=== PATIENT | male | born 1970 | race Two or more races ===

== ENCOUNTER → 2020-07-03 13:09 | Outpatient (BNVA) | payer MEDICARE, MEDICAID, SELFPAY | PROVIDERS: PCP Internal Medicine; Visit Provider Internal Medicine Endocrinology, Diabetes & Metabolism | DX: E11.65 Type 2 diabetes mellitus with hyperglycemia (principal); E11.40 Type 2 diabetes mellitus with diabetic neuropathy, unspecified; E66.9 Obesity, unspecified; I10 Essential (primary) hypertension | CPT/HCPCS: 82947; 99202 ==

== ENCOUNTER 2020-08-22 08:47 | Outpatient (REF) | payer MEDICARE, MEDICAID, SELFPAY ==
--- NOTE | ~2020-08-22 | MR_ITS ---
EXAMINATION: MR LUMBAR SPINE WITHOUT CONTRAST CLINICAL INFORMATION: 49-year-old with low back pain and left leg numbness and pain. History of previous surgery. COMPARISON: -10/03/2008 MRI TECHNIQUE: MRI of the lumbar spine was obtained using routine sequences without contrast. Technical Note: Images were degraded by motion artifact. FINDINGS: Coronal Alignment:?Normal. Sagittal Alignment:?Trace retrolisthesis at L4-5. Lumbosacral Junction:?Normal. Vertebral Bodies: Normal height. Bone Marrow: No significant marrow replacing process or bone marrow edema. Conus Medullaris:?Terminates at T12.?Morphology and signal is normal. Intradural Nerve Roots: Within normal limits within the limitations of the study, with motion artifact partially obscuring visualization. L5-S1: Minimal disc space height loss and disc desiccation are noted. There is evidence of a previous left-sided hemilaminotomy and there is mild disc bulging slightly asymmetric to the left with mild encroachment on the inferior left neural foramen with associated mild left-sided foraminal narrowing. Disc bulging abuts the ventral thecal sac slightly asymmetric to the left of midline and contacts the origin of the left S1 nerve root sleeve. L4-L5: There is trace retrolisthesis at this level with normal disc space height and signal, with mild anterior marginal spondylosis with mild ligamentum flavum thickening without significant canal or neural foraminal stenosis. L3-L4: Disc space height and signal are well maintained with mild anterolateral spondylosis and minimal disc bulging asymmetric to the left without significant facet arthrosis, canal or neural foraminal stenosis. L2-L3: Disc space height and signal are well maintained with mild anterior marginal spondylosis. Small left paramedian extruded disc herniation noted with mild cephalad migration with minimal indentation of the ventral thecal sac on the left without significant facet arthrosis, canal or neural foraminal stenosis. L1-L2: Disc space height and signal well maintained without significant disc bulge or herniation and no significant spondylosis, facet arthrosis, canal or neural foraminal stenosis. Mild anterior marginal endplate spurring noted at T12-L1 and T11-T12. Paraspinal/Retroperitoneal: The visualized paravertebral soft tissues appear unremarkable. MR/MR lumbar spine wo con IMPRESSION: 1. Postsurgical changes on the left at L5-S1 as discussed above with mild disc degenerative changes and disc bulging slightly asymmetric to the left with mild encroachment on the left S1 nerve root sleeve and mild narrowing of the left neural foramen. 2. Trace retrolisthesis at L4-L5 with mild spondylosis at this level. There are minor degrees of spondylosis throughout the remainder of the lumbar spine.
== END 2020-08-22 08:48 | disposition home or self-care (01) ==
LOC: HO.MRI 08:47
PROVIDERS: PCP Internal Medicine; Visit Provider Physical Medicine & Rehabilitation
DX: M54.16 Radiculopathy, lumbar region (principal)
CPT/HCPCS: 72148

== ENCOUNTER 2020-11-04 08:12 | Outpatient (REF) | payer MEDICARE, MEDICAID, SELFPAY ==
[2020-11-04 10:43] LABS: Estimated Average Glucose 174 mg/dL; Hemoglobin A1c % 7.7 %
[2020-11-04 10:53] LABS: Alanine Aminotransferase 23 U/L (0-40); Albumin Level 3.8 g/dL (3.5-5.0); Alkaline Phosphatase 166 U/L (39-117); Anion Gap 16 (12-20); Aspartate Amino Transferase 27 U/L (5-37); Bilirubin Total 1.4 mg/dL (0.0-1.0); Blood Urea Nitrogen 13 mg/dL (9-16); Calcium 9.3 mg/dL (8.4-10.2); Carbon Dioxide 24 mmol/L (22-29); Chloride 96 mmol/L (96-108); Cholesterol 160 mg/dL; Estimated Glomerular Filt Rate > 60; Glucose Fasting 370 mg/dL (60-99); HDL Cholesterol 82 mg/dL; LDL Cholesterol Calculated 58 mg/dl; Potassium 4.1 mmol/L (3.3-5.1); Sodium 132 mmol/L (135-145); Triglycerides 102 mg/dL
[2020-11-04 11:01] LABS: Free T4 (Free Thyroxine) 0.95 ng/dL (0.71-1.85); Thyroid Stimulating Hormone 0.85 uIU/mL (0.32-4.0)
[2020-11-04 11:14] LABS: Vitamin B12 618 pg/mL (200-900)
[2020-11-05 08:07] LABS: LDL Cholesterol Direct 58 mg/dL (<100)
[2020-11-05 09:16] LABS: C Peptide 5.38 ng/mL (0.80-3.85)
== END 2020-11-04 08:13 | disposition home or self-care (01) ==
LOC: HO.10HDL 08:12
PROVIDERS: PCP Internal Medicine; Visit Provider Internal Medicine Endocrinology, Diabetes & Metabolism
DX: E11.65 Type 2 diabetes mellitus with hyperglycemia (principal); E11.40 Type 2 diabetes mellitus with diabetic neuropathy, unspecified; E66.9 Obesity, unspecified; I10 Essential (primary) hypertension; R35.1 Nocturia; H53.8 Other visual disturbances; F41.9 Anxiety disorder, unspecified; Z79.899 Other long term (current) drug therapy; Z79.4 Long term (current) use of insulin
CPT/HCPCS: 36415; 80053; 80061; 82607; 82947; 83036; 83721; 84439; 84443; 84681; 99212

== ENCOUNTER 2021-01-10 08:47 | Emergency (ER) | payer MEDICARE, MEDICAID, SELFPAY ==
[2021-01-10 09:15] VITALS: BP 132/85; PULSE 105; RESP 18; TEMP 35.5; O2SAT 95; BMI 36.9
--- NOTE | 2021-01-10 09:36 | ED_ITS ---
HPI - Allergic Reaction General Chief complaint: Allergic Reaction Stated complaint: ? allergic reaction Time Seen by Provider: 01/10/21 09:20 Source: patient Mode of arrival: ambulatory Limitations: no limitations History of Present Illness HPI narrative: Patient comes emergency room complaining of swelling in his neck and his lips. Patient states that yesterday for the 1st time he took lisinopril, states that in the afternoon he started feeling that his neck was getting swollen but had no respiratory difficulty. Patient woke up this morning with swollen lips and come to emergency room. Patient denies any shortness of breath, mild difficulty swallowing due to the swelling. MD complaint: facial swelling Related Data Home Medications Medication Instructions Recorded Confirmed olanzapine 10 mg tablet 10 mg PO BEDTIME 04/17/20 11/04/20 Previous Rx's Medication Instructions Recorded benztropine 2 mg tablet 2 mg PO DAILY #90 tab 04/19/20 citalopram 20 mg tablet 20 mg PO DAILY #90 tab 04/19/20 furosemide 20 mg tablet 20 mg PO DAILY #90 tab 04/19/20 levalbuterol tartrate 45 2 puff INHALATION Q4-6H PRN #15 g 04/19/20 mcg/actuation aerosol inhaler (Xopenex HFA) metoprolol tartrate 25 mg tablet 25 mg PO BID #180 tab 04/19/20 blood sugar diagnostic (FreeStyle #100 ea 07/18/20 Lite Strips) blood-glucose meter (FreeStyle #1 ea 07/18/20 Lite Meter) lancets 28 gauge (FreeStyle #100 ea 07/18/20 Lancets) dulaglutide 1.5 mg/0.5 mL 1.5 mg SUBCUT QWEEK 30 Days #2.5 ml 11/04/20 [facility] glipizide 10 mg tablet 10 mg PO DAILY 90 Days #90 tab 11/04/20 insulin degludec 100 unit/mL (3 20 unit SUBCUT BEDTIME 30 Days #15 11/04/20 mL) subcutaneous pen (Tresiba ml FlexTouch U-100 insulin) lisinopril 20 mg tablet 20 mg PO DAILY 90 Days #90 tab 11/04/20 metformin 500 mg tablet 500 mg PO BID #180 tab 11/04/20 pen needle, diabetic 32 gauge x #50 ea 11/04/20 (BD Leonora 2nd Gen Pen Needle) amlodipine 5 mg tablet 5 mg PO DAILY #14 tab 01/10/21 diphenhydramine HCl 25 mg capsule 25 mg PO BEDTIME #4 cap 01/10/21 (Benadryl) famotidine 20 mg tablet (Pepcid) 20 mg PO DAILY #4 tab 01/10/21 prednisone 50 mg tablet 50 mg PO DAILY #4 tab 01/10/21 Allergies Allergy/AdvReac Type Severity Reaction Status Date / Time lisinopril AdvReac Severe Angioedema Verified 01/10/21 09:37 Review of Systems Review of Systems: Constitutional : No Weight loss, No Fever, No Chills, No Night Sweats, No Fatigue, No Malaise ENT/Mouth : No Hearing loss, No Ear Pain, No Nasal Congestion, No Sinus Pain, No Hoarseness, No sore throat, No Rhinorrhea, complaining of swelling sensation in his neck, swollen lips, mild difficulty swallowing Eyes: No Eye Pain, No Swelling, No Redness, No Foreign Body, No Discharge, No Vision Changes Cardiovascular : No Chest Pain, No SOB, No Dyspnea on Exertion, No Orthopnea, No Edema, No Palpitations Respiratory : No Cough, No Sputum, No Wheezing, No Smoke Exposure, No Dyspnea Gastrointestinal : No Nausea, No Vomiting, No Diarrhea, No Constipation, No abd ominal Pain, No Hematochezia, No Melena Genitourinary : no irregular bleeding, No Dysuria, No Urinary Frequency, No Hematuria, No Urinary Incontinence, No Urgency, No Flank Pain, No Urinary Flow Changes, No Hesitancy Musculoskeletal : No joint pain, No Myalgias, No Joint Swelling Skin : No Skin Lesions, No rash Neuro : No Weakness, No Numbness, No Paresthesias, No Loss of Consciousness, No Dizziness, No Headache Psych : No Anxiety/Panic, No Depression, No SI/HI/AH/VH, No Social Issues, Heme/Lymph: No Bruising, No Bleeding,No Lymphadenopathy Endocrine : No Polyuria, No Polydipsia, No Temperature Intolerance [facility] Past Medical History Medical History Diabetes mellitus Diabetes type 2, uncontrolled Diabetic neuropathy associated with type 2 diabetes mellitus Hypertension Obesity (BMI 30-39.9) Surgical History History of circumcision History of lumbar surgery Family History Family History Father No problems noted. Mother No problems noted. Social History Social History Alcohol intake: never Smoked in Last 30 Days: No Use of substances other than those prescribed or required for medical reasons: No Advance Directives: No Advance Directives Information Provided: No Physical Exam Vital Signs: Vital Signs: Last Vital Signs Temp 95.9 F L 01/10/21 09:15 Pulse 105 H 01/10/21 09:15 Resp 18 01/10/21 09:15 BP 132/85 01/10/21 09:15 Pulse Ox 95 01/10/21 09:15 Body Mass Index 36.9 Const: Other: Appearance: Alert. Oriented X3. No acute distress. Eyes: Pupils equal, round and reactive to light. ENT: Pharynx normal. Uvula within normal limits, upper and lower lips edematous Neck: Normal inspection. Neck supple. Mild edematous changes in the neck bilaterally CVS: Normal heart rate and rhythm. Pulses normal. Normal S1 and S2 Respiratory: No respiratory distress. Breath sounds normal. No Wheezing. No rales Abdomen: Soft and nontender. No rigidity. No distention. Skin: Skin warm and dry. Normal skin color. Normal skin turgor. Extremities: No lower extremity edema. No lower extremity edema. No Lacerations. No Rash Neuro: Oriented X 3. No motor deficit. No sensory deficit. Moving all extermities. No slurred speech. Course Course Course Narrative: Patient received 2 doses of Solu-Medrol, Pepcid and Benadryl. Patient's lips are nearly back to normal. Patient has no symptoms, states he feels much better. No oropharyngeal edema present. This time, patient may be discharged home, discussed with the patient not to take lisinopril ever again. I will go ahead and switch his blood pressure medication and has instructions to follow-up with his primary care physician. Dr. Ji also saw the patient in the ED, at this time, he also does not believe that the patient is to be admitted, as mentioned above patient is nearly back to baseline and asymptomatic MDM - Allergic Reaction Lab Data Result diagrams: 01/10/21 10:07 01/10/21 12:13 Labs: Lab Results 01/10/21 01/10/21 Range/Units 10:07 12:13 WBC 10.7 (4.8-10.8) X10*3/uL RBC 5.36 (4.60-5.80) X10*6/uL Hgb 16.0 (14.0-18.0) g/dl Hct 48.1 (42-52) % MCV 89.7 (80-98) fL MCH 29.9 (27.0-33.0) pg MCHC 33.3 (31.0-36.0) g/dl RDW 13.0 (11.0-16.0) % Plt Count 186 (160-400) X10*3/uL MPV 9.4 (9.4-12.4) fL Immature Gran % (Auto) 0.6 H (0.0-0.4) % Neut % (Auto) 74.9 H (45-73) % Lymph % (Auto) 14.4 L (20-40) % Polk % (Auto) 6.2 (2-11) % Eos % (Auto) 3.2 (0-4) % Baso % (Auto) 0.7 (0-2) % Lymph # (Auto) 1.5 (1.2-4.9) X10*3/uL Polk # (Auto) 0.7 (0.1-1.2) X10*3/uL Eos # (Auto) 0.3 (0.0-0.4) X10*3/uL Baso # (Auto) 0.1 (0.0-0.2) X10*3/uL Abs Immat Gran (auto) 0.06 H (0.00-0.03) X10*3/uL Absolute Neuts (auto) 8.0 (2.0-8.3) X10*3/uL Absolute Nucleated RBC 0.000 (0.0-0.012) X10*3/uL Nucleated RBC % (auto) 0.0 (0.0-0.2) /100WBC Sodium 135 (135-145) mmol/L Potassium 4.7 (3.3-5.1) mmol/L Chloride 106 (96-108) mmol/L Carbon Dioxide 20 L (22-29) mmol/L Anion Gap 14 (12-20) BUN 11 (9-16) mg/dL Creatinine 0.81 (0.5-1.4) mg/dL Estim Creat Clear Calc 132.4 Estimated GFR > 60 Random Glucose 130 H (60-115) mg/dL Calcium 9.3 (8.4-10.2) mg/dL Total Bilirubin 1.6 H (0.0-1.0) mg/dL Direct Bilirubin 0.7 H (0.0-0.5) mg/dL AST 34 (5-37) U/L ALT 22 (0-40) U/L Alkaline Phosphatase 116 D (39-117) U/L Total Protein 7.9 (6.5-8.0) g/dL Albumin 3.8 (3.5-5.0) g/dL Discharge Plan Discharge Clinical Impression: Angioedema Qualifiers: Encounter type: initial encounter Qualified Code(s): T78.3XXA - Angioneurotic edema, initial encounter Patient Disposition: Home, Self-Care Instructions: Angioedema (ED) Additional Instructions: Do not take lisinopril ever again. Please follow-up with your primary care physician tomorrow. If you have any worsening or new symptoms, please return to the emergency room or call 911 Prescriptions: New amlodipine 5 mg tablet 5 mg PO DAILY Qty: 14 RF: 0 prednisone 50 mg tablet 50 mg PO DAILY Qty: 4 RF: 0 diphenhydramine HCl [Benadryl] 25 mg capsule 25 mg PO BEDTIME Qty: 4 RF: 0 famotidine [Pepcid] 20 mg tablet 20 mg PO DAILY Qty: 4 RF: 0 No Action benztropine 2 mg tablet 2 mg PO DAILY Qty: 90 RF: 8 citalopram 20 mg tablet 20 mg PO DAILY Qty: 90 RF: 8 metoprolol tartrate 25 mg tablet 25 mg PO BID Qty: 180 RF: 8 furosemide 20 mg tablet 20 mg PO DAILY Qty: 90 RF: 8 levalbuterol tartrate [Xopenex HFA] 45 mcg/actuation HFA aerosol inhaler 2 puff inhalation Q4-6H PRN (Reason: shortness of breath or wheezing) Qty: 15 RF: 8 (DME) FreeStyle Lite Strips Strip See Rx Instructions .ROUTE .MEDSUPPLY Qty: 100 RF: 6 (DME) blood-glucose meter [FreeStyle Lite Meter] Kit See Rx Instructions .ROUTE .MEDSUPPLY Qty: 1 RF: 0 (DME) lancets [FreeStyle Lancets] 28 gauge misc See Rx Instructions .ROUTE .MEDSUPPLY Qty: 100 RF: 6 olanzapine 10 mg tablet 10 mg PO BEDTIME RF: 0 insulin lispro [Humalog U-100 Insulin] 100 unit/mL solution 5 unit subcut ONCE Qty: 0.05 RF: 0 glipizide 10 mg tablet 10 mg PO DAILY 90 Days Qty: 90 RF: 1 Tresiba FlexTouch U-100 100 unit/mL (3 mL) insulin pen 20 unit subcut BEDTIME 30 Days Qty: 15 RF: 6 metformin 500 mg tablet 500 mg PO BID Qty: 180 RF: 8 lisinopril 20 mg tablet 20 mg PO DAILY 90 Days Qty: 90 RF: 2 (DME) pen needle, diabetic [BD Leonora 2nd Gen Pen Needle] 32 gauge x 5/32 needle See Rx Instructions .ROUTE .MEDSUPPLY Qty: 50 RF: 4 Trulicity 1.5 mg/0.5 mL pen injector 1.5 mg subcut QWEEK 30 Days Qty: 2.5 RF: 6
[2021-01-10 10:11] LABS: MANUAL DIFF FLAG NO
[2021-01-10] MEDS: Famotidine/PF 20 MG/2 ML VIAL IVPUSH ×2 (10:11→12:58)
[2021-01-10] MEDS: methylPREDNISolone Sod Succ 125 MG/2 ML VIAL IVPUSH ×2 (10:11→12:59)
[2021-01-10] MEDS: diphenhydrAMINE HCL 50 MG/ML VIAL IVPUSH (10:11)
[2021-01-10 10:12] LABS: Basophils Absolute Auto 0.1 X10*3/uL (0.0-0.2); Basophils Percent Auto 0.7 % (0-2); Eosinophils Absolute Auto 0.3 X10*3/uL (0.0-0.4); Eosinophils Percent Auto 3.2 % (0-4); Hematocrit 48.1 % (42-52); Imm Gran Abs Auto 0.06 X10*3/uL (0.00-0.03); Imm Gran Pct Auto 0.6 % (0.0-0.4); Lymphocytes Absolute Auto 1.5 X10*3/uL (1.2-4.9); Lymphocytes Percent Auto 14.4 % (20-40); Mean Corpuscular HGB Conc 33.3 g/dl (31.0-36.0); Mean Corpuscular Hemoglobin 29.9 pg (27.0-33.0); Mean Corpuscular Volume 89.7 fL (80-98); Mean Platelet Volume 9.4 fL (9.4-12.4); Monocytes Absolute Auto 0.7 X10*3/uL (0.1-1.2); Monocytes Percent Auto 6.2 % (2-11); Neutrophils Percent Auto 74.9 % (45-73); Platelet Count 186 X10*3/uL (160-400); Red Blood Count 5.36 X10*6/uL (4.60-5.80); White Blood Count 10.7 X10*3/uL (4.8-10.8)
[2021-01-10 12:56] LABS: Alanine Aminotransferase 22 U/L (0-40); Albumin Level 3.8 g/dL (3.5-5.0); Alkaline Phosphatase 116 U/L (39-117); Anion Gap 14 (12-20); Aspartate Amino Transferase 34 U/L (5-37); Bilirubin Direct 0.7 mg/dL (0.0-0.5); Bilirubin Total 1.6 mg/dL (0.0-1.0); Blood Urea Nitrogen 11 mg/dL (9-16); Calcium 9.3 mg/dL (8.4-10.2); Carbon Dioxide 20 mmol/L (22-29); Chloride 106 mmol/L (96-108); Creatinine Clr Calc Pharmacy 132.4; Estimated Glomerular Filt Rate > 60; Glucose Random 130 mg/dL (60-115); Potassium 4.7 mmol/L (3.3-5.1); Sodium 135 mmol/L (135-145); Total Protein 7.9 g/dL (6.5-8.0)
[2021-01-10 13:49] VITALS: BP 134/87; PULSE 88; RESP 16; TEMP 36.7; O2SAT 98
== END 2021-01-10 13:50 | disposition home or self-care (01) ==
PROVIDERS: Emergency Provider Emergency Medicine; PCP Internal Medicine
DX: T78.3XXA Angioneurotic edema, initial encounter (principal); T46.4X5A Adverse effect of angiotensin-converting-enzyme inhibitors, initial encounter; Y92.9 Unspecified place or not applicable; I10 Essential (primary) hypertension; E11.9 Type 2 diabetes mellitus without complications; Z79.4 Long term (current) use of insulin
CPT/HCPCS: 36415; 80048; 80076; 85025; 96374; 96375; 96376; 99284; J1200; J2930

== ENCOUNTER → 2021-03-10 08:58 | Outpatient (BNVA) | payer MEDICARE, MEDICAID, SELFPAY | PROVIDERS: PCP Internal Medicine; Visit Provider Nurse Practitioner Gerontology | DX: E11.65 Type 2 diabetes mellitus with hyperglycemia (principal); I10 Essential (primary) hypertension; E66.01 Morbid (severe) obesity due to excess calories; Z68.36 Body mass index [BMI] 36.0-36.9, adult | CPT/HCPCS: 82947; 83036; 99212 ==

== ENCOUNTER → 2021-03-27 14:16 | Outpatient (BNVA) | payer MEDICARE, MEDICAID, SELFPAY | PROVIDERS: PCP Internal Medicine; Visit Provider Nurse Practitioner Gerontology | DX: Z13.89 Encounter for screening for other disorder (principal) | CPT/HCPCS: Q3014 ==

== ENCOUNTER → 2021-07-14 08:55 | Outpatient (BNVA) | payer MEDICARE, MEDICAID, SELFPAY | PROVIDERS: PCP Internal Medicine; Visit Provider Nurse Practitioner Gerontology | DX: E11.65 Type 2 diabetes mellitus with hyperglycemia (principal); E66.01 Morbid (severe) obesity due to excess calories; I10 Essential (primary) hypertension; Z68.36 Body mass index [BMI] 36.0-36.9, adult | CPT/HCPCS: 82947; 83036; 99212 ==

== ENCOUNTER 2021-10-08 10:18 | Outpatient (REF) | payer MEDICARE, MEDICAID, SELFPAY ==
[2021-10-08 11:28] LABS: Alanine Aminotransferase 30 U/L (0-40); Albumin Level 3.9 g/dL (3.5-5.0); Alkaline Phosphatase 140 U/L (39-117); Anion Gap 15 (12-20); Aspartate Amino Transferase 37 U/L (5-37); Bilirubin Total 1.8 mg/dL (0.0-1.0); Blood Urea Nitrogen 8 mg/dL (9-16); Calcium 9.6 mg/dL (8.4-10.2); Carbon Dioxide 22 mmol/L (22-29); Chloride 103 mmol/L (96-108); Cholesterol 186 mg/dL; Estimated Glomerular Filt Rate > 60; Glucose Fasting 147 mg/dL (60-99); HDL Cholesterol 85 mg/dL; LDL Cholesterol Calculated 85 mg/dl; Potassium 4.4 mmol/L (3.3-5.1); Sodium 136 mmol/L (135-145); Total Protein 8.2 g/dL (6.5-8.0); Triglycerides 80 mg/dL
[2021-10-08 13:47] LABS: Microalbum/Creatinine Ratio Ur 20.1 ug/mg cr
[2021-10-10 00:46] LABS: LDL Cholesterol Direct 73 mg/dL (<100)
== END 2021-10-08 10:19 | disposition home or self-care (01) ==
LOC: HO.10HDL 10:18
PROVIDERS: Visit Provider Nurse Practitioner Gerontology
DX: E11.65 Type 2 diabetes mellitus with hyperglycemia (principal)
CPT/HCPCS: 36415; 80053; 80061; 82043; 83721

== ENCOUNTER → 2021-10-13 09:24 | Outpatient (BNVA) | payer MEDICARE, MEDICAID, SELFPAY | PROVIDERS: PCP Internal Medicine; Visit Provider Nurse Practitioner Gerontology | DX: E11.65 Type 2 diabetes mellitus with hyperglycemia (principal); I10 Essential (primary) hypertension; E66.01 Morbid (severe) obesity due to excess calories; Z68.36 Body mass index [BMI] 36.0-36.9, adult; Z79.4 Long term (current) use of insulin | CPT/HCPCS: 82947; 83036; 99212 ==

== ENCOUNTER 2021-10-26 11:53 | Emergency (ER) | payer MEDICARE, MEDICAID, SELFPAY ==
[2021-10-26 12:06] VITALS: BP 153/91; PULSE 104; RESP 18; TEMP 36.6; O2SAT 95; BMI 35.6
--- NOTE | 2021-10-26 15:35 | ED_ITS ---
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 He was seen here in December 2020 for angioedema after he was started on Lisinopril. He states he accidentally took the lisinopril because the old bottle was in with his medications. He denies any lip or tongue swelling, no neck swelling, no foreign body sensation in the throat, no rash or hives. No wheezing or difficulty breathing. He did not take any Benadryl prior to coming to the ER. MD complaint: other Onset (ago): hour(s) (4) Exposure: medication Symptoms: other (Anxiety, no physical symptoms of angioedema) Treatment prior to arrival: none Previous Allergic Reaction History: prior ED visit(s) and angioedema Related Data Home Medications Medication Instructions Recorded Confirmed olanzapine 10 mg tablet 10 mg PO BEDTIME 04/17/20 03/27/21 zolpidem 10 mg tablet 10 mg PO BEDTIME PRN 03/10/21 03/27/21 Previous Rx's Medication Instructions Recorded benztropine 2 mg tablet 2 mg PO DAILY #90 tab 04/19/20 citalopram 20 mg tablet 20 mg PO DAILY #90 tab 04/19/20 furosemide 20 mg tablet 20 mg PO DAILY #90 tab 04/19/20 levalbuterol tartrate 45 2 puff INHALATION Q4-6H PRN #15 g 04/19/20 mcg/actuation aerosol inhaler (Xopenex HFA) metoprolol tartrate 25 mg tablet 25 mg PO BID #180 tab 04/19/20 blood-glucose meter (FreeStyle #1 ea 07/18/20 Lite Meter) lancets 28 gauge (FreeStyle #100 ea 07/18/20 Lancets) pen needle, diabetic 32 gauge x #50 ea 11/04/20 (BD Leonora 2nd Gen Pen Needle) diphenhydramine HCl 25 mg capsule 25 mg PO BEDTIME #4 cap 01/10/21 (Benadryl) famotidine 20 mg tablet (Pepcid) 20 mg PO DAILY #4 tab 01/10/21 prednisone 50 mg tablet 50 mg PO DAILY #4 tab 01/10/21 blood sugar diagnostic (FreeStyle #100 ea 03/11/21 Lite Strips) insulin degludec 100 unit/mL (3 10 unit (0.1 mL) SUBCUT BEDTIME 30 03/27/21 mL) subcutaneous pen (Tresi Days #15 ml FlexTouch U-100 insulin) metformin 500 mg tablet 1,000 mg PO BID 90 Days #360 tab 08/15/21 glipizide 10 mg tablet 10 mg PO DAILY 90 Days #90 tab 08/22/21 atorvastatin 10 mg tablet 10 mg PO BEDTIME #30 tab 10/13/21 dulaglutide 3 mg/0.5 mL 3 mg (0.5 mL) SUBCUT QWEEK 28 Days 10/13/21 subcutaneous pen injector #2 ml (Trulicity) Allergies Allergy/AdvReac Type Severity Reaction Status Date / Time lisinopril AdvReac Severe Angioedema Verified 10/13/21 09:48 Review of Systems Review of Systems: Constitutional: No Fever, No Chills ENT/Mouth: No sore throat, No lip swelling, no tongue swelling, No Swallowing Difficulty Eyes: No Eye Pain, No Swelling, No Redness Cardiovascular: No Chest Pain, No SOB Respiratory: No Cough, No Sputum, No Wheezing, No dyspnea Skin: No Skin Lesions, No rash Neuro: No Dizziness, No Headache Psych: + Anxiety/Panic, No Depression Heme/Lymph: No Bruising, No Lymphadenopathy PMFSH Past Medical History Medical History Diabetes mellitus Diabetes type 2, uncontrolled Diabetic neuropathy associated with type 2 diabetes mellitus Hypertension Obesity (BMI 30-39.9) Obesity due to excess calories Surgical History History of circumcision History of lumbar surgery Family History Family History Father Diabetes Hypertension Heart disease Mother Diabetes Hypertension Heart disease Social History Social History Household Members: Significant Other Alcohol intake: current Patient Tobacco Use Status: Never used Tobacco Advance Directives: No Advance Directives Information Provided: No Physical Exam ED Vital Signs: Vital Signs - 24 hr 10/26/21 12:06 Temperature 97.9 F Pulse Rate 104 H Respiratory Rate 18 Blood Pressure 153/91 H Pulse Oximetry 95 BMI result Body Mass Index 35.6 Appearance: Alert. Oriented X3. No acute distress. HEENT: normal inspection, normal appearance of the lips, tongue, airway patent. Normal voice handling secretions appropriately. No facial rash. CVS: Normal heart rate and rhythm. Pulses normal. Respiratory: No respiratory distress. Lungs are clear throughout. Skin: Skin warm and dry. Normal skin color. Normal skin turgor. No rashes. Extremities: Atraumatic, normal inspection times 4 Neuro: Oriented X 3. Grossly normal, nonfocal Course Course Course Narrative: 51-year-old male with history of angioedema induced by lisinopril presents to the ER for evaluation after he accidentally ingested 1 pill of lisinopril this morning about 4 hours ago. He has manifested no symptoms of angioedema at this time and has a normal physical exam. He was counseled on what to do if he were to develop signs or symptoms of angioedema. His will throat the pill bottle of the remaining lisinopril tablets at home. He is stable for discharge home and will call 911 if he develops angioedema. Discharge Plan Discharge Clinical Impression: Adverse reaction to drug Patient Disposition: Home, Self-Care Instructions: Angioedema (ED) Additional Instructions: IF you develop any facial or lip swelling, any difficulty swallowing, tongue sw elling, wheezing or any other concerning signs or symptoms of angioedema call 911. THROW AWAY YOUR LISINOPRIL :) Prescriptions: No Action benztropine 2 mg tablet 2 mg PO DAILY Qty: 90 8RF citalopram 20 mg tablet 20 mg PO DAILY Qty: 90 8RF metoprolol tartrate 25 mg tablet 25 mg PO BID Qty: 180 8RF furosemide 20 mg tablet 20 mg PO DAILY Qty: 90 8RF levalbuterol tartrate [Xopenex HFA] 45 mcg/actuation HFA aerosol inhaler 2 puff inhalation Q4-6H PRN (Reason: shortness of breath or wheezing) Qty: 15 8RF (DME) blood-glucose meter [FreeStyle Lite Meter] Kit See Rx Instructions .ROUTE .MEDSUPPLY Qty: 1 0RF Rx Instructions: 3 times a day, E11.65 (DME) lancets [FreeStyle Lancets] 28 gauge misc See Rx Instructions .ROUTE .MEDSUPPLY Qty: 100 6RF Rx Instructions: 3 times a day, E11.65 (DME) FreeStyle Lite Strips Strip See Rx Instructions .ROUTE .MEDSUPPLY Qty: 100 11RF Rx Instructions: 3 times a day, E11.65 metformin 500 mg tablet 1,000 mg PO BID 90 Days Qty: 360 3RF glipizide 10 mg tablet 10 mg PO DAILY 90 Days Qty: 90 1RF Rx Instructions: One tablet before breakfast prednisone 50 mg tablet 50 mg PO DAILY Qty: 4 0RF Rx Instructions: start 01/11/21 diphenhydramine HCl [Benadryl] 25 mg capsule 25 mg PO BEDTIME Qty: 4 0RF Rx Instructions: start 01/11/21 famotidine [Pepcid] 20 mg tablet 20 mg PO DAILY Qty: 4 0RF olanzapine 10 mg tablet 10 mg PO BEDTIME 0RF (DME) pen needle, diabetic [BD Leonora 2nd Gen Pen Needle] 32 gauge x 5/32 needle See Rx Instructions .ROUTE .MEDSUPPLY Qty: 50 4RF Rx Instructions: once a day zolpidem 10 mg tablet 10 mg PO BEDTIME PRN0RF Tresiba FlexTouch U-100 100 unit/mL (3 mL) insulin pen 10 unit subcut BEDTIME 30 Days Qty: 15 3RF atorvastatin 10 mg tablet 10 mg PO BEDTIME Qty: 30 11RF Trulicity 3 mg/0.5 mL pen injector 3 mg subcut QWEEK 28 Days Qty: 2 6RF Interventions: ED Discharge Assessment Last Done: 10/26/21 15:53 Discharge Date/Time: 10/26/21 15:55
== END 2021-10-26 15:55 | disposition home or self-care (01) ==
LOC: HO.ED 15:49
PROVIDERS: Emergency Provider Emergency Medicine; PCP Internal Medicine
DX: T88.7XXA Unspecified adverse effect of drug or medicament, initial encounter (principal); T46.4X5A Adverse effect of angiotensin-converting-enzyme inhibitors, initial encounter; Y92.9 Unspecified place or not applicable; I10 Essential (primary) hypertension; E11.9 Type 2 diabetes mellitus without complications
CPT/HCPCS: 99282

== ENCOUNTER 2022-07-01 08:29 | Outpatient (REF) | payer MEDICARE, MEDICAID, SELFPAY ==
[2022-07-01 08:45] LABS: MANUAL DIFF FLAG NO
[2022-07-01 09:02] LABS: Basophils Absolute Auto 0.1 X10*3/uL (0.0-0.2); Eosinophils Absolute Auto 0.2 X10*3/uL (0.0-0.4); Eosinophils Percent Auto 3.4 % (0-4); Hematocrit 46.3 % (42.0-52.0); Hemoglobin 15.7 g/dl (14.0-18.0); Imm Gran Abs Auto 0.06 X10*3/uL (0.00-0.03); Lymphocytes Absolute Auto 1.2 X10*3/uL (1.2-4.9); Lymphocytes Percent Auto 21.1 % (20-40); Mean Corpuscular HGB Conc 33.9 g/dl (31.0-36.0); Mean Corpuscular Hemoglobin 31.5 pg (27.0-33.0); Mean Platelet Volume 9.9 fL (9.4-12.4); Monocytes Absolute Auto 0.6 X10*3/uL (0.1-1.2); Monocytes Percent Auto 9.4 % (2-11); Neutrophils Absolute Auto 3.7 x10*3/uL (2.0-8.3); Neutrophils Percent Auto 64.1 % (45-73); Platelet Count 133 X10*3/uL (160-400); Red Blood Count 4.98 X10*6/uL (4.60-5.80); Red Cell Distribution Width 12.9 % (11.0-16.0); White Blood Count 5.8 X10*3/uL (4.8-10.8)
[2022-07-01 09:05] LABS: Estimated Average Glucose 140 mg/dL; Hemoglobin A1c % 6.5 %
[2022-07-01 09:40] LABS: Thyroid Stimulating Hormone 1.77 uIU/mL (0.32-4.0)
[2022-07-01 09:49] LABS: Creatinine Urine 202.17 mg/dL; Microalbum/Creatinine Ratio Ur 18.3 ug/mg cr
== END 2022-07-01 08:30 | disposition home or self-care (01) ==
LOC: HO.LAB 08:29
PROVIDERS: PCP Internal Medicine; Visit Provider Internal Medicine
DX: E03.9 Hypothyroidism, unspecified (principal); E11.65 Type 2 diabetes mellitus with hyperglycemia; E11.69 Type 2 diabetes mellitus with other specified complication; D64.9 Anemia, unspecified; E66.01 Morbid (severe) obesity due to excess calories
CPT/HCPCS: 36415; 80053; 80061; 82043; 83036; 84443; 85025

== ENCOUNTER 2022-07-02 09:25 | Outpatient (REF) | payer MEDICARE, MEDICAID, SELFPAY ==
[2022-07-02 11:20] LABS: Alanine Aminotransferase 69 U/L (0-40); Albumin Level 3.7 g/dL (3.5-5.0); Alkaline Phosphatase 172 U/L (39-117); Anion Gap 16 (12-20); Aspartate Amino Transferase 88 U/L (5-37); Bilirubin Total 1.8 mg/dL (0.0-1.0); Blood Urea Nitrogen 9 mg/dL (9-16); Calcium 9.5 mg/dL (8.4-10.2); Carbon Dioxide 26 mmol/L (22-29); Chloride 100 mmol/L (96-108); Cholesterol 190 mg/dL; Estimated Glomerular Filt Rate > 60; Glucose Fasting 143 mg/dL (60-99); HDL Cholesterol 89 mg/dL; LDL Cholesterol Calculated 90 mg/dl; Potassium 4.4 mmol/L (3.3-5.1); Sodium 138 mmol/L (135-145); Total Protein 7.6 g/dL (6.5-8.0); Triglycerides 58 mg/dL
== END 2022-07-02 09:26 | disposition home or self-care (01) ==
LOC: HO.LAB 09:25
PROVIDERS: PCP Internal Medicine; Visit Provider Internal Medicine
DX: N28.9 Disorder of kidney and ureter, unspecified (principal); E78.5 Hyperlipidemia, unspecified
CPT/HCPCS: 36415; 80053; 80061

== ENCOUNTER 2022-10-09 23:55 | Emergency (ER) | payer MEDICARE, MEDICAID, SELFPAY ==
--- NOTE | ~2022-10-09 | CT_ITS ---
EXAMINATION: NONCONTRAST HEAD CT NONCONTRAST MAXILLOFACIAL CT NONCONTRAST CERVICAL SPINE CT INDICATION INFORMATION: Fall. EtOH. COMPARISON: None TECHNIQUE: Separate noncontrast CT examinations of the head, maxillofacial bones, and cervical spine were performed. Coronal and sagittal images were created for each examination at the technologist workstation. This CT examination was performed using dose optimization techniques as appropriate, variously including the following: *Automated exposure control *Adjustment of mA and/or kV according to patient size (this includes techniques or standardized protocols for targeted exams where dose is matched to indication/reason for exam; i.e. extremities or head) *Use of iterative reconstruction technique DLP: 1949 mGy-cm FINDINGS: Head: There is no evidence of acute intracranial hemorrhage or territorial infarction. No abnormal mass effect or midline shift is seen. Alexander to white matter differentiation is well preserved. No extra-axial fluid collections are identified. No hydrocephalus. Proportional prominence of the ventricles and sulcal spaces is consistent with mild volume loss. Patchy periventricular and deep white matter hypoattenuation is consistent with mild small vessel ischemic changes. No acute soft tissue abnormality. No calvarial fracture. The mastoid air cells are well aerated. Maxillofacial: No acute maxillofacial fractures are seen. The pterygoid plates are intact. Lamina papyracea are intact. The zygomatic arches are intact. The nasal bone is intact. The mandible is intact. Diffuse paranasal sinus opacification. The infundibula and middle meati are occluded. The nasal septum is midline. The mandibular heads are well-seated in the condylar fossa. Degenerative changes at the left temporomandibular joint. Multiple dental caries present. The orbits demonstrate a normal appearance bilaterally. The globes are intact, and there are no suspicious findings to suggest retrobulbar hemorrhage. Cervical spine: There is anatomic alignment of the vertebral bodies and posterior elements. The atlantoaxial and atlantooccipital articulations are intact. Vertebral body heights are maintained. There is multilevel intervertebral disc space narrowing with endplate osteophyte formation and facet arthropathy. No evidence of acute fracture. No prevertebral soft tissue swelling. Visualized portions of the lung apices are unremarkable. The thyroid gland is unremarkable. CT/CT cervical spine wo IV con IMPRESSION: 1. No acute intracranial finding. 2. No acute maxillofacial fracture. 3. No acute fracture or malalignment of the cervical spine. Moderate degenerative changes.
--- NOTE | 2022-10-10 00:07 | ECG_ITS ---
Test Reason : FALL /ETOH Blood Pressure : / mmHG Vent. Rate : 108 BPM Atrial Rate : 108 BPM P-R Int : 152 ms QRS Dur : 084 ms QT Int : 364 ms P-R-T Axes : 038 037 017 degrees QTc Int : 487 ms Sinus tachycardia Otherwise normal ECG When compared with ECG of 10-JAN-2018 02:58, No significant change was found Referred By: Roz Andrew Electronically Signed By:Carlos Patiño
[2022-10-10 00:08] VITALS: BP 140/82; PULSE 108; O2SAT 94
--- NOTE | 2022-10-10 00:09 | ED_ITS ---
HPI - Alcohol General Chief Complaint: Fall Stated Complaint: Fall/ETOH Time Seen by Provider: 10/10/22 00:01 Source: patient and EMS Mode of arrival: EMS Limitations: other (Intoxicated) History of Present Illness HPI narrative: Patient comes emergency room via EMS. Patient was drinking alcohol earlier today. Patient was with family, patient tripped, fell into a car and then face planted on the floor. Patient did not lose consciousness, patient on blood thinners. Patient has a bloody nose, multiple abrasions to the face, denies neck pain. Patient is awake and alert but intoxicated, answering questions a ppropriately Related Data Home Medications Medication Instructions Recorded Confirmed olanzapine 10 mg tablet 10 mg PO BEDTIME 04/17/20 06/11/22 zolpidem 10 mg tablet 10 mg PO BEDTIME PRN 03/10/21 06/11/22 sertraline 100 mg tablet 100 mg PO DAILY 06/11/22 06/11/22 Previous Rx's Medication Instructions Recorded citalopram 20 mg tablet 20 mg PO DAILY #90 tabs 04/19/20 furosemide 20 mg tablet 20 mg PO DAILY #90 tabs 04/19/20 levalbuterol tartrate 45 2 puff inhalation Q4-6H PRN 04/19/20 mcg/actuation aerosol inhaler shortness of breath or wheezing (Xopenex HFA) #15 grams metoprolol tartrate 25 mg tablet 25 mg PO BID #180 tabs 04/19/20 diphenhydramine HCl 25 mg capsule 25 mg PO BEDTIME #4 caps 01/10/21 (Benadryl) famotidine 20 mg tablet (Pepcid) 20 mg PO DAILY #4 tabs 01/10/21 glipizide 10 mg tablet 10 mg PO DAILY 90 days #90 tabs 08/22/21 atorvastatin 10 mg tablet 10 mg PO BEDTIME #30 tabs 10/13/21 blood sugar diagnostic (FreeStyle #100 ea 09/01/22 Lite Strips) blood-glucose meter (FreeStyle #1 ea 09/01/22 Lite Meter kit) dulaglutide 3 mg/0.5 mL 3 mg (0.5 mL) subcut QWEEK 28 days 09/01/22 subcutaneous pen injector #2 mL (Trulicity) insulin degludec 100 unit/mL (3 10 unit (0.1 mL) subcut BEDTIME 30 09/01/22 mL) subcutaneous pen (Tre #15 mL FlexTouch U-100 insulin) lancets 28 gauge (FreeStyle #100 ea 09/01/22 Lancets) metformin 500 mg tablet 1,000 mg PO BID 90 days #360 tabs 09/01/22 pen needle, diabetic 32 gauge x #50 ea 09/01/22 (BD Leonora 2nd Gen Pen Needle) Allergies Allergy/AdvReac Type Severity Reaction Status Date / Time lisinopril AdvReac Severe Angioedema Verified 06/11/22 09:59 Review of Systems Review of Systems: Constitutional : No Weight loss, No Fever, No Chills, No Night Sweats, No Fatigue, No Malaise ENT/Mouth : No Hearing loss, No Ear Pain, No Nasal Congestion, No Sinus Pain, No Hoarseness, No sore throat, No Rhinorrhea, No Swallowing Difficulty Eyes: No Eye Pain, No Swelling, No Redness, No Foreign Body, No Discharge, No Vision Changes Cardiovascular : No Chest Pain, No SOB, No Dyspnea on Exertion, No Orthopnea, No Edema, No Palpitations Respiratory : No Cough, No Sputum, No Wheezing, No Smoke Exposure, No Dyspnea Gastrointestinal : No Nausea, No Vomiting, No Diarrhea, No Constipation, No abdominal Pain, No Hematochezia, No Melena Genitourinary : no irregular bleeding, No Dysuria, No Urinary Frequency, No Hematuria, No Urinary Incontinence, No Urgency, No Flank Pain, No Urinary Flow Changes, No Hesitancy Musculoskeletal : No joint pain, No Myalgias, No Joint Swelling Skin : Complaining of abrasions and pain to the nose Neuro : No Weakness, No Numbness, No Paresthesias, No Loss of Consciousness, No Dizziness, No Headache Psych : No Anxiety/Panic, No Depression, No SI/HI/AH/VH, No Social Issues, Heme/Lymph: No Bruising, No Bleeding,No Lymphadenopathy Endocrine : No Polyuria, No Polydipsia, No Temperature Intolerance PMF Past Medical History Medical History Diabetes mellitus Diabetes type 2, uncontrolled Diabetic neuropathy associated with type 2 diabetes mellitus Hypertension Obesity (BMI 30-39.9) Obesity due to excess calories Surgical History History of circumcision History of lumbar surgery Family History Family History Father Diabetes Hypertension Heart disease Mother Diabetes Hypertension Heart disease Social History Social History Household Members: Significant Other Housing: House Alcohol intake: current Alcohol type: beer Patient Tobacco Use Status: Never used Tobacco e-Cigarette/Vaping Use: Never Used Second Hand Smoke Exposure: No Advance Directives: No Advance Directives Information Provided: Yes service: No Current occupational status: employed Cognitive needs: No Hearing needs: No Vision needs: No Physical Exam ED Vital Signs: Vital Signs - 24 hr 10/10/22 00:10 Temperature 97.2 F Pulse Rate 113 H Respiratory Rate 16 Blood Pressure 139/84 Pulse Oximetry 93 Oxygen Delivery Method Room Air BMI result Body Mass Index 32.1 Const Other: Appearance: Alert. Oriented X3. No acute distress. Eyes: Pupils equal, round and reactive to light. ENT: Pharynx normal. Epistaxis on the right nostril. Patient is missing a tooth in the front, being controlled Neck: On C-spine precautions, no palpable step-offs, no C-spine tenderness CVS: Normal heart rate and rhythm. Pulses normal. Normal S1 and S2 Respiratory: No respiratory distress. Breath sounds normal. No Wheezing. No rales Abdomen: Soft and nontender. No rigidity. No distention. Skin: Skin warm and dry. Multiple abrasions to the forehead and face Extremities: No lower extremity edema. No Lacerations. No Rash Neuro: Oriented X 3. No motor deficit. No sensory deficit. Moving all extremities. No slurred speech. CN 2 through 12 grossly intact Psych: calm, cooperative, normal affect Course Course Course Narrative: -CT scans of the head, neck, facial bones pending -all of the patient's labs are pending Medical Decision Making Medical Decision Making [facility] Narrative: -my interpretation of head CT: No intracranial bleed -I discussed with the patient that his CT scans of head face and cervical spine are negative. Patient only has superficial abrasions. -patient declined tramadol, requesting oxycodone -patient lost a tooth. Unfortunately, they were unable to find tooth Differential Diagnosis Differential Diagnoses: The differential diagnosis associated with the presentation includes Lab Data [facility] Lab Attestation statement: I reviewed the patient's lab results. 10/10/22 00:52 10/10/22 00:52 Labs: Lab Results 10/10/22 10/10/22 10/10/22 Range/Units 00:52 00:52 00:52 WBC 6.2 (4.8-10.8) X10*3/uL RBC 4.58 L (4.60-5.80) X10*6/uL Hgb 15.0 (14.0-18.0) g/dl Hct 44.9 (42.0-52.0) % MCV 98.0 (80.0-98.0) fL MCH 32.8 (27.0-33.0) pg MCHC 33.4 (31.0-36.0) g/dl RDW 13.3 (11.0-16.0) % Plt Count 123 L (160-400) X10*3/uL MPV 9.6 (9.4-12.4) fL Immature Gran % (Auto) 0.6 H (0.0-0.4) % Neut % (Auto) 72.4 (45-73) % Lymph % (Auto) 15.7 L (20-40) % Claiborne % (Auto) 7.8 (2-11) % Eos % (Auto) 2.4 (0-4) % Baso % (Auto) 1.1 (0-2) % Lymph # (Auto) 1.0 L (1.2-4.9) X10*3/uL Claiborne # (Auto) 0.5 (0.1-1.2) X10*3/uL Eos # (Auto) 0.2 (0.0-0.4) X10*3/uL Baso # (Auto) 0.1 (0.0-0.2) X10*3/uL Abs Immat Gran (auto) 0.04 H (0.00-0.03) X10*3/uL Absolute Neuts (auto) 4.5 (2.0-8.3) x10*3/uL Absolute Nucleated RBC 0.000 (0.0-0.012) X10*3/uL Nucleated RBC % (auto) 0.0 (0.0-0.2) /100WBC PT 13.1 (10.0-13.1) SEC INR 1.1 (0.9-1.1) Sodium 139 (135-145) mmol/L Potassium 3.8 (3.3-5.1) mmol/L Chloride 102 (96-108) mmol/L Carbon Dioxide 19 L (22-29) mmol/L Anion Gap 22 H (12-20) BUN 5 L (9-16) mg/dL Creatinine 0.80 (0.5-1.4) mg/dL Estim Creat Clear Calc 129.7 Estimated GFR > 60 Random Glucose 275 H (60-115) mg/dL Calcium 8.6 D (8.4-10.2) mg/dL Magnesium 1.9 (1.6-2.6) mg/dL Total Bilirubin 2.0 H (0.0-1.0) mg/dL Direct Bilirubin 0.9 H (0.0-0.5) mg/dL AST 182 H (5-37) U/L ALT 102 H (0-40) U/L Alkaline Phosphatase 226 H (39-117) U/L Troponin I High Sens (<3.5-35.0) ng/L Total Protein 7.9 (6.5-8.0) g/dL Albumin 3.6 (3.5-5.0) g/dL Ethyl Alcohol 291 mg/dL 10/10/22 Range/Units 00:52 WBC (4.8-10.8) X10*3/uL RBC (4.60-5.80) X10*6/uL Hgb (14.0-18.0) g/dl Hct (42.0-52.0) % MCV (80.0-98.0) fL MCH (27.0-33.0) pg MCHC (31.0-36.0) g/dl RDW (11.0-16.0) % Plt Count (160-400) X10*3/uL MPV (9.4-12.4) fL Immature Gran % (Auto) (0.0-0.4) % Neut % (Auto) (45-73) % Lymph % (Auto) (20-40) % Claiborne % (Auto) (2-11) % Eos % (Auto) (0-4) % Baso % (Auto) (0-2) % Lymph # (Auto) (1.2-4.9) X10*3/uL Claiborne # (Auto) (0.1-1.2) X10*3/uL Eos # (Auto) (0.0-0.4) X10*3/uL Baso # (Auto) (0.0-0.2) X10*3/uL Abs Immat Gran (auto) (0.00-0.03) X10*3/uL Absolute Neuts (auto) (2.0-8.3) x10*3/uL Absolute Nucleated RBC (0.0-0.012) X10*3/uL Nucleated RBC % (auto) (0.0-0.2) /100WBC PT (10.0-13.1) SEC INR (0.9-1.1) Sodium (135-145) mmol/L Potassium (3.3-5.1) mmol/L Chloride (96-108) mmol/L Carbon Dioxide (22-29) mmol/L Anion Gap (12-20) BUN (9-16) mg/dL Creatinine (0.5-1.4) mg/dL Estim Creat Clear Calc Estimated GFR Random Glucose (60-115) mg/dL Calcium (8.4-10.2) mg/dL Magnesium (1.6-2.6) mg/dL Total Bilirubin (0.0-1.0) mg/dL Direct Bilirubin (0.0-0.5) mg/dL AST (5-37) U/L ALT (0-40) U/L Alkaline Phosphatase (39-117) U/L Troponin I High Sens 3.1 (<3.5-35.0) ng/L Total Protein (6.5-8.0) g/dL Albumin (3.5-5.0) g/dL Ethyl Alcohol mg/dL Radiology Impression Discussion of test interpretation with radiology: I have reviewed the radiologist's reading. Radiologist Impression: FINDINGS: Head: There is no evidence of acute intracranial hemorrhage or territorial infarction. No abnormal mass effect or midline shift is seen. Alexander to white matter differentiation is well preserved. No extra-axial fluid collections are identified. No hydrocephalus. Proportional prominence of the ventricles and sulcal spaces is consistent with mild volume loss. Patchy periventricular and deep white matter hypoattenuation is consistent with mild small vessel ischemic changes. No acute soft tissue abnormality. No calvarial fracture. The mastoid air cells are well aerated. Maxillofacial: No acute maxillofacial fractures are seen. The pterygoid plates are intact. Lamina papyracea are intact. The zygomatic arches are intact. The nasal bone is intact. The mandible is intact. Diffuse paranasal sinus opacification. The infundibula and middle meati are occluded. The nasal septum is midline. The mandibular heads are well-seated in the condylar fossa. Degenerative changes at the left temporomandibular joint. Multiple dental caries present. The orbits demonstrate a normal appearance bilaterally. The globes are intact, and there are no suspicious findings to suggest retrobulbar hemorrhage. Cervical spine: There is anatomic alignment of the vertebral bodies and posterior elements. The atlantoaxial and atlantooccipital articulations are intact. Vertebral body heights are maintained. There is multilevel intervertebral disc space narrowing with endplate osteophyte formation and facet arthropathy. No evidence of acute fracture. No prevertebral soft tissue swelling. Visualized portions of the lung apices are unremarkable. The thyroid gland is unremarkable. CT/CT facial bones wo IV con IMPRESSION: 1.? No acute intracranial finding. 2.? No acute maxillofacial fracture. 3.? No acute fracture or malalignment of the cervical spine. Moderate degenerative changes. ? Medications Administered Discontinued Medications Generic Name Dose Route Start Last Admin Trade Name Freq PRN Reason Stop Dose Admin Acetaminophen 975 mg 10/10/22 01:58 10/10/22 02:01 Acetaminophen 325 Mg Tablet PO 10/10/22 01:59 975 mg ONCE ONE Administration Ondansetron HCl 4 mg 10/10/22 00:08 10/10/22 00:25 Ondansetron Odt 4 Mg Tab.Rapdis TRANSLINGU 10/10/22 00:09 4 mg ONCE ONE Administration Tramadol HCl 50 mg 10/10/22 01:19 10/10/22 01:58 Tramadol Hcl 50 Mg Tablet PO 10/10/22 01:20 Not Given ONCE ONE Discharge Plan Discharge Clinical Impression: Alcohol intoxication, Abrasion, Fall, Avulsed tooth Patient Disposition: Home, Self-Care Instructions: Alcohol Intoxication (ED), Abrasion (ED) Additional Instructions: Please follow-up with your primary care physician and with her dentist tomorrow. If you have any worsening or new symptoms, please return to the emergency room or call 911 Prescriptions: No Action citalopram 20 mg tablet 20 mg PO DAILY Qty: 90 8RF metoprolol tartrate 25 mg tablet 25 mg PO BID Qty: 180 8RF furosemide 20 mg tablet 20 mg PO DAILY Qty: 90 8RF levalbuterol tartrate [Xopenex HFA] 45 mcg/actuation HFA aerosol inhaler 2 puff inhalation Q4-6H PRN (Reason: shortness of breath or wheezing) Qty: 15 8RF glipizide 10 mg tablet 10 mg PO DAILY 90 Days Qty: 90 1RF Rx Instructions: One tablet before breakfast (DME) FreeStyle Lite Strips Strip See Rx Instructions .ROUTE .MEDSUPPLY Qty: 100 11RF Rx Instructions: 3 times a day, E11.65 (DME) blood-glucose meter [FreeStyle Lite Meter] Kit See Rx Instructions .ROUTE .MEDSUPPLY Qty: 1 0RF Rx Instructions: 3 times a day, E11.65 Trulicity 3 mg/0.5 mL pen injector 3 mg subcut QWEEK 28 Days Qty: 2 8RF Tresiba FlexTouch U-100 100 unit/mL (3 mL) insulin pen 10 unit subcut BEDTIME 30 Days Qty: 15 3RF (DME) lancets [FreeStyle Lancets] 28 gauge misc See Rx Instructions .ROUTE .MEDSUPPLY Qty: 100 6RF Rx Instructions: 3 times a day, E11.65 metformin 500 mg tablet 1,000 mg PO BID 90 Days Qty: 360 3RF (DME) pen needle, diabetic [BD Leonora 2nd Gen Pen Needle] 32 gauge x 5/32 needle See Rx Instructions .ROUTE .MEDSUPPLY Qty: 50 4RF Rx Instructions: once a day diphenhydramine HCl [Benadryl] 25 mg capsule 25 mg PO BEDTIME Qty: 4 0RF Rx Instructions: start 01/11/21 famotidine [Pepcid] 20 mg tablet 20 mg PO DAILY Qty: 4 0RF olanzapine 10 mg tablet 10 mg PO BEDTIME sertraline 100 mg tablet 100 mg PO DAILY zolpidem 10 mg tablet 10 mg PO BEDTIME PRN atorvastatin 10 mg tablet 10 mg PO BEDTIME Qty: 30 11RF
[2022-10-10 00:10] VITALS: BP 139/84; PULSE 113; RESP 16; TEMP 36.2; O2SAT 93; BMI 32.1
[2022-10-10] MEDS: Ondansetron ODT 4 MG TAB.RAPDIS TRANSLINGU (00:25)
--- NOTE | 2022-10-10 00:36 | PC.NURSE ---
Pt removed C-Collar by himself and refuses to put it back on.
[2022-10-10 00:58] LABS: Imm Gran Abs Auto 0.04 X10*3/uL (0.00-0.03); Imm Gran Pct Auto 0.6 % (0.0-0.4); Monocytes Percent Auto 7.8 % (2-11); PLT CLUMP 1; SCAN SMEAR FLAG 1
[2022-10-10 00:59] LABS: Basophils Absolute Auto 0.1 X10*3/uL (0.0-0.2); Basophils Percent Auto 1.1 % (0-2); Eosinophils Absolute Auto 0.2 X10*3/uL (0.0-0.4); Eosinophils Percent Auto 2.4 % (0-4); Hematocrit 44.9 % (42.0-52.0); Lymphocytes Percent Auto 15.7 % (20-40); Mean Corpuscular HGB Conc 33.4 g/dl (31.0-36.0); Mean Corpuscular Hemoglobin 32.8 pg (27.0-33.0); Mean Platelet Volume 9.6 fL (9.4-12.4); Monocytes Absolute Auto 0.5 X10*3/uL (0.1-1.2); Neutrophils Absolute Auto 4.5 x10*3/uL (2.0-8.3); Neutrophils Percent Auto 72.4 % (45-73); Red Blood Count 4.58 X10*6/uL (4.60-5.80); Red Cell Distribution Width 13.3 % (11.0-16.0)
--- NOTE | 2022-10-10 00:59 | MHC.EDTECH ---
pt came in via [facility] ,pt vitals sign taken ,pt clothing was covered in vomit and lg amount blood, of pt face ,pt arrived ,and gave me permission to cut t- shirt off ,lynne alejandra removed ,pt has money in his pocket ,i asked pct doyle to help me to count the money ,both patient and pt said no need to count money ,pt said he give his permission to take money home ,pt was clean up including blood on pt face ,ekg taken and was read by Provider ,blood drawn and send to lab ,pt remain at bed side .
[2022-10-10 01:01] LABS: Platelet Count 123 X10*3/uL (160-400); White Blood Count 6.2 X10*3/uL (4.8-10.8)
[2022-10-10 01:02] LABS: MANUAL DIFF FLAG NO
[2022-10-10 01:08] LABS: INTERNATIONAL NORM RATIO 1.1 (0.9-1.1); Prothrombin Time 13.1 SEC (10.0-13.1)
[2022-10-10 01:13] LABS: Alanine Aminotransferase 102 U/L (0-40); Albumin Level 3.6 g/dL (3.5-5.0); Alkaline Phosphatase 226 U/L (39-117); Anion Gap 22 (12-20); Aspartate Amino Transferase 182 U/L (5-37); Bilirubin Direct 0.9 mg/dL (0.0-0.5); Blood Urea Nitrogen 5 mg/dL (9-16); Calcium 8.6 mg/dL (8.4-10.2); Carbon Dioxide 19 mmol/L (22-29); Chloride 102 mmol/L (96-108); Creatinine Clr Calc Pharmacy 129.7; Estimated Glomerular Filt Rate > 60; Ethanol 291 mg/dL; Glucose Random 275 mg/dL (60-115); Magnesium 1.9 mg/dL (1.6-2.6); Potassium 3.8 mmol/L (3.3-5.1); Sodium 139 mmol/L (135-145); Total Protein 7.9 g/dL (6.5-8.0)
[2022-10-10 01:17] LABS: Troponin-I High Sensitivity 3.1 ng/L (<3.5-35.0)
--- NOTE | 2022-10-10 01:45 | PC.NURSE ---
Pt stated tramadol upsets his stomach, requested oxycodone. Informed Dr Andrew who stated pt can have tylenol.
[2022-10-10] MEDS: Acetaminophen 325 MG TABLET 975 MG PO (02:01)
[2022-10-10 02:47] VITALS: BP 132/80; PULSE 100; RESP 16; TEMP 36.6; O2SAT 97
[2022-10-10] MEDS: oxyCODONE HCl Immed Release 5 MG TABLET PO (02:47)
== END 2022-10-10 02:52 | disposition home or self-care (01) ==
PROVIDERS: Emergency Provider Emergency Medicine
DX: S00.81XA Abrasion of other part of head, initial encounter (principal); S03.2XXA Dislocation of tooth, initial encounter; W01.198A Fall on same level from slipping, tripping and stumbling with subsequent striking against other object, initial encounter; F10.920 Alcohol use, unspecified with intoxication, uncomplicated; Y90.8 Blood alcohol level of 240 mg/100 ml or more; R04.0 Epistaxis; I10 Essential (primary) hypertension; E11.9 Type 2 diabetes mellitus without complications; E78.5 Hyperlipidemia, unspecified; Y93.89 Activity, other specified; Y92.414 Local residential or business street as the place of occurrence of the external cause; Y99.9 Unspecified external cause status; Z79.4 Long term (current) use of insulin; Z79.02 Long term (current) use of antithrombotics/antiplatelets; Z79.899 Other long term (current) drug therapy
CPT/HCPCS: 36415; 70450; 70486; 72125; 80048; 80076; 82077; 83735; 84484; 85025; 85610; 93005; 99284; 99285

== ENCOUNTER 2022-12-27 08:46 | Emergency (ER) | payer MEDICARE, MEDICAID, SELFPAY ==
[2022-12-27 08:59] VITALS: BP 139/88; PULSE 103; RESP 17; TEMP 36.6; O2SAT 93; BMI 37.2
--- NOTE | 2022-12-27 09:29 | ED.ALLEREA ---
HPI - Allergic Reaction General Chief complaint: Allergic Reaction Stated complaint: allergic reaction? Time Seen by Provider: 12/27/22 09:12 Source: patient Mode of arrival: ambulatory Limitations: no limitations History of Present Illness HPI narrative: patient is a 52 old male presents emergency department for evaluation of swelling to his lower lip and bilateral eyes. States that he awoke at 07:00 this morning with this swelling. He states that last night he did take Advil for headache, although it is not uncommon for him to take Advil. He reports a history of angioedema to lisinopril 2 years ago, he denies taking this medication any longer. He denies any other new medications or new foods. Additionally denies any new detergents soaps or facial products. He denies any chest pain, shortness of breath, difficulty breathing. Related Data Home Medications Medication Instructions Recorded Confirmed olanzapine 10 mg tablet 10 mg PO BEDTIME 04/17/20 06/11/22 zolpidem 10 mg tablet 10 mg PO BEDTIME PRN 03/10/21 06/11/22 sertraline 100 mg tablet 100 mg PO DAILY 06/11/22 06/11/22 Previous Rx's Medication Instructions Recorded citalopram 20 mg tablet 20 mg PO DAILY #90 tabs 04/19/20 furosemide 20 mg tablet 20 mg PO DAILY #90 tabs 04/19/20 levalbuterol tartrate 45 2 puff inhalation Q4-6H PRN 04/19/20 mcg/actuation aerosol inhaler shortness of breath or wheezing (Xopenex HFA) #15 grams metoprolol tartrate 25 mg tablet 25 mg PO BID #180 tabs 04/19/20 diphenhydramine HCl 25 mg capsule 25 mg PO BEDTIME #4 caps 01/10/21 (Benadryl) famotidine 20 mg tablet (Pepcid) 20 mg PO DAILY #4 tabs 01/10/21 glipizide 10 mg tablet 10 mg PO DAILY 90 days #90 tabs 08/22/21 atorvastatin 10 mg tablet 10 mg PO BEDTIME #30 tabs 10/13/21 blood sugar diagnostic (FreeStyle #100 ea 09/01/22 Lite Strips) blood-glucose meter (FreeStyle #1 ea 09/01/22 Lite Meter kit) dulaglutide 3 mg/0.5 mL 3 mg (0.5 mL) subcut QWEEK 28 days 09/01/22 subcutaneous pen injector #2 mL (Trulicity) insulin degludec 100 unit/mL (3 10 unit (0.1 mL) subcut BEDTIME 30 09/01/22 mL) subcutaneous pen (Tresi days #15 mL FlexTouch U-100 insulin) lancets 28 gauge (FreeStyle #100 ea 09/01/22 Lancets) metformin 500 mg tablet 1,000 mg PO BID 90 days #360 tabs 09/01/22 pen needle, diabetic 32 gauge x #50 ea 09/01/22 (BD Leonora 2nd Gen Pen Needle) diphenhydramine HCl 25 mg capsule 25 mg PO BEDTIME #4 caps 12/27/22 famotidine 20 mg tablet (Pepcid) 20 mg PO DAILY #4 tabs 12/27/22 prednisone 50 mg tablet 50 mg PO DAILY #4 tabs 12/27/22 Allergies Allergy/AdvReac Type Severity Reaction Status Date / Time lisinopril AdvReac Severe Angioedema Verified 06/11/22 09:59 Review of Systems Review of Systems: Constitutional: No fever, chills, weakness or fatigue. Skin: No rash or itching. Cardiovascular: No chest pain, chest pressure or chest discomfort. No palpitations or pedal edema. Respiratory: No shortness of breath, cough or sputum production. Gastrointestinal: No anorexia, nausea, vomiting or diarrhea. No abdominal pain o Genitourinary: No burning micturition. No urinary frequency or incontinence. Musculoskeletal: No muscle pain, back pain, joint pain or stiffness. Psychiatric: No depression or anxiety. Yes all other systems are reviewed and are negative REPLACED BY [facility] Past Medical History Attestation statement: The following information was validated with the patient. Source: old records reviewed Medical History Diabetes mellitus Diabetes type 2, uncontrolled Diabetic neuropathy associated with type 2 diabetes mellitus Hypertension Obesity (BMI 30-39.9) Obesity due to excess calories Surgical History History of circumcision History of lumbar surgery Family History Family History Father Diabetes Hypertension Heart disease Mother Diabetes Hypertension Heart disease Social History Social History Household Members: Significant Other Housing: House Alcohol intake: current Alcohol type: beer Patient Tobacco Use Status: Never used Tobacco e-Cigarette/Vaping Use: Never Used Second Hand Smoke Exposure: No Advance Directives: No Advance Directives Information Provided: Yes service: No Current occupational status: employed Cognitive needs: No Hearing needs: No Vision needs: No Physical Exam ED Vital Signs: Vital Signs - 24 hr 12/27/22 08:59 12/27/22 11:31 Temperature 97.8 F 97.4 F Pulse Rate 103 H 90 Respiratory Rate 17 15 Blood Pressure 139/88 144/89 H Pulse Oximetry 93 96 Oxygen Delivery Method Room Air Room Air BMI result Body Mass Index 37.2 Appearance: Alert.?Oriented to person, place and time. No acute distress.?Normal affect. Eyes: Pupils equal, round and reactive to light.? EOMI. No nystagmus. ENT: Pharynx normal.?? Uvula midline. No trismus. No drooling. swelling to the lower lip and mild swelling to the bilateral periorbital region Neck: Normal inspection.? Neck supple.?? no cervical lymphadenopathy CVS: Heart sounds normal. Normal heart rate and rhythm.? Pulses normal.?? Respiratory: No respiratory distress.? Lung sounds with mild rhonchi bilaterally? Abdomen: Soft and non-tender. Normoactive bowel sounds. ?? Skin: Skin warm and dry.? Normal skin color.? Extremities: No lower extremity edema.? Neuro: Moves all extremities spontaneously. Sensation intact bilaterally. No focal neuro deficits. Ambulates with normal steady gait. Course Reevaluation(s) Reevaluation #1: CBC is overall unremarkable, chronic thrombocytopenia. CMP revealing elevated LFTs and bilirubin, with overall improvement when compared to prior labs in September of 2022, his abdominal examination is benign, low suspicion for acute hepatic or biliary process at this time, may be in part due to patient's alcohol consumption, he was made aware of these findings and advised to follow-up with his primary care provider/potential referral for Gastroenterology. Patient received Solu-Medrol, Benadryl, and Pepcid with good effect, no longer with swelling to the bilateral orbits. Significant decrease in swelling to the lower lip. Remains without airway compromise. Speaking clear full sentences. At this time he is stable for discharge. Discussed worrisome signs and symptoms that would warrant re-evaluation in the emergency department, strict return precautions. All questions answered. Time: 12:04 Medications Administered Discontinued Medications Generic Name Dose Route Start Last Admin Trade Name Allie PRN Reason Stop Dose Admin Diphenhydramine HCl 50 mg 12/27/22 09:28 12/27/22 10:16 Diphenhydramine Hcl 50 Mg/Ml Vial IVPUSH 12/27/22 09:29 50 mg ONCE ONE Administration Famotidine 20 mg 12/27/22 09:28 12/27/22 10:15 Famotidine/Pf 20 Mg/2 Ml Vial IVPUSH 12/27/22 09:29 20 mg ONCE ONE Administration Methylprednisolone Sodium Succinate 80 mg 12/27/22 09:28 12/27/22 10:12 Methylprednisolone Sod Succ 125 Mg/2 Ml Vial IVPUSH 12/27/22 09:29 80 mg ONCE ONE Administration Medical Decision Making Medical Decision Making [facility] Narrative: Patient is a 52 old male presents emergency department for evaluation of facial swelling as per HPI. At the time of my examination he is not in any apparent distress. Patient was seen in the emergency department December of 2020 with angioedema after having recently started lisinopril. At that time he received Solu-Medrol Pepcid and Benadryl in his swelling had resolved. He confirms that he has not been taking lisinopril nor any other Nayan/Arb. given that he did take Advil last night, this may be angioedema in response to NSAID, vs allergic reaction to food, environmental exposure to allergen, idiopathic. there is no posterior pharyngeal edema, no respiratory compromise. Speaking clear full sentences. O2 saturation of 93%, which she states is typical for him due to his history of asthma and emphysema. Differential Diagnosis Differential Diagnoses: The differential diagnosis associated with the presentation includes ( As noted above) Lab Data 12/27/22 10:08 12/27/22 10:08 Labs: Lab Results 12/27/22 12/27/22 Range/Units 10:08 10:08 WBC 4.3 L (4.8-10.8) X10*3/uL RBC 4.71 (4.60-5.80) X10*6/uL Hgb 14.9 (14.0-18.0) g/dl Hct 45.2 (42.0-52.0) % MCV 96.0 (80.0-98.0) fL MCH 31.6 (27.0-33.0) pg MCHC 33.0 (31.0-36.0) g/dl RDW 13.1 (11.0-16.0) % Plt Count 101 L (160-400) X10*3/uL MPV 9.8 (9.4-12.4) fL Immature Gran % (Auto) 0.2 (0.0-0.4) % Neut % (Auto) 68.3 (45-73) % Lymph % (Auto) 17.5 L (20-40) % Hart % (Auto) 10.5 (2-11) % Eos % (Auto) 2.6 (0-4) % Baso % (Auto) 0.9 (0-2) % Lymph # (Auto) 0.8 L (1.2-4.9) X10*3/uL Hart # (Auto) 0.5 (0.1-1.2) X10*3/uL Eos # (Auto) 0.1 (0.0-0.4) X10*3/uL Baso # (Auto) 0.0 (0.0-0.2) X10*3/uL Abs Immat Gran (auto) 0.01 (0.00-0.03) X10*3/uL Absolute Neuts (auto) 2.9 (2.0-8.3) x10*3/uL Absolute Nucleated RBC 0.000 (0.0-0.012) X10*3/uL Nucleated RBC % (auto) 0.0 (0.0-0.2) /100WBC Sodium 135 (135-145) mmol/L Potassium 4.0 (3.3-5.1) mmol/L Chloride 100 (96-108) mmol/L Carbon Dioxide 24 (22-29) mmol/L Anion Gap 15 (12-20) BUN 8 L (9-16) mg/dL Creatinine 0.74 (0.5-1.4) mg/dL Estim Creat Clear Calc 137.9 Estimated GFR > 60 Random Glucose 175 H (60-115) mg/dL Calcium 9.3 D (8.4-10.2) mg/dL Total Bilirubin 2.2 H (0.0-1.0) mg/dL AST 129 H (5-37) U/L ALT 66 H (0-40) U/L Alkaline Phosphatase 208 H (39-117) U/L Total Protein 7.9 (6.5-8.0) g/dL Albumin 3.2 L (3.5-5.0) g/dL Discharge Plan Discharge Clinical Impression: Angioedema Patient Disposition: Home, Self-Care Instructions: Angioedema (ED) Additional Instructions: As we discussed angioedema can occur in response to a class of medications called NSAIDs, which includes Advil. Although you have taken this in the past without having this type of reaction it can occur at any time. At this time I suggest that you stop using NSAIDs for any pain that you may have. Please follow-up with your primary care provider. I have sent a prescription for prednisone, Benadryl, and Pepcid to your pharmacy please take these accordingly for the next 4 days. Return back to emergency department any new or worsening symptoms or concerns. Prescriptions: New diphenhydramine HCl 25 mg capsule 25 mg PO BEDTIME Qty: 4 0RF prednisone 50 mg tablet 50 mg PO DAILY Qty: 4 0RF famotidine [Pepcid] 20 mg tablet 20 mg PO DAILY Qty: 4 0RF No Action citalopram 20 mg tablet 20 mg PO DAILY Qty: 90 8RF metoprolol tartrate 25 mg tablet 25 mg PO BID Qty: 180 8RF furosemide 20 mg tablet 20 mg PO DAILY Qty: 90 8RF levalbuterol tartrate [Xopenex HFA] 45 mcg/actuation HFA aerosol inhaler 2 puff inhalation Q4-6H PRN (Reason: shortness of breath or wheezing) Qty: 15 8RF glipizide 10 mg tablet 10 mg PO DAILY 90 Days Qty: 90 1RF Rx Instructions: One tablet before breakfast (DME) FreeStyle Lite Strips Strip See Rx Instructions .ROUTE .MEDSUPPLY Qty: 100 11RF Rx Instructions: 3 times a day, E11.65 (DME) blood-glucose meter [FreeStyle Lite Meter] Kit See Rx Instructions .ROUTE .MEDSUPPLY Qty: 1 0RF Rx Instructions: 3 times a day, E11.65 Trulicity 3 mg/0.5 mL pen injector 3 mg subcut QWEEK 28 Days Qty: 2 8RF Tresiba FlexTouch U-100 100 unit/mL (3 mL) insulin pen 10 unit subcut BEDTIME 30 Days Qty: 15 3RF (DME) lancets [FreeStyle Lancets] 28 gauge misc See Rx Instructions .ROUTE .MEDSUPPLY Qty: 100 6RF Rx Instructions: 3 times a day, E11.65 metformin 500 mg tablet 1,000 mg PO BID 90 Days Qty: 360 3RF (DME) pen needle, diabetic [BD Leonora 2nd Gen Pen Needle] 32 gauge x 5/32 needle See Rx Instructions .ROUTE .MEDSUPPLY Qty: 50 4RF Rx Instructions: once a day diphenhydramine HCl [Benadryl] 25 mg capsule 25 mg PO BEDTIME Qty: 4 0RF Rx Instructions: start 01/11/21 famotidine [Pepcid] 20 mg tablet 20 mg PO DAILY Qty: 4 0RF olanzapine 10 mg tablet 10 mg PO BEDTIME sertraline 100 mg tablet 100 mg PO DAILY zolpidem 10 mg tablet 10 mg PO BEDTIME PRN atorvastatin 10 mg tablet 10 mg PO BEDTIME Qty: 30 11RF Referrals: John Teran MD [Primary Care Provider] -
[2022-12-27] MEDS: methylPREDNISolone Sod Succ 125 MG/2 ML VIAL 80 MG IVPUSH (10:12)
[2022-12-27 10:13] LABS: Basophils Percent Auto 0.9 % (0-2); Hematocrit 45.2 % (42.0-52.0); Hemoglobin 14.9 g/dl (14.0-18.0); Imm Gran Abs Auto 0.01 X10*3/uL (0.00-0.03); Imm Gran Pct Auto 0.2 % (0.0-0.4); MANUAL DIFF FLAG NO; Mean Corpuscular Hemoglobin 31.6 pg (27.0-33.0); PLT CLUMP 1; Red Blood Count 4.71 X10*6/uL (4.60-5.80); SCAN SMEAR FLAG 1
[2022-12-27 10:15] LABS: Eosinophils Absolute Auto 0.1 X10*3/uL (0.0-0.4); Eosinophils Percent Auto 2.6 % (0-4); Lymphocytes Absolute Auto 0.8 X10*3/uL (1.2-4.9); Lymphocytes Percent Auto 17.5 % (20-40); Mean Platelet Volume 9.8 fL (9.4-12.4); Monocytes Absolute Auto 0.5 X10*3/uL (0.1-1.2); Monocytes Percent Auto 10.5 % (2-11); Neutrophils Absolute Auto 2.9 x10*3/uL (2.0-8.3); Neutrophils Percent Auto 68.3 % (45-73); Red Cell Distribution Width 13.1 % (11.0-16.0)
[2022-12-27] MEDS: Famotidine/PF 20 MG/2 ML VIAL IVPUSH (10:15)
[2022-12-27] MEDS: diphenhydrAMINE HCL 50 MG/ML VIAL IVPUSH (10:16)
[2022-12-27 10:19] LABS: Platelet Count 101 X10*3/uL (160-400); White Blood Count 4.3 X10*3/uL (4.8-10.8)
[2022-12-27 10:29] LABS: Alanine Aminotransferase 66 U/L (0-40); Albumin Level 3.2 g/dL (3.5-5.0); Alkaline Phosphatase 208 U/L (39-117); Anion Gap 15 (12-20); Aspartate Amino Transferase 129 U/L (5-37); Bilirubin Total 2.2 mg/dL (0.0-1.0); Blood Urea Nitrogen 8 mg/dL (9-16); Calcium 9.3 mg/dL (8.4-10.2); Carbon Dioxide 24 mmol/L (22-29); Chloride 100 mmol/L (96-108); Creatinine Clr Calc Pharmacy 137.9; Estimated Glomerular Filt Rate > 60; Glucose Random 175 mg/dL (60-115); Sodium 135 mmol/L (135-145); Total Protein 7.9 g/dL (6.5-8.0)
[2022-12-27 11:31] VITALS: BP 144/89; PULSE 90; RESP 15; TEMP 36.3; O2SAT 96
== END 2022-12-27 12:33 | disposition home or self-care (01) ==
PROVIDERS: Nurse Practitioner Family; Emergency Provider Student in an Organized Health Care Education/Training Program; PCP Internal Medicine
DX: L50.0 Allergic urticaria (principal); Z79.899 Other long term (current) drug therapy
CPT/HCPCS: 36415; 80053; 85025; 96374; 96375; 99284; J1200; J2930

== ENCOUNTER 2023-01-26 11:13 | Outpatient (AMB) | payer MEDICARE, MEDICAID, SELFPAY ==
--- NOTE | 2023-01-26 11:16 | A.OFFPC_ITS ---
Vital Signs 01/26/23 11:18 Height 5 ft 8 in Weight 240 lb 8 oz BMI 36.6 BP 124/64 Blood Pressure Location Lt brachial Position Sitting Pulse 93 Pulse Source Pulse Oximeter Pulse Oximetry (%) 95 Oxygen Delivery Method Room Air Intake Visit Reasons: medication Follow Up Intake Note: Patient is here to follow up on medication review. 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 Required: No Blade Sharpener: Not Required per policy Accompanied by: Self / Same As Patient Allergies lisinopril Adverse Reaction (Severe, Verified 01/26/23 11:18) Angioedema Medication List - Last Reconciled 01/26/23 by John Teran MD atorvastatin 10 mg PO BEDTIME blood sugar diagnostic (FreeStyle Lite Strips) 3 times a day, E11.65 blood-glucose meter (FreeStyle Lite Meter kit) 3 times a day, E11.65 citalopram 20 mg PO DAILY dulaglutide (Trulicity) 3 mg (0.5 mL) subcut QWEEK 28 days famotidine (Pepcid) 20 mg PO DAILY furosemide 20 mg PO DAILY glipizide 10 mg PO DAILY 90 days insulin degludec (Tresiba FlexTouch U-100 insulin) 10 units (0.1 mL) subcut BEDTIME 30 days lancets (FreeStyle Lancets) 3 times a day, E11.65 levalbuterol tartrate 45 mcg/actuation (Xopenex HFA) 2 puffs inhalation Q4-6H PRN metformin 1,000 mg (2 x 500 mg) PO BID 90 days metoprolol tartrate 25 mg PO BID pen needle, diabetic (BD Leonora 2nd Gen Pen Needle) once a day sertraline 100 mg PO DAILY zolpidem 10 mg PO BEDTIME PRN Tobacco use date assessed: 01/26/23 Dental Screening Dental Screen Date: 01/26/23 Did you have a dental visit in the last 12 months?: No Did you have a dental problem in the last 6 months where you did not have access to dental care?: No Was dental information given to patient?: No HPI medication Follow Up HPI Details hyperlipidemia on rx; due for labs; compliant [facility] Medical History Diabetes mellitus Diabetes type 2, uncontrolled Diabetic neuropathy associated with type 2 diabetes mellitus Hypertension Obesity (BMI 30-39.9) Obesity due to excess calories Surgical History History of circumcision History of lumbar surgery Family History (Updated 01/26/23 @ 11:17 by FATEMEH Urrutia) Father Diabetes Hypertension Heart disease Mother Diabetes Hypertension Heart disease Social History Household Members: Significant Other Housing: House Alcohol intake: current Alcohol type: beer Patient Tobacco Use Status: Never used Tobacco e-Cigarette/Vaping Use: Never Used Second Hand Smoke Exposure: No service: No Current occupational status: employed Cognitive needs: No Hearing needs: No Vision needs: No Questionnaire PHQ-9 Over the last 2 weeks, how often have you been bothered by any of the following problems? 1. Little interest or pleasure in doing things: not at all 2. Feeling down, depressed, or hopeless: not at all (currently on medication) 3. Trouble falling or staying asleep, or sleeping too much: not at all 4. Feeling tired or having little energy: not at all 5. Poor appetite or overeating: not at all 6. Feeling bad about yourself - or that you are a failure or have let yourself or your family down: not at all 7. Trouble concentrating on things, such as reading the newspaper or watching television: not at all 8. Moving or speaking so slowly that other people could have noticed. Or the opposite - being so fidgety or restless that you have been moving around a lot more than usual: not at all 9. Thoughts that you would be better off or of hurting yourself in some way: not at all Total score: 0 Depression Screening Interpretation: Negative Source: Developed by Drs. Joel Jacob, Tricia Drake, Brian Beavers and colleagues, with an educational ayad from [employer]. Thrive Questionnaire Date Thrive assessed: 01/26/23 I am a: Patient What is your living situation today?: I have a steady place to live Within the past 12 months, did the food you bought not last and you didn't have the money to get more?: Never true Within the past 12 months, did you worry whether your food would run out before you got money to buy more?: Never true Do you have trouble paying for medicines?: No Do you have trouble getting transportation to medical appointments?: No Do you have trouble paying your heating and electricity bill?: No Do you have trouble taking care of your child, family member or friend?: No Do you have trouble with day-to-day activities such as bathing, preparing meals, shopping, managing finances, etc.?: No Are you currently unemployed and looking for a job?: No Are you interested in more education?: No Currently or been in a relationship where the following occur: no concerns reported AUDIT C Alcohol Use Questionnaire (AUDIT-C) 1. How often do you have a drink containing alcohol?: Monthly or less 2. How many drinks containing alcohol do you have on a typical day when you are drinking?: 1 or 2 Total Score: 1 SHAHLA-7 AMB Questionnaire SHAHLA-7 Date SHAHLA - 7 assessed: 01/26/23 Feeling nervous, anxious, or on edge: 0 = Not at all (currently on medication) Not being able to stop or control worryin = Not at all Worrying too much about different things: 0 = Not at all Trouble relaxin = Not at all Being so restless that it is hard to sit still: 0 = Not at all Becoming easily annoyed or irritable: 0 = Not at all Feeling afraid as if something awful might happen: 0 = Not at all Total SHAHLA-7 score (0-4 normal; 5-9 mild; 10-14 moderate; 15-21 severe): 0 Source: Developed by Drs. Joel Jacob, Tricia Drake, Brian Beavers and colleagues, with an educational ayad from [employer]. Review of Systems Const Denies chills, Denies headache(s) and Denies weight loss ENT Denies headache(s) Card Denies chest pain, Denies syncope, Denies irregular heart rhythm and Denies dyspnea Resp Denies chest congestion, Denies cough and Denies dyspnea GI Denies abdominal pain, Denies change in stool character, Denies nausea and Denies vomiting Musc Denies deformity and Denies joint swelling Neuro Denies syncope and Denies headache(s) Physical exam (Primary Care) Vital Signs: Last Vital Signs Pulse 93 01/26/23 11:18 BP 124/64 01/26/23 11:18 Pulse Ox 95 01/26/23 11:18 Oxygen Delivery Method Room Air 01/26/23 11:18 BMI result Body Mass Index 36.6 Tobacco/Smoking Status: Tobacco use Status Tobacco use date assessed 01/26/23 01/26/23 11:25 Patient Tobacco Use Status Never used Tobacco 01/26/23 11:25 e-Cigarette/Vaping Use Never Used 01/26/23 11:25 PHQ-9: PHQ-9 Score PHQ-9: Total score 0 01/26/23 11:25 Depression Screening Interpretation: Negative Thrive Assessment: Date of Thrive Assessment Date Thrive assessed 01/26/23 01/26/23 11:25 Currently or been in a relationship where the following occur: no concerns reported Const General: cooperative, healthy appearing and no acute distress Orientation/consciousness: oriented to person, oriented to place and oriented to time HENMT Head: Yes normal to inspection, Yes normocephalic and Yes atraumatic Mouth: Normal oral and palatal mucosa present and tongue normal Throat: Yes posterior oropharynx normal and Yes uvula midline Eyes General: appearance normal, both eyes and all related structures Neck Neck: Yes normal visual inspection, Yes full ROM and Yes no lymphadenopathy Thyroid: Thyroid normal Carotids: normal carotid upstroke Chest Chest palpation & inspection: normal inspection of the chest Resp Effort & Inspection: normal respiratory effort and able to speak in complete sentences Auscultation: clear to auscultation bilaterally Cardio Jugular venous distension: no JVD Palpation: normal PMI Rate: regular rate Rhythm: regular rhythm Heart sounds: S1 normal heart sound present and S2 normal heart sound present GI Inspection: Yes normal to inspection Palpation (GI): Soft to palpation and No hepatosplenomegaly present Auscultation: normal bowel sounds General: Yes no CVA tenderness Back/Spine/Pelvis Back: no CVA tenderness Skin General skin exam: no rashes or lesions noted Neuro General: oriented to person, oriented to place and oriented to time Extrem General: Yes normal to inspection and Yes full ROM Assessment and Plan Assessment & Plan (1) Hyperlipidemia: Code(s): E78.5 - Hyperlipidemia, unspecified Plan: stable; same rx Orders: Orders Comprehensive [place]. Panel Fast Today N28.9 - Disorder of kidney and ureter, unspecified Hemoglobin A1c Today R73.9 - Hyperglycemia, unspecified Lipid Panel Today E78.5 - Hyperlipidemia, unspecified Medications: Refilled famotidine (Pepcid) 20 mg PO DAILY 4 tabs 0RF furosemide 20 mg PO DAILY 90 tabs 8RF glipizide One tablet before breakfast 10 mg PO DAILY 90 tabs 1RF 90 days E11.65 - Type 2 diabetes mellitus with hyperglycemia insulin degludec (Tresiba FlexTouch U-100 insulin) 10 units (0.1 mL) subcut BEDTIME 15 mL 3RF 30 days E11.65 - Type 2 diabetes mellitus with hyperglycemia levalbuterol tartrate 45 mcg/actuation (Xopenex HFA) 2 puffs inhalation Q4-6H PRN 15 grams 8RF shortness of breath or wheezing metoprolol tartrate 25 mg PO BID 180 tabs 8RF Coding Level of Care Code Est Pt Level 3 (27883) Diagnoses Hyperlipidemia E78.5
[2023-01-26 11:18] VITALS: BP 124/64; PULSE 93; O2SAT 95; BMI 36.6
== END 2023-01-26 11:34 | disposition home or self-care (01) ==
PROVIDERS: PCP Internal Medicine; Visit Provider Internal Medicine
DX: E78.5 Hyperlipidemia, unspecified (principal)
CPT/HCPCS: 99213

== ENCOUNTER 2023-04-28 09:57 | Outpatient (REF) | payer MEDICARE, MEDICAID, SELFPAY ==
[2023-04-28 10:59] LABS: Estimated Average Glucose 131 mg/dL; Hemoglobin A1c % 6.2 % (<6.0)
[2023-04-28 11:22] LABS: Alanine Aminotransferase 44 U/L (0-40); Alkaline Phosphatase 211 U/L (39-117); Anion Gap 14 (12-20); Aspartate Amino Transferase 109 U/L (5-37); Bilirubin Total 2.6 mg/dL (0.0-1.0); Blood Urea Nitrogen 8 mg/dL (9-16); Calcium 8.9 mg/dL (8.4-10.2); Carbon Dioxide 25 mmol/L (22-29); Chloride 101 mmol/L (96-108); Cholesterol 146 mg/dL (<200); Estimated Glomerular Filt Rate > 60; Glucose Fasting 186 mg/dL (60-99); HDL Cholesterol 63 mg/dL (>40); LDL Cholesterol Calculated 70 mg/dL (<100); Potassium 3.9 mmol/L (3.3-5.1); Sodium 136 mmol/L (135-145); Total Protein 8.2 g/dL (6.5-8.0); Triglycerides 66 mg/dL (<150)
== END 2023-04-28 09:58 | disposition home or self-care (01) ==
LOC: HO.LAB 09:57
PROVIDERS: PCP Internal Medicine; Visit Provider Internal Medicine
DX: N28.9 Disorder of kidney and ureter, unspecified (principal); R73.9 Hyperglycemia, unspecified; E78.5 Hyperlipidemia, unspecified
CPT/HCPCS: 36415; 80053; 80061; 83036

== ENCOUNTER 2023-05-11 11:07 | Outpatient (AMB) | payer MEDICARE, MEDICAID, SELFPAY ==
[2023-05-11 11:08] VITALS: BP 144/80; PULSE 105; O2SAT 96; BMI 37.1
--- NOTE | 2023-05-11 11:08 | MHC.PC.OV ---
Vital Signs 05/11/23 11:08 Height 5 ft 8 in Weight 244 lb BMI 37.1 BP 144/80 H Blood Pressure Location Lt brachial Position Sitting Pulse 105 H Pulse Source Pulse Oximeter Pulse Oximetry (%) 96 Oxygen Delivery Method Room Air Intake Visit Reasons: 3 month f/u Zoo Caretaker Required: No Truck Driver Flatbed: Not Required per policy Accompanied by: Self / Same As Patient Allergies lisinopril Adverse Reaction (Severe, Verified 05/11/23 11:09) Angioedema Medication List - Last Reconciled 05/11/23 by John Teran MD atorvastatin 10 mg PO BEDTIME blood sugar diagnostic (FreeStyle Lite Strips) 3 times a day, E11.65 blood-glucose meter (FreeStyle Lite Meter kit) 3 times a day, E11.65 citalopram 20 mg PO DAILY dulaglutide (Trulicity) 3 mg (0.5 mL) subcut QWEEK 28 days famotidine (Pepcid) 20 mg PO DAILY furosemide 20 mg PO DAILY glipizide 10 mg PO DAILY 90 days insulin degludec (Tresiba FlexTouch U-100 insulin) 10 units (0.1 mL) subcut BEDTIME 30 days lancets (FreeStyle Lancets) 3 times a day, E11.65 levalbuterol tartrate 45 mcg/actuation (Xopenex HFA) 2 puffs inhalation Q4-6H PRN metformin 1,000 mg (2 x 500 mg) PO BID 90 days metoprolol tartrate 25 mg PO BID pen needle, diabetic (BD Leonora 2nd Gen Pen Needle) once a day sertraline 100 mg PO DAILY zolpidem 10 mg PO BEDTIME PRN Tobacco use date assessed: 01/26/23 Dental Screening Dental Screen Date: 05/11/23 Did you have a dental visit in the last 12 months?: Yes Did you have a dental problem in the last 6 months where you did not have access to dental care?: No Was dental information given to patient?: Patient has dentist HPI 3 month f/u HPI Details DM HTN and hyperlipidemia; doing well; A1C in good control [facility] Medical History Obesity due to excess calories Diabetic neuropathy associated with type 2 diabetes mellitus Obesity (BMI 30-39.9) Hypertension Diabetes type 2, uncontrolled Diabetes mellitus Surgical History History of lumbar surgery History of circumcision Family History Father Diabetes Hypertension Heart disease Mother Diabetes Hypertension Heart disease Social History Household Members: Significant Other Housing: House Alcohol intake: current Alcohol type: beer Patient Tobacco Use Status: Never used Tobacco e-Cigarette/Vaping Use: Never Used Second Hand Smoke Exposure: No service: No Current occupational status: employed Cognitive needs: No Hearing needs: No Vision needs: No Questionnaire Thrive Questionnaire Date Thrive assessed: 01/26/23 SHAHLA-7 AMB Questionnaire SHAHLA-7 Date SHAHLA - 7 assessed: 01/26/23 Source: Developed by Drs. Joel Jacob, Tricia Drake, Brian Beavers and colleagues, with an educational ayad from [employer] Review of Systems Const Denies chills, Denies headache(s) and Denies weight loss ENT Denies headache(s) Card Denies chest pain, Denies syncope, Denies irregular heart rhythm and Denies dyspnea Resp Denies chest congestion, Denies cough and Denies dyspnea GI Denies abdominal pain, Denies change in stool character, Denies nausea and Denies vomiting Musc Denies deformity and Denies joint swelling Neuro Denies syncope and Denies headache(s) Physical exam (Primary Care) Vital Signs: Last Vital Signs Pulse 105 H 05/11/23 11:08 BP 144/80 H 05/11/23 11:08 Pulse Ox 96 05/11/23 11:08 Oxygen Delivery Method Room Air 05/11/23 11:08 BMI result Body Mass Index 37.1 Tobacco/Smoking Status: Tobacco use Status Tobacco use date assessed 01/26/23 05/11/23 11:09 Patient Tobacco Use Status Never used Tobacco 05/11/23 11:09 e-Cigarette/Vaping Use Never Used 05/11/23 11:09 Thrive Assessment: Date of Thrive Assessment Date Thrive assessed 01/26/23 05/11/23 11:09 Const General: cooperative, comfortable, no acute distress and alert Neck Neck: Yes no lymphadenopathy Thyroid: Thyroid normal Resp Effort & Inspection: normal respiratory effort Auscultation: clear to auscultation bilaterally Percussion: percussion normal Cardio Jugular venous distension: no JVD Palpation: normal PMI Rate: regular rate Rhythm: regular rhythm Heart sounds: S1 normal heart sound present and S2 normal heart sound present GI Inspection: Yes normal to inspection Palpation (GI): No hepatosplenomegaly present Skin General skin exam: no rashes or lesions noted Extrem General: Yes no clubbing, cyanosis or edema Assessment and Plan Assessment & Plan (1) Hyperlipidemia: Code(s): E78.5 - Hyperlipidemia, unspecified Plan: stable; same rx (2) Hypertension: Code(s): I10 - Essential (primary) hypertension Plan: stable; same rx (3) Diabetes mellitus with coincident hypertension: Code(s): E11.9 - Type 2 diabetes mellitus without complications; I10 - Essential (primary) hypertension Plan: stzble; same rx Orders: Orders Lipid Panel Today E78.5 - Hyperlipidemia, unspecified Comprehensive [place]. Panel Fast Today N28.9 - Disorder of kidney and ureter, unspecified Complete Blood Count Auto Diff Today D64.9 - Anemia, unspecified Hemoglobin A1c Today R73.9 - Hyperglycemia, unspecified Microalbumin, Random (w Creat) Today E11.69 - Type 2 diabetes mellitus with other specified complication, E66.01 - Morbid (severe) obesity due to excess calories Medications: New ketoconazole 200 mg PO DAILY 60 tabs 2RF Coding Level of Care Code Est Pt Level 4 (95342) Diagnoses Hyperlipidemia E78.5 Hypertension I10 Diabetes mellitus with coincident hypertension E11.9; I10
== END 2023-05-11 11:34 | disposition home or self-care (01) ==
PROVIDERS: PCP Internal Medicine; Visit Provider Internal Medicine
DX: E78.5 Hyperlipidemia, unspecified (principal); I10 Essential (primary) hypertension; E11.69 Type 2 diabetes mellitus with other specified complication
CPT/HCPCS: 99214

== ENCOUNTER 2023-07-26 10:47 | Outpatient (AMB) | payer OTHER, SELFPAY ==
[2023-07-26 10:48] VITALS: BP 140/86; PULSE 110; O2SAT 95; BMI 37.4
--- NOTE | 2023-07-26 10:48 | MHC.PC.OV ---
Vital Signs 07/26/23 10:48 Height 5 ft 8 in Weight 246 lb BMI 37.4 BP 140/86 H Blood Pressure Location Lt brachial Position Sitting Pulse 110 H Pulse Source Pulse Oximeter Pulse Oximetry (%) 95 Oxygen Delivery Method Room Air Intake Visit Reasons: Annual Exam Cold Roll Operator Required: No Mechanic Senior: Not Required per policy Accompanied by: Self / Same As Patient Allergies lisinopril Adverse Reaction (Severe, Verified 07/26/23 10:49) Angioedema Medication List - Last Reconciled 07/28/23 by John Teran MD atorvastatin 10 mg PO BEDTIME blood sugar diagnostic (FreeStyle Lite Strips) 3 times a day, E11.65 blood-glucose meter (FreeStyle Lite Meter kit) 3 times a day, E11.65 citalopram 20 mg PO DAILY dulaglutide (Trulicity) 3 mg (0.5 mL) subcut QWEEK 28 days famotidine (Pepcid) 20 mg PO DAILY furosemide 20 mg PO DAILY glipizide 10 mg PO DAILY 90 days insulin degludec (Tresiba FlexTouch U-100 insulin) 10 units (0.1 mL) subcut BEDTIME 30 days ketoconazole 200 mg PO DAILY lancets (FreeStyle Lancets) 3 times a day, E11.65 levalbuterol tartrate 45 mcg/actuation (Xopenex HFA) 2 puffs inhalation Q4-6H PRN metformin 1,000 mg (2 x 500 mg) PO BID 90 days metoprolol tartrate 25 mg PO BID pen needle, diabetic (BD Leonora 2nd Gen Pen Needle) once a day sertraline 100 mg PO DAILY zolpidem 10 mg PO BEDTIME PRN Tobacco use date assessed: 07/26/23 Dental Screening Dental Screen Date: 07/26/23 Did you have a dental visit in the last 12 months?: Yes Did you have a dental problem in the last 6 months where you did not have access to dental care?: No Was dental information given to patient?: Patient has dentist HPI Annual Exam HPI Details DM hyperlipidemia and depression; BS in good control PFSH Medical History Obesity due to excess calories Diabetic neuropathy associated with type 2 diabetes mellitus Obesity (BMI 30-39.9) Hypertension Diabetes type 2, uncontrolled Diabetes mellitus Surgical History History of lumbar surgery History of circumcision Family History Father Diabetes Hypertension Heart disease Mother Diabetes Hypertension Heart disease Social History Household Members: Significant Other Housing: House Alcohol intake: current Alcohol type: beer Patient Tobacco Use Status: Never used Tobacco e-Cigarette/Vaping Use: Never Used Second Hand Smoke Exposure: No service: No Current occupational status: employed Cognitive needs: No Hearing needs: No Vision needs: No Questionnaire Thrive Questionnaire Date Thrive assessed: 07/26/23 I am a: Patient What is your living situation today?: I have a steady place to live Within the past 12 months, did the food you bought not last and you didn't have the money to get more?: Never true Within the past 12 months, did you worry whether your food would run out before you got money to buy more?: Never true Do you have trouble paying for medicines?: No Do you have trouble getting transportation to medical appointments?: No Do you have trouble paying your heating and electricity bill?: No Do you have trouble taking care of your child, family member or friend?: No Do you have trouble with day-to-day activities such as bathing, preparing meals, shopping, managing finances, etc.?: No Are you currently unemployed and looking for a job?: No Are you interested in more education?: No Please select the resources that you would like help with: None THRIVE Score: 0 AUDIT C Alcohol Use Questionnaire (AUDIT-C) 1. How often do you have a drink containing alcohol?: Monthly or less 2. How many drinks containing alcohol do you have on a typical day when you are drinking?: 1 or 2 Total Score: 1 SHAHLA-7 AMB Questionnaire SHAHLA-7 Date SHAHLA - 7 assessed: 07/26/23 Feeling nervous, anxious, or on edge: 0 = Not at all Not being able to stop or control worryin = Not at all Worrying too much about different things: 0 = Not at all Trouble relaxin = Not at all Being so restless that it is hard to sit still: 0 = Not at all Becoming easily annoyed or irritable: 0 = Not at all Feeling afraid as if something awful might happen: 0 = Not at all Total SHAHLA-7 score (0-4 normal; 5-9 mild; 10-14 moderate; 15-21 severe): 0 Source: Developed by Drs. Joel Jacob, Tricia Drake, Brian Beavers and colleagues, with an educational ayad from [employer]. SHAHLA-7 Assessment Billing SHAHLA-7 Assessment Tool: SHAHLA-7 Assessment 18717 Review of Systems Const Denies chills, Denies fatigue, Denies headache(s) and Denies weight loss Eyes Denies change in vision, Denies diplopia and Denies eye pain ENT Denies vertigo, Denies dizziness, Denies headache(s) and Denies nasal discharge Card Denies chest pain, Denies rapid heart rate and Denies dyspnea on exertion Resp Denies chest congestion, Denies cough, Denies pain with cough and Denies dyspnea on exertion GI Denies abdominal pain, Denies hematochezia and Denies change in bowel habits Musc Denies myalgias, Denies arthralgias and Denies joint swelling Skin/Breast Denies lesions and Denies unusual bruising Neuro Denies vertigo, Denies dizziness, Denies headache(s) and Denies focal weakness Endo Denies fatigue Physical exam (Primary Care) Vital Signs: Last Vital Signs Pulse 110 H 07/26/23 10:48 BP 140/86 H 07/26/23 10:48 Pulse Ox 95 07/26/23 10:48 Oxygen Delivery Method Room Air 07/26/23 10:48 BMI result Body Mass Index 37.4 Tobacco/Smoking Status: Tobacco use Status Tobacco use date assessed 07/26/23 07/26/23 10:50 Patient Tobacco Use Status Never used Tobacco 07/26/23 10:50 e-Cigarette/Vaping Use Never Used 07/26/23 10:50 Thrive Assessment: Date of Thrive Assessment Date Thrive assessed 07/26/23 07/26/23 10:50 Const General: cooperative, healthy appearing and no acute distress Orientation/consciousness: oriented to person, oriented to place and oriented to time HENMT Head: Yes normal to inspection, Yes normocephalic and Yes atraumatic Mouth: Normal oral and palatal mucosa present and tongue normal Throat: Yes posterior oropharynx normal and Yes uvula midline Eyes General: appearance normal, both eyes and all related structures Neck Neck: Yes normal visual inspection, Yes full ROM and Yes no lymphadenopathy Thyroid: Thyroid normal Carotids: normal carotid upstroke Chest Chest palpation & inspection: normal inspection of the chest Resp Effort & Inspection: normal respiratory effort and able to speak in complete sentences Auscultation: clear to auscultation bilaterally Cardio Jugular venous distension: no JVD Palpation: normal PMI Rate: regular rate Rhythm: regular rhythm Heart sounds: S1 normal heart sound present and S2 normal heart sound present GI Inspection: Yes normal to inspection Palpation (GI): Soft to palpation and No hepatosplenomegaly present Auscultation: normal bowel sounds General: Yes no CVA tenderness Back/Spine/Pelvis Back: no CVA tenderness Skin General skin exam: no rashes or lesions noted Neuro General: oriented to person, oriented to place and oriented to time Extrem General: Yes normal to inspection and Yes full ROM Results AMB Hemoglobin A1c AMB Hemoglobin A1c 6.6 % Last Edit by FATEMEH Jaimes on 07/26/23 11:05 Results Reviewed Results Reviewed: Laboratory Last Values Hgb A1c (Clinic) 6.6 % (4.0-6.0) H 07/26/23 10:50 Assessment and Plan Assessment & Plan (1) Diabetes mellitus with coincident hypertension: Code(s): E11.9 - Type 2 diabetes mellitus without complications; I10 - Essential (primary) hypertension Plan: stable; do labs (2) Physical exam: Code(s): Z00.00 - Encounter for general adult medical examination without abnormal findings Plan: stable (3) Hyperlipidemia: Code(s): E78.5 - Hyperlipidemia, unspecified Plan: same rx; labs (4) Depression: Code(s): F32.A - Depression, unspecified Plan: controlled; smae rx Orders: Orders AMB Hemoglobin A1c 07/26/23 E11.9 - Type 2 diabetes mellitus without complications, I10 - Essential (primary) hypertension Lipid Panel 07/26/23 E78.5 - Hyperlipidemia, unspecified Comprehensive [place]. Panel Fast 07/26/23 N28.9 - Disorder of kidney and ureter, unspecified Microalbumin, Random (w Creat) 07/26/23 E11.69 - Type 2 diabetes mellitus with other specified complication, E66.01 - Morbid (severe) obesity due to excess calories Complete Blood Count Auto Diff 07/26/23 D64.9 - Anemia, unspecified Hemoglobin A1c 07/26/23 R73.9 - Hyperglycemia, unspecified Coding Level of Care Code Est Pt Prev Care 40-64y(47431) Diagnoses Diabetes mellitus with coincident hypertension E11.9; I10 Physical exam Z00.00 Hyperlipidemia E78.5 Depression F32.A Additional Codes SHAHLA-7 Assessment Billing - SHAHLA-7 Assessment Tool: SHAHLA-7 Assessment [id number] ([id number])
== END 2023-07-26 11:09 | disposition home or self-care (01) ==
PROVIDERS: Visit Provider Internal Medicine
DX: Z00.00 Encounter for general adult medical examination without abnormal findings (principal); E11.69 Type 2 diabetes mellitus with other specified complication; I10 Essential (primary) hypertension; E78.5 Hyperlipidemia, unspecified; F32.A Depression, unspecified
CPT/HCPCS: 83036; 99396

== ENCOUNTER 2023-10-19 07:53 | Outpatient (REF) | payer OTHER, SELFPAY ==
[2023-10-19 08:19] LABS: MANUAL DIFF FLAG NO
[2023-10-19 09:14] LABS: Basophils Absolute Auto 0.1 X10*3/uL (0.0-0.2); Eosinophils Absolute Auto 0.2 X10*3/uL (0.0-0.4); Hemoglobin 13.2 g/dl (14.0-18.0); Imm Gran Abs Auto 0.02 X10*3/uL (0.00-0.03); Imm Gran Pct Auto 0.3 % (0.0-0.4); Lymphocytes Absolute Auto 1.3 X10*3/uL (1.2-4.9); Lymphocytes Percent Auto 21.6 % (20-40); Mean Corpuscular HGB Conc 32.2 g/dl (31.0-36.0); Mean Corpuscular Hemoglobin 30.1 pg (27.0-33.0); Mean Corpuscular Volume 93.6 fL (80.0-98.0); Mean Platelet Volume 10.3 fL (9.4-12.4); Monocytes Absolute Auto 0.6 X10*3/uL (0.1-1.2); Monocytes Percent Auto 10.2 % (2-11); Neutrophils Absolute Auto 3.7 x10*3/uL (2.0-8.3); Neutrophils Percent Auto 62.9 % (45-73); Platelet Count 114 X10*3/uL (160-400); Red Blood Count 4.38 X10*6/uL (4.60-5.80); Red Cell Distribution Width 13.5 % (11.0-16.0)
[2023-10-19 09:19] LABS: Estimated Average Glucose 134 mg/dL; Hemoglobin A1c % 6.3 % (<6.0)
[2023-10-19 09:49] LABS: Alanine Aminotransferase 21 U/L (0-40); Albumin Level 2.9 g/dL (3.5-5.0); Alkaline Phosphatase 181 U/L (39-117); Anion Gap 13 (12-20); Aspartate Amino Transferase 45 U/L (5-37); Bilirubin Total 1.6 mg/dL (0.0-1.0); Blood Urea Nitrogen 6 mg/dL (9-16); Calcium 9.3 mg/dL (8.4-10.2); Carbon Dioxide 25 mmol/L (22-29); Chloride 104 mmol/L (96-108); Cholesterol 130 mg/dL (<200); Estimated Glomerular Filt Rate > 60; Glucose Fasting 129 mg/dL (60-99); HDL Cholesterol 52 mg/dL (>40); LDL Cholesterol Calculated 66 mg/dL (<100); Sodium 138 mmol/L (135-145); Total Protein 8.3 g/dL (6.5-8.0); Triglycerides 63 mg/dL (<150)
[2023-10-19 09:57] LABS: Creatinine Urine 96.32 mg/dL; Microalbum/Creatinine Ratio Ur 7.2 ug/mg cr (<30)
== END 2023-10-19 07:54 | disposition home or self-care (01) ==
LOC: HO.LAB 07:53
PROVIDERS: PCP Internal Medicine; Visit Provider Internal Medicine
DX: N28.9 Disorder of kidney and ureter, unspecified (principal); E78.5 Hyperlipidemia, unspecified; D64.9 Anemia, unspecified; E11.69 Type 2 diabetes mellitus with other specified complication; E66.01 Morbid (severe) obesity due to excess calories
CPT/HCPCS: 36415; 80053; 80061; 82043; 82570; 83036; 85025

== ENCOUNTER 2023-11-05 10:09 | Outpatient (AMB) | payer OTHER, SELFPAY ==
[2023-11-05 10:11] VITALS: BP 140/82; PULSE 85; O2SAT 97; BMI 35.9
--- NOTE | 2023-11-05 10:11 | A.OFFPC_ITS ---
Vital Signs 11/05/23 10:11 Height 5 ft 8 in Weight 236 lb BMI 35.9 BP 140/82 H Blood Pressure Location Lt brachial Position Sitting Pulse 85 Pulse Source Pulse Oximeter Pulse Oximetry (%) 97 Oxygen Delivery Method Room Air Intake Visit Reasons: 3mth f/u Dance Costume Designer Required: No Tar Leveler: Not Required per policy Accompanied by: Self / Same As Patient Allergies lisinopril Adverse Reaction (Severe, Verified 11/05/23 10:12) Angioedema Medication List - Last Reconciled 11/05/23 by John Teran MD atorvastatin 10 mg PO BEDTIME blood sugar diagnostic (FreeStyle Lite Strips) 3 times a day, E11.65 blood-glucose meter (FreeStyle Lite Meter kit) 3 times a day, E11.65 citalopram 20 mg PO DAILY dulaglutide (Trulicity) 3 mg (0.5 mL) subcut QWEEK 28 days famotidine (Pepcid) 20 mg PO DAILY furosemide 20 mg PO DAILY glipizide 10 mg PO DAILY 90 days insulin degludec (Tresiba FlexTouch U-100 insulin) 10 units (0.1 mL) subcut BEDTIME 30 days ketoconazole 200 mg PO DAILY lancets (FreeStyle Lancets) 3 times a day, E11.65 levalbuterol tartrate 45 mcg/actuation (Xopenex HFA) 2 puffs inhalation Q4-6H PRN metformin 1,000 mg (2 x 500 mg) PO BID 90 days metoprolol tartrate 25 mg PO BID pen needle, diabetic (BD Leonora 2nd Gen Pen Needle) once a day sertraline 100 mg PO DAILY zolpidem 10 mg PO BEDTIME PRN Tobacco use date assessed: 07/26/23 Dental Screening Dental Screen Date: 07/26/23 HPI 3mth f/u HPI Details hyperlipidemia on rx; doing well and compliant [facility] Medical History Obesity due to excess calories Diabetic neuropathy associated with type 2 diabetes mellitus Obesity (BMI 30-39.9) Hypertension Diabetes type 2, uncontrolled Diabetes mellitus Surgical History History of lumbar surgery History of circumcision Family History Father Diabetes Hypertension Heart disease Mother Diabetes Hypertension Heart disease Social History Household Members: Significant Other Housing: House Alcohol intake: current Alcohol type: beer Patient Tobacco Use Status: Never used Tobacco e-Cigarette/Vaping Use: Never Used Second Hand Smoke Exposure: No service: No Current occupational status: employed Cognitive needs: No Hearing needs: No Vision needs: No Questionnaire PHQ-9 Over the last 2 weeks, how often have you been bothered by any of the following problems? 1. Little interest or pleasure in doing things: not at all 2. Feeling down, depressed, or hopeless: not at all (currently on medication) 3. Trouble falling or staying asleep, or sleeping too much: not at all 4. Feeling tired or having little energy: not at all 5. Poor appetite or overeating: not at all 6. Feeling bad about yourself - or that you are a failure or have let yourself or your family down: not at all 7. Trouble concentrating on things, such as reading the newspaper or watching television: not at all 8. Moving or speaking so slowly that other people could have noticed. Or the opposite - being so fidgety or restless that you have been moving around a lot more than usual: not at all 9. Thoughts that you would be better off or of hurting yourself in some way: not at all Total score: 0 Depression Screening Interpretation: Negative Depression Screening Done: Yes Source: Developed by Drs. Joel Jacob, Brian Parsons and colleagues, with an educational ayad from [employer]. Thrive Questionnaire Date Thrive assessed: 07/26/23 SHAHLA-7 AMB Questionnaire SHAHLA-7 Date SHAHLA - 7 assessed: 07/26/23 Source: Developed by Drs. Joel Jacob, Brian Parsons and colleagues, with an educational ayad from [employer]. Review of Systems Const Denies chills, Denies headache(s) and Denies weight loss ENT Denies headache(s) Card Denies chest pain, Denies syncope, Denies irregular heart rhythm and Denies dyspnea Resp Denies chest congestion, Denies cough and Denies dyspnea GI Denies abdominal pain, Denies change in stool character, Denies nausea and Denies vomiting Musc Denies deformity and Denies joint swelling Neuro Denies syncope and Denies headache(s) Physical exam (Primary Care) Vital Signs: Last Vital Signs Pulse 85 11/05/23 10:11 BP 140/82 H 11/05/23 10:11 Pulse Ox 97 11/05/23 10:11 Oxygen Delivery Method Room Air 11/05/23 10:11 BMI result Body Mass Index 35.9 Tobacco/Smoking Status: Tobacco use Status Tobacco use date assessed 07/26/23 11/05/23 10:16 Patient Tobacco Use Status Never used Tobacco 11/05/23 10:16 e-Cigarette/Vaping Use Never Used 11/05/23 10:16 PHQ-9: PHQ-9 Score PHQ-9: Total score 0 11/05/23 10:16 Depression Screening Interpretation: Negative Thrive Assessment: Date of Thrive Assessment Date Thrive assessed 07/26/23 11/05/23 10:16 Const General: cooperative, comfortable, no acute distress and alert Neck Neck: Yes no lymphadenopathy Thyroid: Thyroid normal Resp Effort & Inspection: normal respiratory effort Auscultation: clear to auscultation bilaterally Percussion: percussion normal Cardio Jugular venous distension: no JVD Palpation: normal PMI Rate: regular rate Rhythm: regular rhythm Heart sounds: S1 normal heart sound present and S2 normal heart sound present GI Inspection: Yes normal to inspection Palpation (GI): No hepatosplenomegaly present Skin General skin exam: no rashes or lesions noted Extrem General: Yes no clubbing, cyanosis or edema Assessment and Plan Assessment & Plan (1) Hyperlipidemia: Code(s): E78.5 - Hyperlipidemia, unspecified Plan: stable; same rx Orders: Orders Complete Blood Count Auto Diff Today Z13.0 - Encounter for screening for diseases of the blood and blood-forming organs and certain disorders involving the immune mechanism Comprehensive [place]. Panel Fast Today Z13.9 - Encounter for screening, unspecified Hemoglobin A1c Today R73.9 - Hyperglycemia, unspecified Lipid Panel Today Z13.220 - Encounter for screening for lipoid disorders Coding Level of Care Code Est Pt Level 3 (63604) Diagnoses Hyperlipidemia E78.5
== END 2023-11-05 10:24 | disposition home or self-care (01) ==
PROVIDERS: PCP Internal Medicine; Visit Provider Internal Medicine
DX: E78.5 Hyperlipidemia, unspecified (principal)
CPT/HCPCS: 99213

== ENCOUNTER 2023-11-24 14:08 | Outpatient (AMB) | payer OTHER, SELFPAY ==
--- NOTE | 2023-11-24 14:13 | MHC.PC.OV ---
Vital Signs 11/24/23 14:15 Height 5 ft 8 in Weight 231 lb 8 oz BMI 35.2 BP 130/70 Blood Pressure Location Lt brachial Position Sitting Pulse 99 Pulse Source Pulse Oximeter Pulse Oximetry (%) 95 Oxygen Delivery Method Room Air Intake Visit Reasons: discuss new medication Intake Note: Patient is here to follow up on medication review. Metal Fitters And Machinists Required: No Industrial Technologist: Not Required per policy Accompanied by: Self / Same As Patient Allergies lisinopril Adverse Reaction (Severe, Verified 11/24/23 14:14) Angioedema Medication List - Last Reconciled 11/25/23 by John Teran MD albuterol sulfate 90 mcg/actuation (Proventil HFA) 2 puffs inhalation Q4-6H PRN atorvastatin 10 mg PO BEDTIME blood sugar diagnostic (FreeStyle Lite Strips) 3 times a day, E11.65 blood-glucose meter (FreeStyle Lite Meter kit) 3 times a day, E11.65 citalopram 20 mg PO DAILY dulaglutide (Trulicity) 3 mg (0.5 mL) subcut QWEEK 28 days famotidine (Pepcid) 20 mg PO DAILY furosemide 20 mg PO DAILY glipizide 10 mg PO DAILY 90 days insulin degludec (Tresiba FlexTouch U-100 insulin) 10 units (0.1 mL) subcut BEDTIME 30 days ketoconazole 200 mg PO DAILY lancets (FreeStyle Lancets) 3 times a day, E11.65 metformin 1,000 mg (2 x 500 mg) PO BID 90 days metoprolol tartrate 25 mg PO BID pen needle, diabetic (BD Leonora 2nd Gen Pen Needle) once a day sertraline 100 mg PO DAILY zolpidem 10 mg PO BEDTIME PRN Tobacco use date assessed: 11/24/23 Dental Screening Dental Screen Date: 07/26/23 HPI discuss new medication HPI Details has toe nail fungus PFSH Medical History Obesity due to excess calories Diabetic neuropathy associated with type 2 diabetes mellitus Obesity (BMI 30-39.9) Hypertension Diabetes type 2, uncontrolled Diabetes mellitus Surgical History History of lumbar surgery History of circumcision Family History Father Diabetes Hypertension Heart disease Mother Diabetes Hypertension Heart disease Social History Household Members: Significant Other Housing: House Alcohol intake: current Alcohol type: beer Patient Tobacco Use Status: Never used Tobacco e-Cigarette/Vaping Use: Never Used Second Hand Smoke Exposure: No service: No Current occupational status: employed Cognitive needs: No Hearing needs: No Vision needs: No Questionnaire Thrive Questionnaire Date Thrive assessed: 07/26/23 SHAHLA-7 AMB Questionnaire SHAHLA-7 Date SHAHLA - 7 assessed: 07/26/23 Source: Developed by Drs. Joel Jacob, Tricia Drake, Brian Beavers and colleagues, with an educational ayad from [employer]. Review of Systems Const Denies chills, Denies headache(s) and Denies weight loss ENT Denies headache(s) Card Denies chest pain, Denies syncope, Denies irregular heart rhythm and Denies dyspnea Resp Denies chest congestion, Denies cough and Denies dyspnea GI Denies abdominal pain, Denies change in stool character, Denies nausea and Denies vomiting Musc Denies deformity and Denies joint swelling Neuro Denies syncope and Denies headache(s) Physical exam (Primary Care) Vital Signs: Last Vital Signs Pulse 99 11/24/23 14:15 BP 130/70 11/24/23 14:15 Pulse Ox 95 11/24/23 14:15 Oxygen Delivery Method Room Air 11/24/23 14:15 BMI result Body Mass Index 35.2 Tobacco/Smoking Status: Tobacco use Status Tobacco use date assessed 11/24/23 11/24/23 14:18 Patient Tobacco Use Status Never used Tobacco 11/24/23 14:18 e-Cigarette/Vaping Use Never Used 11/24/23 14:18 Thrive Assessment: Date of Thrive Assessment Date Thrive assessed 07/26/23 11/24/23 14:18 Const General: cooperative, comfortable, no acute distress and alert Neck Neck: Yes no lymphadenopathy Thyroid: Thyroid normal Resp Effort & Inspection: normal respiratory effort Auscultation: clear to auscultation bilaterally Percussion: percussion normal Cardio Jugular venous distension: no JVD Palpation: normal PMI Rate: regular rate Rhythm: regular rhythm Heart sounds: S1 normal heart sound present and S2 normal heart sound present GI Inspection: Yes normal to inspection Palpation (GI): No hepatosplenomegaly present Skin General skin exam: no rashes or lesions noted Extrem General: Yes no clubbing, cyanosis or edema Assessment and Plan Assessment & Plan (1) Toenail fungus: Code(s): B35.1 - Tinea unguium Plan: rx sent Medications: New efinaconazole 10% (Jublia) 1 appl topical DAILY 48 weeks 4 mL 1RF Coding Level of Care Code Est Pt Level 3 (14402) Diagnoses Toenail fungus B35.1
[2023-11-24 14:15] VITALS: BP 130/70; PULSE 99; O2SAT 95; BMI 35.2
== END 2023-11-24 15:38 | disposition home or self-care (01) ==
PROVIDERS: PCP Internal Medicine; Visit Provider Internal Medicine
DX: B35.1 Tinea unguium (principal)
CPT/HCPCS: 99213

== ENCOUNTER 2024-02-04 10:17 | Outpatient (AMB) | payer OTHER, SELFPAY ==
--- NOTE | 2024-02-04 10:19 | MHC.PC.OV ---
Vital Signs 02/04/24 10:21 Height 5 ft 8 in Weight 238 lb BMI 36.2 BP 146/82 H Blood Pressure Location Lt brachial Position Sitting Pulse 89 Pulse Source Pulse Oximeter Pulse Oximetry (%) 96 Oxygen Delivery Method Room Air Intake Visit Reasons: 3 Month F/U Allergies lisinopril Adverse Reaction (Severe, Verified 02/04/24 10:24) Angioedema Medication List - Last Reconciled 02/07/24 by John Teran MD albuterol sulfate 90 mcg/actuation (Proventil HFA) 2 puffs inhalation Q4-6H PRN atorvastatin 10 mg PO BEDTIME blood sugar diagnostic (FreeStyle Lite Strips) 3 times a day, E11.65 blood-glucose meter (FreeStyle Lite Meter kit) 3 times a day, E11.65 citalopram 20 mg PO DAILY dulaglutide (Trulicity) 3 mg (0.5 mL) subcut QWEEK 28 days efinaconazole 10% (Jublia) 1 appl topical DAILY 48 weeks famotidine (Pepcid) 20 mg PO DAILY furosemide 20 mg PO DAILY glipizide 10 mg PO DAILY 90 days insulin degludec (Tresiba FlexTouch U-100 insulin) 10 units (0.1 mL) subcut BEDTIME 30 days ketoconazole 200 mg PO DAILY lancets (FreeStyle Lancets) 3 times a day, E11.65 metformin 1,000 mg (2 x 500 mg) PO BID 90 days metoprolol tartrate 25 mg PO BID pen needle, diabetic (BD Leonora 2nd Gen Pen Needle) once a day sertraline 100 mg PO DAILY sildenafil (Viagra) 50 mg PO DAILY PRN zolpidem 10 mg PO BEDTIME PRN Tobacco use date assessed: 11/24/23 Dental Screening Dental Screen Date: 02/04/24 Did you have a dental visit in the last 12 months?: Yes Did you have a dental problem in the last 6 months where you did not have access to dental care?: No Was dental information given to patient?: Patient has dentist HPI 3 Month F/U HPI Details DM HTN and hyperlipidemia on rx; compliant and doing well [facility] Medical History Obesity due to excess calories Diabetic neuropathy associated with type 2 diabetes mellitus Obesity (BMI 30-39.9) Hypertension Diabetes type 2, uncontrolled Diabetes mellitus Surgical History History of lumbar surgery History of circumcision Family History Father Diabetes Hypertension Heart disease Mother Diabetes Hypertension Heart disease Social History Household Members: Significant Other Housing: House Alcohol intake: current Alcohol type: beer Patient Tobacco Use Status: Never used Tobacco e-Cigarette/Vaping Use: Never Used Second Hand Smoke Exposure: No service: No Current occupational status: employed Cognitive needs: No Hearing needs: No Vision needs: No Questionnaire PHQ-9 Over the last 2 weeks, how often have you been bothered by any of the following problems? 1. Little interest or pleasure in doing things: not at all 2. Feeling down, depressed, or hopeless: not at all (currently on medication) 3. Trouble falling or staying asleep, or sleeping too much: not at all 4. Feeling tired or having little energy: not at all 5. Poor appetite or overeating: not at all 6. Feeling bad about yourself - or that you are a failure or have let yourself or your family down: not at all 7. Trouble concentrating on things, such as reading the newspaper or watching television: not at all 8. Moving or speaking so slowly that other people could have noticed. Or the opposite - being so fidgety or restless that you have been moving around a lot more than usual: not at all 9. Thoughts that you would be better off or of hurting yourself in some way: not at all Total score: 0 Depression Screening Interpretation: Negative Depression Screening Done: Yes Source: Developed by Drs. Joel Jacob, Tricia Drake, Brian Beavers and colleagues, with an educational ayad from [employer]. Thrive Questionnaire Date Thrive assessed: 07/26/23 AUDIT C Alcohol Use Questionnaire (AUDIT-C) 1. How often do you have a drink containing alcohol?: Monthly or less 2. How many drinks containing alcohol do you have on a typical day when you are drinking?: 1 or 2 Total Score: 1 SHAHLA-7 AMB Questionnaire SHAHLA-7 Date SHAHLA - 7 assessed: 07/26/23 Source: Developed by Drs. Joel Jacob, Tricia Drake, Brian Beavers and colleagues, with an educational ayad from [employer]. Review of Systems Const Denies chills, Denies headache(s) and Denies weight loss ENT Denies headache(s) Card Denies chest pain, Denies syncope, Denies irregular heart rhythm and Denies dyspnea Resp Denies chest congestion, Denies cough and Denies dyspnea GI Denies abdominal pain, Denies change in stool character, Denies nausea and Denies vomiting Musc Denies deformity and Denies joint swelling Neuro Denies syncope and Denies headache(s) Physical exam (Primary Care) Vital Signs: Last Vital Signs Pulse 89 02/04/24 10:21 BP 146/82 H 02/04/24 10:21 Pulse Ox 96 02/04/24 10:21 Oxygen Delivery Method Room Air 02/04/24 10:21 BMI result Body Mass Index 36.2 Tobacco/Smoking Status: Tobacco use Status Tobacco use date assessed 11/24/23 02/04/24 10:20 Patient Tobacco Use Status Never used Tobacco 02/04/24 10:20 e-Cigarette/Vaping Use Never Used 02/04/24 10:20 PHQ-9: PHQ-9 Score PHQ-9: Total score 0 02/04/24 10:27 Depression Screening Interpretation: Negative Thrive Assessment: Date of Thrive Assessment Date Thrive assessed 07/26/23 02/04/24 10:20 Const General: cooperative, comfortable, no acute distress and alert Neck Neck: Yes no lymphadenopathy Thyroid: Thyroid normal Resp Effort & Inspection: normal respiratory effort Auscultation: clear to auscultation bilaterally Percussion: percussion normal Cardio Jugular venous distension: no JVD Palpation: normal PMI Rate: regular rate Rhythm: regular rhythm Heart sounds: S1 normal heart sound present and S2 normal heart sound present GI Inspection: Yes normal to inspection Palpation (GI): No hepatosplenomegaly present Skin General skin exam: no rashes or lesions noted Extrem General: Yes no clubbing, cyanosis or edema Results AMB Hemoglobin A1c AMB Hemoglobin A1c 6.1 % Last Edit by Carmen Abreu CMA on 02/04/24 10:30 Results Reviewed Results Reviewed: Laboratory Last Values Hgb A1c (Clinic) 6.1 % (4.0-6.0) H 02/04/24 10:27 Assessment and Plan Assessment & Plan (1) Diabetes mellitus with coincident hypertension: Code(s): E11.9 - Type 2 diabetes mellitus without complications; I10 - Essential (primary) hypertension Plan: stable; do labs (2) Hyperlipidemia: Code(s): E78.5 - Hyperlipidemia, unspecified Plan: stable; same rx (3) Hypertension: Code(s): I10 - Essential (primary) hypertension Plan: stable; same rx Orders: Orders Comprehensive [place]. Panel Fast Today Z13.9 - Encounter for screening, unspecified Hemoglobin A1c Today R73.9 - Hyperglycemia, unspecified AMB Hemoglobin A1c 02/04/24 E11.9 - Type 2 diabetes mellitus without complications, I10 - Essential (primary) hypertension Lipid Panel Today Z13.220 - Encounter for screening for lipoid disorders Thyroid Stimulating Hormone Today Z13.29 - Encounter for screening for other suspected endocrine disorder Referrals Gastroenterology Referral Z12.11 - Encounter for screening for malignant neoplasm of colon Medications: New sildenafil (Viagra) administer 30 minutes to 4 hours before activity 50 mg PO DAILY PRN 20 tabs 3RF sexual activity Coding Level of Care Code Est Pt Level 4 (07030) Diagnoses Diabetes mellitus with coincident hypertension E11.9; I10 Hyperlipidemia E78.5 Hypertension I10
[2024-02-04 10:21] VITALS: BP 146/82; PULSE 89; O2SAT 96; BMI 36.2
== END 2024-02-04 10:34 | disposition home or self-care (01) ==
PROVIDERS: PCP Internal Medicine; Visit Provider Internal Medicine
DX: E11.9 Type 2 diabetes mellitus without complications (principal); I10 Essential (primary) hypertension
CPT/HCPCS: 83036; 99214

== ENCOUNTER 2024-05-05 10:47 | Outpatient (REF) | payer OTHER, SELFPAY ==
[2024-05-05 11:07] LABS: MANUAL DIFF FLAG NO
[2024-05-05 11:44] LABS: Basophils Absolute Auto 0.1 X10*3/uL (0.0-0.2); Basophils Percent Auto 0.9 % (0-2); Eosinophils Absolute Auto 0.2 X10*3/uL (0.0-0.4); Hematocrit 39.9 % (42.0-52.0); Hemoglobin 12.6 g/dl (14.0-18.0); Imm Gran Abs Auto 0.02 X10*3/uL (0.00-0.03); Imm Gran Pct Auto 0.4 % (0.0-0.4); Lymphocytes Absolute Auto 1.2 X10*3/uL (1.2-4.9); Lymphocytes Percent Auto 20.2 % (20-40); Mean Corpuscular HGB Conc 31.6 g/dl (31.0-36.0); Mean Corpuscular Volume 88.7 fL (80.0-98.0); Mean Platelet Volume 10.2 fL (9.4-12.4); Monocytes Absolute Auto 0.6 X10*3/uL (0.1-1.2); Monocytes Percent Auto 10.7 % (2-11); Neutrophils Absolute Auto 3.6 x10*3/uL (2.0-8.3); Neutrophils Percent Auto 63.8 % (45-73); Platelet Count 113 X10*3/uL (160-400); Red Cell Distribution Width 13.6 % (11.0-16.0); White Blood Count 5.7 X10*3/uL (4.8-10.8)
[2024-05-05 11:47] LABS: Estimated Average Glucose 157 mg/dL; Hemoglobin A1C 170.8842 umol/L; Hemoglobin A1c % 7.1 % (<6.0); Total Hemoglobin (HGBA1C) 3164.3004 umol/L
[2024-05-05 12:21] LABS: Alanine Aminotransferase 18 U/L (0-40); Albumin Level 2.9 g/dL (3.5-5.0); Alkaline Phosphatase 160 U/L (39-117); Anion Gap 12 (12-20); Aspartate Amino Transferase 55 U/L (5-37); Bilirubin Total 1.4 mg/dL (0.0-1.0); Blood Urea Nitrogen 9 mg/dL (9-16); Carbon Dioxide 25 mmol/L (22-29); Chloride 102 mmol/L (96-108); Cholesterol 131 mg/dL (<200); Estimated Glomerular Filt Rate > 60; Glucose Fasting 171 mg/dL (60-99); HDL Cholesterol 64 mg/dL (>40); LDL Cholesterol Calculated 55 mg/dL (<100); Sodium 135 mmol/L (135-145); Total Protein 7.9 g/dL (6.5-8.0); Triglycerides 61 mg/dL (<150)
[2024-05-05 12:27] LABS: Thyroid Stimulating Hormone 1.95 uIU/mL (0.32-4.0)
[2024-05-05 13:36] LABS: Creatinine Urine 111.92 mg/dL; Microalbum/Creatinine Ratio Ur 28.5 ug/mg cr (<30)
== END 2024-05-05 10:48 | disposition home or self-care (01) ==
LOC: HO.LAB 10:47
PROVIDERS: PCP Internal Medicine; Visit Provider Internal Medicine
DX: Z13.0 Encounter for screening for diseases of the blood and blood-forming organs and certain disorders involving the immune mechanism (principal); Z13.9 Encounter for screening, unspecified; R73.9 Hyperglycemia, unspecified; E11.69 Type 2 diabetes mellitus with other specified complication; E66.01 Morbid (severe) obesity due to excess calories; E78.5 Hyperlipidemia, unspecified; Z13.29 Encounter for screening for other suspected endocrine disorder
CPT/HCPCS: 36415; 80053; 80061; 82043; 82570; 83036; 84443; 85025

== ENCOUNTER 2024-06-20 11:27 | Outpatient (AMB) | payer OTHER, SELFPAY ==
--- NOTE | 2024-06-20 11:31 | A.OFFPC_ITS ---
Vital Signs 06/20/24 11:33 Height 5 ft 8 in Weight 245 lb 4 oz BMI 37.3 BP 130/62 Blood Pressure Location Lt brachial Position Sitting Pulse 91 Pulse Source Pulse Oximeter Pulse Oximetry (%) 94 Oxygen Delivery Method Room Air Intake Visit Reasons: Lab results Intake Note: Patient is here to follow up on Lab results. Transit Proof Machine Operator Required: No Milling/Polishing Operator: Not Required per policy Accompanied by: Self / Same As Patient Allergies lisinopril Adverse Reaction (Severe, Verified 06/20/24 11:33) Angioedema Medication List - Last Reconciled 06/20/24 by John Teran MD albuterol sulfate 90 mcg/actuation 2 puffs inhalation Q4-6H PRN atorvastatin 10 mg PO BEDTIME blood sugar diagnostic (FreeStyle Lite Strips) 3 times a day, E11.65 blood-glucose meter (FreeStyle Lite Meter kit) 3 times a day, E11.65 citalopram 20 mg PO DAILY dulaglutide (Trulicity) 3 mg (0.5 mL) subcut QWEEK 28 days efinaconazole 10% (Jublia) 1 appl topical DAILY 48 weeks famotidine (Pepcid) 20 mg PO DAILY furosemide 20 mg PO DAILY glipizide 10 mg PO DAILY 90 days insulin degludec (Tresiba FlexTouch U-100 insulin) 10 units (0.1 mL) subcut BEDTIME 30 days ketoconazole 200 mg PO DAILY lancets (FreeStyle Lancets) 3 times a day, E11.65 metformin 1,000 mg (2 x 500 mg) PO BID 90 days metoprolol tartrate 25 mg PO BID pen needle, diabetic (BD Leonora 2nd Gen Pen Needle) once a day sertraline 100 mg PO DAILY sildenafil (Viagra) 50 mg PO DAILY PRN zolpidem 10 mg PO BEDTIME PRN Tobacco use date assessed: 06/20/24 Dental Screening Dental Screen Date: 06/20/24 Did you have a dental visit in the last 12 months?: Yes Did you have a dental problem in the last 6 months where you did not have access to dental care?: No Was dental information given to patient?: Patient has dentist HPI Lab results HPI Details hyperlipidemia on rx; doing well and compliant [facility] Medical History Obesity due to excess calories Diabetic neuropathy associated with type 2 diabetes mellitus Obesity (BMI 30-39.9) Hypertension Diabetes type 2, uncontrolled Diabetes mellitus Surgical History History of lumbar surgery History of circumcision Family History Father Diabetes Hypertension Heart disease Mother Diabetes Hypertension Heart disease Social History Household Members: Significant Other Housing: House Alcohol intake: current Alcohol type: beer Patient Tobacco Use Status: Never used Tobacco e-Cigarette/Vaping Use: Never Used Second Hand Smoke Exposure: No service: No Current occupational status: employed Cognitive needs: No Hearing needs: No Vision needs: No Questionnaire PHQ-9 Over the last 2 weeks, how often have you been bothered by any of the following problems? 1. Little interest or pleasure in doing things: not at all 2. Feeling down, depressed, or hopeless: not at all 3. Trouble falling or staying asleep, or sleeping too much: not at all 4. Feeling tired or having little energy: not at all 5. Poor appetite or overeating: not at all 6. Feeling bad about yourself - or that you are a failure or have let yourself or your family down: not at all 7. Trouble concentrating on things, such as reading the newspaper or watching television: not at all 8. Moving or speaking so slowly that other people could have noticed. Or the opposite - being so fidgety or restless that you have been moving around a lot more than usual: not at all 9. Thoughts that you would be better off or of hurting yourself in some way: not at all Total score: 0 Depression Screening Interpretation: Negative Depression Screening Done: Yes Source: Developed by Drs. Joel Jacob, Tricia Drake, Brian Beavers and colleagues, with an educational ayad from [employer]. Thrive Questionnaire Date Thrive assessed: 06/20/24 I am a: Patient What is your living situation today?: I have a steady place to live Within the past 12 months, did the food you bought not last and you didn't have the money to get more?: Never true Within the past 12 months, did you worry whether your food would run out before you got money to buy more?: Never true Do you have trouble paying for medicines?: No Do you have trouble getting transportation to medical appointments?: No Do you have trouble paying your heating and electricity bill?: No Do you have trouble taking care of your child, family member or friend?: No Do you have trouble with day-to-day activities such as bathing, preparing meals, shopping, managing finances, etc.?: No Are you currently unemployed and looking for a job?: No Are you interested in more education?: No Currently or been in a relationship where the following occur: No concerns reported THRIVE Score: 0 AUDIT C Alcohol Use Questionnaire (AUDIT-C) 1. How often do you have a drink containing alcohol?: Monthly or less 2. How many drinks containing alcohol do you have on a typical day when you are drinking?: 1 or 2 Total Score: 1 SHAHLA-7 AMB Questionnaire SHAHLA-7 Date SHAHLA - 7 assessed: 06/20/24 Feeling nervous, anxious, or on edge: 0 = Not at all Not being able to stop or control worryin = Not at all Worrying too much about different things: 0 = Not at all Trouble relaxin = Not at all Being so restless that it is hard to sit still: 0 = Not at all Becoming easily annoyed or irritable: 0 = Not at all Feeling afraid as if something awful might happen: 0 = Not at all Total SHAHLA-7 score (0-4 normal; 5-9 mild; 10-14 moderate; 15-21 severe): 0 Source: Developed by Drs. Joel Jacob, Tricia Drake, Brian Beavers and colleagues, with an educational ayad from [employer]. Review of Systems Const Denies chills, Denies headache(s) and Denies weight loss ENT Denies headache(s) Card Denies chest pain, Denies syncope, Denies irregular heart rhythm and Denies dyspnea Resp Denies chest congestion, Denies cough and Denies dyspnea GI Denies abdominal pain, Denies change in stool character, Denies nausea and Denies vomiting Musc Denies deformity and Denies joint swelling Neuro Denies syncope and Denies headache(s) Physical exam (Primary Care) Vital Signs: Last Vital Signs Pulse 91 06/20/24 11:33 BP 130/62 06/20/24 11:33 Pulse Ox 94 06/20/24 11:33 Oxygen Delivery Method Room Air 06/20/24 11:33 BMI result Body Mass Index 37.3 Tobacco/Smoking Status: Tobacco use Status Tobacco use date assessed 06/20/24 06/20/24 11:33 Patient Tobacco Use Status Never used Tobacco 06/20/24 11:33 e-Cigarette/Vaping Use Never Used 06/20/24 11:33 PHQ-9: PHQ-9 Score PHQ-9: Total score 0 06/20/24 11:33 Depression Screening Interpretation: Negative Thrive Assessment: Date of Thrive Assessment Date Thrive assessed 06/20/24 06/20/24 11:33 Currently or been in a relationship where the following occur: No concerns reported Const General: cooperative, comfortable, no acute distress and alert Neck Neck: Yes no lymphadenopathy Thyroid: Thyroid normal Resp Effort & Inspection: normal respiratory effort Auscultation: clear to auscultation bilaterally Percussion: percussion normal Cardio Jugular venous distension: no JVD Palpation: normal PMI Rate: regular rate Rhythm: regular rhythm Heart sounds: S1 normal heart sound present and S2 normal heart sound present GI Inspection: Yes normal to inspection Palpation (GI): No hepatosplenomegaly present Skin General skin exam: no rashes or lesions noted Extrem General: Yes no clubbing, cyanosis or edema Coding Level of Care Code Est Pt Level 3 (98822) Diagnoses Hyperlipidemia E78.5 Assessment & Plan Assessment & Plan (1) Hyperlipidemia: Code(s): E78.5 - Hyperlipidemia, unspecified Category: Medical Plan: stable; same rx Medications: Refilled ketoconazole 200 mg PO DAILY 60 tabs 1RF dulaglutide (Trulicity) 3 mg (0.5 mL) subcut QWEEK 28 days 2 mL 2RF
[2024-06-20 11:33] VITALS: BP 130/62; PULSE 91; O2SAT 94; BMI 37.3
== END 2024-06-20 11:53 | disposition home or self-care (01) ==
PROVIDERS: PCP Internal Medicine; Visit Provider Internal Medicine
DX: E78.5 Hyperlipidemia, unspecified (principal)

== ENCOUNTER → 2024-06-20 11:27 | Outpatient (BNVA) | payer OTHER, SELFPAY | PROVIDERS: PCP Internal Medicine; Visit Provider Internal Medicine | CPT/HCPCS: 96127; 99212 ==

== ENCOUNTER 2024-07-28 09:48 | Outpatient (AMB) | payer OTHER, SELFPAY ==
--- NOTE | 2024-07-28 09:55 | A.OFFPC_ITS ---
Vital Signs 07/28/24 09:56 Height 5 ft 8 in Weight 245 lb 4 oz BMI 37.3 BP 118/60 Blood Pressure Location Lt brachial Position Sitting Pulse 96 Pulse Source Pulse Oximeter Temp 97.5 F Temp Source Temporal Artery Scan Pulse Oximetry (%) 93 Oxygen Delivery Method Room Air Intake Visit Reasons: Annual exam Intake Note: Patient is here today for a physical. Household Refrigerator Mechanic Required: No Congregational Care Pastor: Not Required per policy Accompanied by: Self / Same As Patient Allergies lisinopril Adverse Reaction (Severe, Verified 07/28/24 09:56) Angioedema Medication List - Last Reconciled 07/31/24 by John Teran MD albuterol sulfate 90 mcg/actuation 2 puffs inhalation Q4-6H PRN atorvastatin 10 mg PO BEDTIME blood sugar diagnostic (FreeStyle Lite Strips) 3 times a day, E11.65 blood-glucose meter (FreeStyle Lite Meter kit) 3 times a day, E11.65 citalopram 20 mg PO DAILY dulaglutide (Trulicity) 3 mg (0.5 mL) subcut QWEEK 28 days efinaconazole 10% (Jublia) 1 appl topical DAILY 48 weeks famotidine (Pepcid) 20 mg PO DAILY furosemide 20 mg PO DAILY glipizide 10 mg PO DAILY 90 days insulin degludec (Tresiba FlexTouch U-100 insulin) 10 units (0.1 mL) subcut BEDTIME 30 days ketoconazole 200 mg PO DAILY lancets (FreeStyle Lancets) 3 times a day, E11.65 metformin 1,000 mg (2 x 500 mg) PO BID 90 days metoprolol tartrate 25 mg PO BID pen needle, diabetic (BD Leonora 2nd Gen Pen Needle) once a day sertraline 100 mg PO DAILY sildenafil (Viagra) 50 mg PO DAILY PRN zolpidem 10 mg PO BEDTIME PRN Tobacco use date assessed: 07/28/24 Dental Screening Dental Screen Date: 06/20/24 HPI Annual exam HPI Details hyperlipidemia and DM; compliant with [facility] Medical History Obesity due to excess calories Diabetic neuropathy associated with type 2 diabetes mellitus Obesity (BMI 30-39.9) Hypertension Diabetes type 2, uncontrolled Diabetes mellitus Surgical History History of lumbar surgery History of circumcision Family History Father Diabetes Hypertension Heart disease Mother Diabetes Hypertension Heart disease Social History Household Members: Significant Other Housing: House Alcohol intake: current Alcohol type: beer Patient Tobacco Use Status: Never used Tobacco e-Cigarette/Vaping Use: Never Used Second Hand Smoke Exposure: No service: No Current occupational status: employed Cognitive needs: No Hearing needs: No Vision needs: No Questionnaire Thrive Questionnaire Date Thrive assessed: 06/20/24 I am a: Patient What is your living situation today?: I have a steady place to live Within the past 12 months, did the food you bought not last and you didn't have the money to get more?: I choose not to answer this question Within the past 12 months, did you worry whether your food would run out before you got money to buy more?: I choose not to answer this question Do you have trouble paying for medicines?: I choose not to answer this question Do you have trouble getting transportation to medical appointments?: I choose not to answer this question Do you have trouble paying your heating and electricity bill?: I choose not to answer this question Do you have trouble taking care of your child, family member or friend?: I choose not to answer this question Do you have trouble with day-to-day activities such as bathing, preparing meals, shopping, managing finances, etc.?: I choose not to answer this question Are you currently unemployed and looking for a job?: I choose not to answer this question Are you interested in more education?: I choose not to answer this question Please select the resources that you would like help with: None Currently or been in a relationship where the following occur: I choose not to answer THRIVE Score: 0 AUDIT C Alcohol Use Questionnaire (AUDIT-C) 1. How often do you have a drink containing alcohol?: Never Total Score: 0 SHAHLA-7 AMB Questionnaire SHAHLA-7 Date SHAHLA - 7 assessed: 06/20/24 Feeling nervous, anxious, or on edge: 0 = Not at all Not being able to stop or control worryin = Not at all Worrying too much about different things: 0 = Not at all Trouble relaxin = Not at all Being so restless that it is hard to sit still: 0 = Not at all Becoming easily annoyed or irritable: 0 = Not at all Feeling afraid as if something awful might happen: 0 = Not at all Total SHAHLA-7 score (0-4 normal; 5-9 mild; 10-14 moderate; 15-21 severe): 0 Source: Developed by Drs. Joel Jacob, Tricia Drake, Brian Beavers and colleagues, with an educational ayad from [employer]. Review of Systems Const Denies chills, Denies fatigue, Denies headache(s) and Denies weight loss Eyes Denies change in vision, Denies diplopia and Denies eye pain ENT Denies vertigo, Denies dizziness, Denies headache(s) and Denies nasal discharge Card Denies chest pain, Denies rapid heart rate and Denies dyspnea on exertion Resp Denies chest congestion, Denies cough, Denies pain with cough and Denies dyspnea on exertion GI Denies abdominal pain, Denies hematochezia and Denies change in bowel habits Musc Denies myalgias, Denies arthralgias and Denies joint swelling Skin/Breast Denies lesions and Denies unusual bruising Neuro Denies vertigo, Denies dizziness, Denies headache(s) and Denies focal weakness Endo Denies fatigue Physical exam (Primary Care) Vital Signs: Last Vital Signs Temp 97.5 F 07/28/24 09:56 Pulse 96 07/28/24 09:56 BP 118/60 07/28/24 09:56 Pulse Ox 93 07/28/24 09:56 Oxygen Delivery Method Room Air 07/28/24 09:56 BMI result Body Mass Index 37.3 Tobacco/Smoking Status: Tobacco use Status Tobacco use date assessed 07/28/24 07/28/24 09:59 Patient Tobacco Use Status Never used Tobacco 07/28/24 09:59 e-Cigarette/Vaping Use Never Used 07/28/24 09:59 Thrive Assessment: Date of Thrive Assessment Date Thrive assessed 06/20/24 07/28/24 09:59 Currently or been in a relationship where the following occur: I choose not to answer Const General: cooperative, healthy appearing and no acute distress Orientation/consciousness: oriented to person, oriented to place and oriented to time HENMT Head: Yes normal to inspection, Yes normocephalic and Yes atraumatic Mouth: Normal oral and palatal mucosa present and tongue normal Throat: Yes posterior oropharynx normal and Yes uvula midline Eyes General: appearance normal, both eyes and all related structures Neck Neck: Yes normal visual inspection, Yes full ROM and Yes no lymphadenopathy Thyroid: Thyroid normal Carotids: normal carotid upstroke Chest Chest palpation & inspection: normal inspection of the chest Resp Effort & Inspection: normal respiratory effort and able to speak in complete sentences Auscultation: clear to auscultation bilaterally Cardio Jugular venous distension: no JVD Palpation: normal PMI Rate: regular rate Rhythm: regular rhythm Heart sounds: S1 normal heart sound present and S2 normal heart sound present GI Inspection: Yes normal to inspection Palpation (GI): Soft to palpation and No hepatosplenomegaly present Auscultation: normal bowel sounds General: Yes no CVA tenderness Back/Spine/Pelvis Back: no CVA tenderness Skin General skin exam: no rashes or lesions noted Neuro General: oriented to person, oriented to place and oriented to time Extrem General: Yes normal to inspection and Yes full ROM Coding Level of Care Code Est Pt Prev Care 40-64y(80122) Diagnoses Physical exam Z00.00 Diabetes mellitus E11.9 Hyperlipidemia E78.5 Assessment & Plan Assessment & Plan (1) Physical exam: Code(s): Z00.00 - Encounter for general adult medical examination without abnormal findings Category: Medical Plan: stable; do labs (2) Diabetes mellitus: Code(s): E11.9 - Type 2 diabetes mellitus without complications Category: Medical Plan: improve diet; same rx (3) Hyperlipidemia: Code(s): E78.5 - Hyperlipidemia, unspecified Category: Medical Plan: same rx
[2024-07-28 09:56] VITALS: BP 118/60; PULSE 96; TEMP 36.4; O2SAT 93; BMI 37.3
--- OUTSIDE RECORDS SUMMARY | 2024-07-28 10:19 | XMS_ITS | Patient Health Record ---
Author Organization [facility] Address [address] [place] [address] Care Team Providers Care Horologist Apprentice Name Role Phone Parul KENDRICK, John Primary Care Provider Nafisaa Joel Bridges Unavailable [phone] REASON FOR REFERRAL No Information SOCIAL HISTORY Sex Assigned At : Social History Observation Description Sex Assigned At Unknown Encounters Encounter Location Date Provider Diagnosis [facility] [address] [place] [address] 06/20/2024 Joel Holder [facility] [address] [place] [address] 06/20/2024 Joel Holder PLAN OF TREATMENT No Information Insurance Providers Payer Name Payer Address Payer Phone Subscriber Number Group Number Insured Name Patient Relationship to Insured Coverage Start Date Coverage End Date [facility] [address] [place] [address] [id number] YESIKA RIVAS Self - patient is the insured
--- OUTSIDE RECORDS SUMMARY | 2024-07-28 10:19 | XMS_ITS ---
Author Organization [facility] Address [address] [place] [id number] Care Team Providers Care Communications Supervisor Name Role Phone John Teran MD Primary Care Provider Unavaila Joel Bridges Unavailable [phone] Encounters Encounter Location Date Provider Diagnosis [facility] [address] [place] [address] 06/20/2024 Joel Holder PLAN OF TREATMENT No Information
== END 2024-07-28 11:06 | disposition home or self-care (01) ==
PROVIDERS: PCP Internal Medicine; Visit Provider Internal Medicine
DX: Z00.00 Encounter for general adult medical examination without abnormal findings (principal); E11.9 Type 2 diabetes mellitus without complications; E78.5 Hyperlipidemia, unspecified

== ENCOUNTER → 2024-07-28 09:48 | Outpatient (BNVA) | payer OTHER, SELFPAY | PROVIDERS: PCP Internal Medicine; Visit Provider Internal Medicine | DX: Z00.00 Encounter for general adult medical examination without abnormal findings (principal); E78.5 Hyperlipidemia, unspecified; E11.9 Type 2 diabetes mellitus without complications | CPT/HCPCS: 99396 ==

== ENCOUNTER 2024-10-26 09:08 | Outpatient (AMB) | payer OTHER, SELFPAY ==
--- NOTE | 2024-10-26 09:15 | A.OFFPC_ITS ---
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 Required: No Accompanied by: Self / Same As Patient Allergies lisinopril Adverse Reaction (Severe, Verified 10/26/24 09:38) Angioedema Medication List - Last Reconciled 10/26/24 by Sandy Alfaro MD albuterol sulfate 90 mcg/actuation 2 puffs inhalation Q4-6H PRN atorvastatin 10 mg PO BEDTIME blood sugar diagnostic (FreeStyle Lite Strips) 3 times a day, E11.65 blood-glucose meter (FreeStyle Lite Meter kit) 3 times a day, E11.65 citalopram 20 mg PO DAILY dulaglutide (Trulicity) 3 mg (0.5 mL) subcut QWEEK 28 days efinaconazole 10% (Jublia) 1 appl topical DAILY 48 weeks famotidine (Pepcid) 20 mg PO DAILY furosemide 20 mg PO DAILY glipizide 10 mg PO DAILY 90 days insulin degludec (Tresiba FlexTouch U-100 insulin) 10 units (0.1 mL) subcut BEDTIME 30 days ketoconazole 200 mg PO DAILY lancets (FreeStyle Lancets) 3 times a day, E11.65 metformin 1,000 mg (2 x 500 mg) PO BID 90 days metoprolol tartrate 25 mg PO BID pen needle, diabetic (BD Leonora 2nd Gen Pen Needle) once a day sertraline 100 mg PO DAILY sildenafil (Viagra) 50 mg PO DAILY PRN zolpidem 10 mg PO BEDTIME PRN Tobacco use date assessed: 07/28/24 Dental Screening Dental Screen Date: 10/26/24 Did you have a dental visit in the last 12 months?: Yes Did you have a dental problem in the last 6 months where you did not have access to dental care?: No Was dental information given to patient?: Patient has dentist HPI HPI Comments History of Present Illness Details The patient is a 54-year-old male presenting with a follow-up for chronic condition management, primarily Type 2 Diabetes Mellitus. His blood glucose levels are well-controlled, as indicated by a recent HbA1c of 6.4%, with treatment involving Trulicity, Glipizide, Tresiba, and Metformin. Additionally, the patient's dyslipidemia appears managed effectively with Atorvastatin, as suggested by target LDL levels in recent tests. Anemia has been noted, though specific interventions or severity are not discussed, indicating ongoing monitoring. The patient also manages generalized anxiety disorder with depression using Citalopram and Sertraline, effectively controlling symptoms. Gastroesophageal reflux disease is reported, with Famotidine prescribed. The patient has a surgical history of back surgery and circumcision but has deferred a planned colonoscopy. Hypertension management appears effective, with normotensive readings and slight weight reduction noted during this visit. The patient denies smoking but consumes alcohol sporadically. Family history reveals both parents with diabetes, with the mother's condition under control without pharmacotherapy. [facility] Medical History (Updated 10/26/24 @ 12:05 by Sandy Alfaro MD) Diabetes mellitus with coincident hypertension Obesity due to excess calories Diabetic neuropathy associated with type 2 diabetes mellitus Obesity (BMI 30-39.9) Hypertension Diabetes type 2, uncontrolled Diabetes mellitus Surgical History History of lumbar surgery History of circumcision Family History Father Diabetes Hypertension Heart disease Mother Diabetes Hypertension Heart disease Social History (Updated 10/26/24 @ 09:45 by Sandy Alfaro MD) Household Members: Significant Other Housing: House Alcohol intake: current Alcohol intake frequency: holidays/special occasions only Alcohol type: beer Patient Tobacco Use Status: Never used Tobacco e-Cigarette/Vaping Use: Never Used Second Hand Smoke Exposure: No service: No Current occupational status: employed Cognitive needs: No Hearing needs: No Vision needs: No Questionnaire PHQ-9 Over the last 2 weeks, how often have you been bothered by any of the following problems? 1. Little interest or pleasure in doing things: not at all 2. Feeling down, depressed, or hopeless: not at all 3. Trouble falling or staying asleep, or sleeping too much: not at all 4. Feeling tired or having little energy: not at all 5. Poor appetite or overeating: not at all 6. Feeling bad about yourself - or that you are a failure or have let yourself or your family down: not at all 7. Trouble concentrating on things, such as reading the newspaper or watching television: not at all 8. Moving or speaking so slowly that other people could have noticed. Or the opposite - being so fidgety or restless that you have been moving around a lot more than usual: not at all 9. Thoughts that you would be better off or of hurting yourself in some way: not at all Total score: 0 Depression Screening Interpretation: Negative Depression Screening Done: Yes 08467 - PHQ-9 Billing: Yes Source: Developed by Drs. Joel Jacob, Tricia Drake, Brian Beavers and colleagues, with an educational ayad from [employer]. Thrive Questionnaire Date Thrive assessed: 10/26/24 I am a: Patient What is your living situation today?: I have a steady place to live Within the past 12 months, did the food you bought not last and you didn't have the money to get more?: I choose not to answer this question Within the past 12 months, did you worry whether your food would run out before you got money to buy more?: I choose not to answer this question Do you have trouble paying for medicines?: I choose not to answer this question Do you have trouble getting transportation to medical appointments?: I choose not to answer this question Do you have trouble paying your heating and electricity bill?: I choose not to answer this question Do you have trouble taking care of your child, family member or friend?: I choose not to answer this question Do you have trouble with day-to-day activities such as bathing, preparing meals, shopping, managing finances, etc.?: I choose not to answer this question Are you currently unemployed and looking for a job?: I choose not to answer this question Are you interested in more education?: I choose not to answer this question Please select the resources that you would like help with: None Currently or been in a relationship where the following occur: I choose not to answer THRIVE Score: 0 AUDIT C Alcohol Use Questionnaire (AUDIT-C) 1. How often do you have a drink containing alcohol?: Never Total Score: 0 Score Reviewed/Action Taken: No SHAHLA-7 AMB Questionnaire SHAHLA-7 Date SHAHLA - 7 assessed: 10/26/24 Feeling nervous, anxious, or on edge: 0 = Not at all Not being able to stop or control worryin = Not at all Worrying too much about different things: 0 = Not at all Trouble relaxin = Not at all Being so restless that it is hard to sit still: 0 = Not at all Becoming easily annoyed or irritable: 0 = Not at all Feeling afraid as if something awful might happen: 0 = Not at all Total SHAHLA-7 score (0-4 normal; 5-9 mild; 10-14 moderate; 15-21 severe): 0 Source: Developed by Drs. Joel Jacob, Tricia Drkae, Brian Beavers and colleagues, with an educational ayad from [employer]. SHAHLA-7 Assessment Billing SHAHLA-7 Assessment Tool: SHAHLA-7 Assessment 27758 Review of Systems Const All systems reviewed & are unremarkable except as noted in HPI and below Card Denies chest pain at rest, Denies chest pain with activity, Denies edema, Denies irregular heart rhythm, Denies claudication, Denies dyspnea, Denies dyspnea on exertion, Denies orthopnea, Denies paroxysmal nocturnal dyspnea and Denies slow heart rate Resp Denies cough, Denies dyspnea and Denies dyspnea on exertion GI Denies abdominal pain, Denies change in bowel habits, Denies excessive flatus, Denies nausea and Denies vomiting Physical exam (Primary Care) Vital Signs: Last Vital Signs BP 138/70 10/26/24 09:17 BMI result Body Mass Index 36.2 BMI Assessment/Plan discussion: High BMI High, discussed plan: lifestyle, weight reduction, dietary and physical activity Tobacco/Smoking Status: Tobacco use Status Tobacco use date assessed 07/28/24 10/26/24 09:24 Patient Tobacco Use Status Never used Tobacco 10/26/24 09:45 e-Cigarette/Vaping Use Never Used 10/26/24 09:45 PHQ-9: PHQ-9 Score PHQ-9: Total score 0 10/26/24 09:41 Depression Screening Interpretation: Negative Thrive Assessment: Date of Thrive Assessment Date Thrive assessed 10/26/24 10/26/24 09:24 Currently or been in a relationship where the following occur: I choose not to answer Resp Effort & Inspection: normal respiratory effort Auscultation: clear to auscultation bilaterally Cardio Jugular venous distension: no JVD Rate: regular rate Rhythm: regular rhythm Heart sounds: S1 normal heart sound present and S2 normal heart sound present Extrem General: Yes full ROM Psych Appearance: grossly normal Results AMB Hemoglobin A1c AMB Hemoglobin A1c 6.4 % Last Edit by FATEMEH Hutton on 10/26/24 09:2 8 Results Reviewed Results Reviewed: Laboratory Last Values Hgb A1c (Clinic) 6.4 % (4.0-6.0) H 10/26/24 09:15 Coding Level of Care Code Est Pt Level 4 (84460) Complex EM visit Add On G2211 Diagnoses Moderate asthma J45.909 Diabetes mellitus E11.9 Mild recurrent major depression F33.0 Hyperlipidemia LDL goal <70 E78.5 Essential hypertension I10 Additional Codes SHAHLA-7 Assessment Billing - SHAHLA-7 Assessment Tool: SHAHLA-7 Assessment 44259 ([id number]) PHQ-9 - 61051 - PHQ-9 Billing: Yes ([id number]) Time Spent (min) 23 Assessment & Plan Assessment & Plan (1) Moderate asthma: Code(s): J45.909 - Unspecified asthma, uncomplicated Category: Medical (2) Diabetes mellitus: Code(s): E11.9 - Type 2 diabetes mellitus without complications Category: Medical (3) Mild recurrent major depression: Code(s): F33.0 - Major depressive disorder, recurrent, mild Category: Medical (4) Hyperlipidemia LDL goal <70: Code(s): E78.5 - Hyperlipidemia, unspecified Category: Medical (5) Essential hypertension: Code(s): I10 - Essential (primary) hypertension Category: Medical Plan We will continue current diabetes management with Trulicity, Glipizide, Tresiba, and Metformin, given effective control of blood glucose levels. The dyslipidemia management with Atorvastatin is effective and will be maintained. Anemia will be monitored, with plans for further assessment in four months. Anxiety and depression are well-managed on Citalopram and Sertraline. Famotidine will be used for gastroesophageal reflux disease. The patient is recommended to schedule a colonoscopy and consider a tetanus vaccine in the future. The inhaler will remain available for nighttime dyspnea, and further management for onychomycosis is being pursued with alternatives to Ketoconazole. Patient was informed and verbally consented to the use of an ambient scribe for clinic note documentation during this visit. I discussed the importance of continuing current diabetes and dyslipidemia regimens given the effective control of these conditions. The patient agreed to regular monitoring of diabetes and agreed to reassess lipid levels periodically. Regarding anemia, I suggested further blood tests in four months to monitor progression. We discussed effective management of anxiety and depressive symptoms with Citalopram and Sertraline, and I reinforced the use of Famotidine for acid reflux control. I explained the necessity of potentially undergoing a colonoscopy and to consider tetanus vaccination, to which the patient was receptive. I advised on the use of medication and continued monitoring for symptoms related to onychomycosis, utilizing alternatives to the previously prescribed Ketoconazole. No further interventions were recommended for the cardiovascular management as current readings were within target goals, and I emphasized the significance of lifestyle modifications, including diet and exerc ise, in maintaining health parameters. Orders: Orders Vitamin D 25-OH Total 4 Months E55.9 - Vitamin D deficiency, unspecified AMB Hemoglobin A1c Today E11.9 - Type 2 diabetes mellitus without complications Complete Blood Count Auto Diff 4 Months D64.9 - Anemia, unspecified IRON PROFILE 4 Months D64.9 - Anemia, unspecified Vitamin B12 and Folate 4 Months E53.8 - Deficiency of other specified B group vitamins Microalbumin, Random (w Creat) 4 Months R80.9 - Proteinuria, unspecified Lipid Panel 4 Months E78.5 - Hyperlipidemia, unspecified Comprehensive Independence. Panel Fast 4 Months E11.9 - Type 2 diabetes mellitus without complications Referrals Open Access Screening Colonoscopy Referral Z12.12 - Encounter for screening for malignant neoplasm of rectum Medications: New umeclidinium-vilanterol 62.5-25 mcg/actuation (Anoro Ellipta) 1 inh inhalation DAILY 60 ea 1RF 60 days J45.909 - Unspecified asthma, uncomplicated Refilled ketoconazole 200 mg PO DAILY 60 tabs 1RF Patient Instructions: - Continue taking Trulicity, Glipizide, Tresiba, and Metformin as prescribed. - Take Atorvastatin and monitor cholesterol levels as planned. - Conduct follow-up blood tests in four months for anemia monitoring. - Continue Citalopram and Sertraline for anxiety and depression. - Take Famotidine for acid reflux. - Schedule a colonoscopy. - Consider tetanus vaccine during the next visit. - Use prescribed inhaler as needed for breathing difficulties. - Discuss alternative treatment for onychomycosis with the clinician. - Maintain regular check-ins to adjust care plan as needed.
[2024-10-26 09:17] VITALS: BP 138/70; BMI 36.2
--- OUTSIDE RECORDS SUMMARY | 2024-10-26 09:41 | XMS_ITS ---
Author Organization [facility] Address [address] [place] [phone] Care Team Providers Care Truck Driving Name Role Phone John Teran MD Primary Care Provider Unavaila Joel Bridges [phone] Encounters Encounter Location Date Provider Diagnosis [facility] [address] [place] [phone] 06/20/2024 Joel Holder Plan Of Treatment No Information Progress Notes * BRIANNE RIVASODOB:[birth year] (53 yo M)Acc No.[id number]:06/20/2024 Patient:?EVELYN YESIKA :1970???Age:53 Y???Sex:Male Address:[address] [place] [address] , [place], [address] * true * Date:? Generated for Jesús javier/Liliam/eTransmitting on:?10/26/2024 09:41 AM EDT
--- OUTSIDE RECORDS SUMMARY | 2024-10-26 09:41 | XMS_ITS | Patient Health Record ---
Author Organization [facility] Address [address] [place] [address] Care Team Providers Care Sql Etl Developer Name Role Phone Parul KENDRICK, John Primary Care Provider Unavaila Joel Bridges [phone] Reason For Referral No Information Encounters Encounter Location Date Provider Diagnosis [facility] [address] [place] [address] 06/20/2024 Joel Holder Plan Of Treatment No Information Insurance Providers Payer Name Payer Address Payer Phone Subscriber Number Group Number Insured Name Patient Relationship to Insured Coverage Start Date Coverage End Date [facility] [address] [place] [address] [id number] YESIKA RIVAS Self - patient is the insured
--- OUTSIDE RECORDS SUMMARY | 2024-10-26 09:41 | XMS_ITS ---
Author Organization [facility] Address [address] [place] [address] Care Team Providers Care Ranch Hand Livestock Name Role Phone Parul KENDRICK, John Primary Care Provider Unavaila Joel Bridges [phone] REASON FOR VISIT colon screening Encounters Encounter Location Date Provider Diagnosis [facility] [address] [place] [phone] 06/20/2024 Joel Holder Plan Of Treatment No Information Progress Notes * BRIANNE RIVASODOB:[birth year] (54 yo M)Acc No.[id number]:06/20/2024 Progress Notes Patient:?YESIKA RIVAS Provider:?Joel Holder MD :1970???Age:53 Y???Sex:Male Kaiden e:06/20/2024 Address:[address] [place], [place] [id number] Pcp:John Teran MD Subjective: * Chief Complaints: * ???1. Colon screening. * Medical History:? Objective: * Vitals:? Assessment: Plan: * Treatment: * * The named appointment provid er may or may not be the originator of this progress note, and it is not deemed complete until electronically signed by the appointment provider. Sign off status: Pending * Provider:?Joel Holder MD Date:? 025 Generated for Jesús javier/Liliam/eTransmitting on:?10/26/2024 09:41 AM EDT
== END 2024-10-26 09:48 | disposition home or self-care (01) ==
PROVIDERS: PCP Internal Medicine; Visit Provider Internal Medicine
DX: J45.909 Unspecified asthma, uncomplicated (principal); E11.9 Type 2 diabetes mellitus without complications; F33.0 Major depressive disorder, recurrent, mild; E78.5 Hyperlipidemia, unspecified; I10 Essential (primary) hypertension

== ENCOUNTER → 2024-10-26 09:08 | Outpatient (BNVA) | payer OTHER, SELFPAY | PROVIDERS: PCP Internal Medicine; Visit Provider Internal Medicine | DX: E11.9 Type 2 diabetes mellitus without complications (principal); J45.909 Unspecified asthma, uncomplicated; F33.0 Major depressive disorder, recurrent, mild; E78.5 Hyperlipidemia, unspecified; I10 Essential (primary) hypertension; E55.9 Vitamin D deficiency, unspecified; D64.9 Anemia, unspecified; E53.8 Deficiency of other specified B group vitamins; R80.9 Proteinuria, unspecified; Z79.84 Long term (current) use of oral hypoglycemic drugs; Z79.899 Other long term (current) drug therapy | CPT/HCPCS: 83036; 96127; 99212 ==

== ENCOUNTER 2025-02-15 22:29 | Emergency (ER) | payer MEDICARE, SELFPAY ==
--- OUTSIDE RECORDS SUMMARY | 2024-06-20 09:20 | XMS_ITS ---
Author Organization [facility] Address [address] [place] [phone] Care Team Providers Care Print Line Feeder Name Role Phone Parul KENDRICK, John Primary Care Provider Unavaila Joel Bridges [phone] REASON FOR VISIT colon screening Encounters Encounter Location Date Provider Diagnosis [facility] [address] [place] [phone] 06/20/2024 Joel Holder Plan Of Treatment No Information Progress Notes * BRIANNE RIVASODOB:[birth year] (54 yo M)Acc No.[id number]:06/20/2024 Progress Notes Patient: YESIKA JOHNSON Provider: Darya Holder MD :1970 A ge:53 Y S ex:Male Date:06/20/2024 Address:[address] [place], [place] [id number] Pcp:John Teran MD Subjective: * Chief Complaints: [...] 06/20/2024 Generated for Jesús javier/Liliam/Giovanyitting on: 0 02/16/2025 12:47 AM EDT
[2025-02-15 22:35] VITALS: BP 159/73; PULSE 108; RESP 20; TEMP 35.8; O2SAT 92; BMI 31.4
--- NOTE | 2025-02-15 22:56 | ED.ALLEREA ---
HPI - Allergic Reaction General Chief complaint: Allergic Reaction Stated complaint: allergic reaction Time Seen by Provider: 02/15/25 22:50 Source: patient Mode of arrival: ambulatory Limitations: no limitations History of Present Illness ED Provider: Armando [facility] HPI narrative: The patient is a 54-year-old male presenting to the ED for evaluation of swelling of his upper lip and shortness of breath which began shortly after eating a package of cookies at around 21:30. The patient reports this type of cookie is new to him, denies any known food allergies. The patient does report history of angioedema secondary to lisinopril in 2020. The patient denies associated wheezing, urticaria, or pruritus. Related Data Previous Rx's ?Medication ?Instructions ?Recorded pen needle, diabetic 32 gauge x #50 ea 09/01/22 (BD Leonora 2nd Gen Pen Needle) metoprolol tartrate 25 mg tablet 25 mg PO BID #180 tabs 01/26/23 blood sugar diagnostic (FreeStyle #100 ea 02/12/24 Lite Strips) blood-glucose meter (FreeStyle #1 ea 02/12/24 Lite Meter kit) efinaconazole 10 % topical 1 appl topical DAILY 48 weeks #4 mL 02/12/24 solution with applicator (RuffWireblWiziva) famotidine 20 mg tablet (Pepcid) 20 mg PO DAILY #4 tabs 02/12/24 furosemide 20 mg tablet 20 mg PO DAILY #90 tabs 02/12/24 lancets 28 gauge (FreeStyle #100 ea 02/12/24 Lancets) sildenafil 50 mg tablet (Viagra) 50 mg PO DAILY PRN sexual activity 02/12/24 #20 tabs citalopram 20 mg tablet 20 mg PO DAILY #90 tabs 02/15/24 sertraline 100 mg tablet 100 mg PO DAILY #90 tabs 02/15/24 zolpidem 10 mg tablet 10 mg PO BEDTIME PRN sleep #30 tabs 02/15/24 dulaglutide 3 mg/0.5 mL 3 mg (0.5 mL) subcut QWEEK 28 days 06/20/24 subcutaneous pen injector #2 mL ([facility]) glipizide 10 mg tablet 10 mg PO DAILY 90 days #90 tabs 07/24/24 metformin 500 mg tablet 1,000 mg (2 x 500 mg) PO BID 90 07/24/24 days #360 tabs albuterol sulfate 90 mcg/actuation 2 puff inhalation Q4-6H PRN 08/13/24 aerosol inhaler Shortness Of Breath #8.5 grams ketoconazole 200 mg tablet 200 mg PO DAILY #60 tabs 10/26/24 insulin degludec 100 unit/mL (3 10 unit (0.1 mL) subcut BEDTIME 30 11/22/24 mL) subcutaneous pen (Tresiba days #15 mL FlexTouch U-100 insulin) umeclidinium 62.5 mcg-vilanterol 1 inh inhalation DAILY 60 days #60 12/30/24 25 mcg/actuation powdr for ea inhalation (Anoro Ellipta) atorvastatin 10 mg tablet 10 mg PO BEDTIME #90 tabs 02/13/25 famotidine 20 mg tablet (Pepcid) 20 mg PO BID 5 days #10 tabs 02/16/25 prednisone 20 mg tablet 60 mg (3 x 20 mg) PO DAILY 5 days 02/16/25 #15 tabs Allergies Allergy/AdvReac Type Severity Reaction Status Date / Time lisinopril AdvReac Severe Angioedema Verified 02/15/25 22:43 Review of Systems Review of Systems: Yes all other systems are reviewed and are negative PMF Past Medical History Medical History (Updated 02/16/25 @ 01:17 by Armando Glez PA-C) Diabetes mellitus with coincident hypertension Obesity due to excess calories Diabetic neuropathy associated with type 2 diabetes mellitus Obesity (BMI 30-39.9) Hypertension Diabetes type 2, uncontrolled Diabetes mellitus Surgical History History of lumbar surgery History of circumcision Family History Family History Father Diabetes Hypertension Heart disease Mother Diabetes Hypertension Heart disease Social History Social History (Updated 10/26/24 @ 09:45 by Sandy Alfaro MD) Household Members: Significant Other Housing: House Alcohol intake: current Alcohol intake frequency: holidays/special occasions only Alcohol type: beer Patient Tobacco Use Status: Never used Tobacco e-Cigarette/Vaping Use: Never Used Second Hand Smoke Exposure: No Advance Directives: No service: No Current occupational status: employed Cognitive needs: No Hearing needs: No Vision needs: No Physical Exam ED Vital Signs: Vital Signs - 24 hr 02/15/25 22:35 02/16/25 00:22 Temperature 96.5 F L Pulse Rate 108 H 99 Respiratory Rate 20 20 Blood Pressure 159/73 H Pulse Oximetry 92 97 Oxygen Delivery Method Room Air Room Air BMI result Body Mass Index 31.4 CONSTITUTIONAL: The patient appears non-toxic, well nourished and in no acute distress. Vital signs as documented. HEAD: Atraumatic, normocephalic. EYES: EOMs grossly intact, pupils equal, conjunctiva clear, no exudate. ENT: Nares patent, no discharge. Mild swelling noted of the upper lip, no lingular swelling, no submental fullness or swelling, no trismus, posterior pharynx shows midline nonedematous uvula, no peritonsillar or tonsillar swelling, no tonsillar exudate. Airway patent, no audible stridor, visible mucosa is pink and moist without noted lesions. NECK: Trachea is midline, no obvious masses or gross abnormalities. CHEST: Symmetric movement, normal appearance. LUNGS: LS present and CTAB, no w/r/r. Non-labored work of breathing. CARDIAC: Regular Rhythm, S1/S2 appreciated, no murmurs, rubs or gallops. ABDOMEN: Abdomen soft and non-tender x4 quadrants, no palpable masses or organomegaly. : Deferred. EXTREMITIES: Normal tone, moves all extremities spontaneously without reported pain. No obvious acute injury or deformity noted. NEURO: Alert and oriented x3, CN II-XII appear grossly intact. Cerebellar Functioning grossly intact. No obvious sensory or motor deficits. Speech clear and appropriate. PSYCH: normal affect, appropriate eye contact, fluid speech, with appropriate response to questioning. No reported suicidality or homicidality. SKIN: Warm, dry, color appropriate, normal turgor. No rashes noted, specifically no urticarial rash, no evidence of excoriation. Medications Administered Discontinued Medications Generic Name Dose Route Start Last Admin Trade Name Freq PRN Reason Stop Dose Admin Diphenhydramine HCl 25 mg 02/15/25 22:50 02/15/25 22:58 Diphenhydramine Hcl 50 Mg/Ml Vial IVPUSH 02/15/25 22:51 25 mg ONCE ONE Administration Famotidine 20 mg 02/15/25 22:50 02/15/25 22:58 Famotidine/Pf 20 Mg/2 Ml Vial IVPUSH 02/15/25 22:51 20 mg ONCE ONE Administration Methylprednisolone Sodium Succinate 125 mg 02/15/25 22:50 02/15/25 22:57 Methylprednisolone Sod Succ 125 Mg/2 Ml Vial IVPUSH 02/15/25 22:51 125 mg ONCE ONE Administration Medical Decision Making Medical Decision Making [facility] Narrative: 10:57 PM 02/15/2025 (Vito [facility]): The patient is a 54-year-old male presenting to the ED for evaluation of swelling of his upper lip and shortness of breath which began shortly after eating a package of cookies at around 21:30. The patient reports this type of cookie is new to him, denies any known food allergies. The patient does report history of angioedema secondary to lisinopril in 2020. The patient denies associated wheezing, urticaria, or pruritus. In the ED patient's exam reveals mild swelling of the upper lip, no swelling or fullness of the submental space, no lingular or posterior pharyngeal edema, no pooling secretions, trismus, or dysphagia. Posterior pharynx is unremarkable. Lungs are clear to auscultation bilaterally. Per chart review the patient had a angioedema reaction while taking lisinopril in 2020, however also experienced a episode of angioedema in 2022 while not taking lisinopril which presented similarly to this evening's presentation. At that time patient responded well to steroids, Benadryl, and Pepcid. We will obtain basic laboratory evaluation. Patient will be treated again with Solu-Medrol, Pepcid, and Benadryl. Pending improvement symptoms patient will likely be stable for discharge home with steroid burst. Pending no improvement in symptoms we will consider adjunctive therapy for angioedema. 1:14 AM 02/16/2025 ([facility]): Patient's symptoms have improved, patient is requesting discharge home, we will discharge with Pepcid and prednisone for 5 days. Differential Diagnosis Anaphylaxis, allergic reaction, angioedema, localized swelling Admission/Observation Consideration of admission/observation: Escalation of care including admission/observation considered Lab Data 02/15/25 22:55 02/15/25 22:55 Labs: Lab Results 02/15/25 Range/Units 22:55 WBC 4.3 L (4.8-10.8) X10*3/uL RBC 4.20 L (4.60-5.80) X10*6/uL Hgb 11.3 L (14.0-18.0) g/dl Hct 35.6 L (42.0-52.0) % MCV 84.8 (80.0-98.0) fL MCH 26.9 L (27.0-33.0) pg MCHC 31.7 (31.0-36.0) g/dl RDW 15.6 (11.0-16.0) % Plt Count 88 L (160-400) X10*3/uL MPV 11.4 (9.4-12.4) fL Immature Gran % (Auto) 0.2 (0.0-0.4) % Neut % (Auto) 56.1 (45-73) % Lymph % (Auto) 24.4 (20-40) % [place] % (Auto) 12.2 H (2-11) % Eos % (Auto) 5.9 H (0-4) % Baso % (Auto) 1.2 (0-2) % Lymph # (Auto) 1.0 L (1.2-4.9) X10*3/uL [place] # (Auto) 0.5 (0.1-1.2) X10*3/uL Eos # (Auto) 0.3 (0.0-0.4) X10*3/uL Baso # (Auto) 0.1 (0.0-0.2) X10*3/uL Abs Immat Gran (auto) 0.01 (0.00-0.03) X10*3/uL Absolute Neuts (auto) 2.4 (2.0-8.3) x10*3/uL Absolute Nucleated RBC 0.000 (0.0-0.012) X10*3/uL Nucleated RBC % (auto) 0.0 (0.0-0.2) /100WBC ESR 31 H (0-15) MM/HR Sodium 136 (135-145) mmol/L Potassium 3.9 (3.3-5.1) mmol/L Chloride 97 (96-108) mmol/L Carbon Dioxide 28 (22-29) mmol/L Anion Gap 15 (12-20) BUN 6 L (9-16) mg/dL Creatinine 0.68 (0.5-1.4) mg/dL Estim Creat Clear Calc 139.0 Estimated GFR > 60 Random Glucose 257 H (60-115) mg/dL Calcium 8.3 L D (8.4-10.2) mg/dL Total Bilirubin 1.8 H (0.0-1.0) mg/dL AST 78 H (5-37) U/L ALT 30 (0-40) U/L Alkaline Phosphatase 222 H (39-117) U/L C-Reactive Protein 1.13 H (< or = 0.50) mg/dL Total Protein 7.9 (6.5-8.0) g/dL Albumin 3.0 L (3.5-5.0) g/dL External Record Review External record reviewed: Outpatient record Discharge Plan Discharge Clinical Impression: Angioedema Patient Disposition: Home, Self-Care Instructions: Angioedema (ED) Additional Instructions: Thank you for choosing [facility] Emergency Department for your care today. Thankfully your symptoms have improved following administration of antihistamine medications and steroids in the ED. At this time there is no indication for admission to the hospital or continued ED observation, and it is safe to discharge you home. Please continue taking prednisone daily and Pepcid twice a day as prescribed for the next 5 days. You may take Benadryl as needed for any additional symptoms. Please follow up with your primary care physician for re-evaluation, additional management of your symptoms, and continued preventative care. If you do not have a primary care physician, please call the [facility] at [phone] to establish a new primary care physician. While waiting to establish your new primary care physician, you can call our [facility] at [phone] for non-emergency needs. Please return to the emergency department if you develop a severe or sudden change in your symptoms, difficulty breathing, high-pitched breathing, difficulty swallowing, swelling of your tongue or throat, a fever over 100.4 that does not improve with Tylenol or Ibuprofen, recurrent vomiting, or any other new or worsening symptoms or concerns. Prescriptions: New prednisone 20 mg tablet 60 mg PO DAILY 5 Days Qty: 15 0RF famotidine [Pepcid] 20 mg tablet 20 mg PO BID 5 Days Qty: 10 0RF No Action (DME) pen needle, diabetic [BD Leonora 2nd Gen Pen Needle] 32 gauge x 5/32 needle See Rx Instructions .ROUTE .MEDSUPPLY Qty: 50 4RF Rx Instructions: once a day (DME) FreeStyle Lite Strips Strip See Rx Instructions .ROUTE .MEDSUPPLY Qty: 100 11RF Rx Instructions: 3 times a day, E11.65 (DME) blood-glucose meter [FreeStyle Lite Meter] Kit See Rx Instructions .ROUTE .MEDSUPPLY Qty: 1 0RF Rx Instructions: 3 times a day, E11.65 Jublia 10 % solution with applicator 1 appl topical DAILY 336 Days Qty: 4 1RF famotidine [Pepcid] 20 mg tablet 20 mg PO DAILY Qty: 4 0RF furosemide 20 mg tablet 20 mg PO DAILY Qty: 90 8RF (DME) lancets [FreeStyle Lancets] 28 gauge misc See Rx Instructions .ROUTE .MEDSUPPLY Qty: 100 6RF Rx Instructions: 3 times a day, E11.65 sildenafil [Viagra] 50 mg tablet 50 mg PO DAILY PRN (Reason: sexual activity) Qty: 20 3RF Rx Instructions: administer 30 minutes to 4 hours before activity citalopram 20 mg tablet 20 mg PO DAILY Qty: 90 8RF sertraline 100 mg tablet 100 mg PO DAILY Qty: 90 0RF zolpidem 10 mg tablet 10 mg PO BEDTIME PRN (Reason: sleep) Qty: 30 0RF metformin 500 mg tablet 1,000 mg PO BID 90 Days Qty: 360 3RF glipizide 10 mg tablet 10 mg PO DAILY 90 Days Qty: 90 1RF Rx Instructions: One tablet before breakfast albuterol sulfate 90 mcg/actuation HFA aerosol inhaler 2 puff inhalation Q4-6H PRN (Reason: Shortness Of Breath) Qty: 8.5 2RF insulin degludec [Tresiba FlexTouch U-100] 100 unit/mL (3 mL) insulin pen 10 unit subcut BEDTIME 30 Days Qty: 15 3RF Anoro Ellipta 62.5-25 mcg/actuation blister with device 1 inh inhalation DAILY 60 Days Qty: 60 1RF atorvastatin 10 mg tablet 10 mg PO BEDTIME Qty: 90 3RF metoprolol tartrate 25 mg tablet 25 mg PO BID Qty: 180 8RF Trulicity 3 mg/0.5 mL pen injector 3 mg subcut QWEEK 28 Days Qty: 2 2RF ketoconazole 200 mg tablet 200 mg PO DAILY Qty: 60 1RF Referrals: Sandy Carpio MD [Primary Care Provider, Internal Medicine] Clinical Impression: Angioedema Print Language: Frisian
[2025-02-15 22:59] LABS: MANUAL DIFF FLAG NO
[2025-02-15 23:01] LABS: Hematocrit 35.6 % (42.0-52.0); Hemoglobin 11.3 g/dl (14.0-18.0); Imm Gran Abs Auto 0.01 X10*3/uL (0.00-0.03); Imm Gran Pct Auto 0.2 % (0.0-0.4); Lymphocytes Absolute Auto 1.0 X10*3/uL (1.2-4.9); Mean Corpuscular HGB Conc 31.7 g/dl (31.0-36.0); Mean Corpuscular Hemoglobin 26.9 pg (27.0-33.0); Mean Corpuscular Volume 84.8 fL (80.0-98.0); NRBC Abs Auto 0.000 X10*3/uL (0.0-0.012); NRBC Pct Auto 0.0 /100WBC (0.0-0.2); Red Blood Count 4.20 X10*6/uL (4.60-5.80); White Blood Count 4.3 X10*3/uL (4.8-10.8)
--- NOTE | 2025-02-15 23:01 | PC.NURSE ---
provider at bedside during triage, pt medicated per MAR, respirations even and unlabored, 02 at 96% room air
[2025-02-15 23:16] LABS: Alanine Aminotransferase 30 U/L (0-40); Albumin Level 3.0 g/dL (3.5-5.0); Alkaline Phosphatase 222 U/L (39-117); Anion Gap 15 (12-20); Aspartate Amino Transferase 78 U/L (5-37); Blood Urea Nitrogen 6 mg/dL (9-16); Calcium 8.3 mg/dL (8.4-10.2); Carbon Dioxide 28 mmol/L (22-29); Chloride 97 mmol/L (96-108); Creatinine Clr Calc Pharmacy 139.0; Estimated Glomerular Filt Rate > 60; Potassium 3.9 mmol/L (3.3-5.1); Sodium 136 mmol/L (135-145); Total Protein 7.9 g/dL (6.5-8.0)
[2025-02-15 23:33] LABS: Platelet Count 88 X10*3/uL (160-400)
[2025-02-16 00:22] VITALS: PULSE 99; RESP 20; O2SAT 97
--- OUTSIDE RECORDS SUMMARY | 2025-02-16 00:48 | XMS_ITS | Patient Health Record ---
Author Organization [facility] Address [address] [place] [address] Care Team Providers Care Group Care Worker Name Role Phone Parul KENDRICK, John Primary Care Provider Unavaila Joel Bridges [phone] Reason For Referral No Information Encounters Encounter Location Date Provider Diagnosis [facility] [address] [place] [address] 06/20/2024 Joel Holder Plan Of Treatment No Information Insurance Providers Payer Name Payer Address Payer Phone Subscriber Number Group Number Insured Name Patient Relationship to Insured Coverage Start Date Coverage End Date [facility] [address] [place] [phone] [id number] YESIKA RIVAS Self - patient is the insured
[2025-02-16 01:41] VITALS: BP 154/83; PULSE 95; RESP 20; TEMP 36.7; O2SAT 95
== END 2025-02-16 01:42 | disposition home or self-care (01) ==
PROVIDERS: Physician Assistant; Emergency Provider Emergency Medicine; PCP Internal Medicine
DX: T78.3XXA Angioneurotic edema, initial encounter (principal); R06.02 Shortness of breath; E11.9 Type 2 diabetes mellitus without complications; Z79.899 Other long term (current) drug therapy; Z79.85 Long-term (current) use of injectable non-insulin antidiabetic drugs
CPT/HCPCS: 36415; 80053; 85025; 85652; 86140; 96374; 96375; 99284; J1200; J1308; J2919

== ENCOUNTER 2025-02-17 07:56 | Emergency (ER) | payer MEDICARE, SELFPAY ==
--- OUTSIDE RECORDS SUMMARY | 2024-06-20 09:20 | XMS_ITS ---
Author Organization [facility] Address [address] [place] [phone] Care Team Providers Care Orthopaedic Surgeon Name Role Phone Parul KENDRICK, John Primary Care Provider Unavaila Joel Bridges [phone] REASON FOR VISIT colon screening Encounters Encounter Location Date Provider Diagnosis [facility] [address] [place] [phone] 06/20/2024 Joel Holder Plan Of Treatment No Information Progress Notes * BRIANNE RIVASODOB:[birth year] (54 yo M)Acc No.[id number]:06/20/2024 Progress Notes Patient: YESIKA JOHNSON Provider: Darya Holder MD :1970 A ge:53 Y S ex:Male Date:06/20/2024 Address:[address] [place], [place] [phone] Pcp:John Teran MD Subjective: * Chief Complaints: [...] 06/20/2024 Generated for Jesús javier/Liliam/Giovanyitting on: 0 02/17/2025 08:38 AM EDT
[2025-02-17 08:10] VITALS: BP 146/79; PULSE 112; RESP 17; TEMP 36.8; O2SAT 94; BMI 36.2
--- NOTE | 2025-02-17 08:12 | ED.GENADULT ---
HPI - General Adult General Chief complaint: Allergic Reaction Stated complaint: Bottom lip tongue Swollen Time Seen by Provider: 02/17/25 08:07 Source: patient and family Mode of arrival: ambulatory Limitations: no limitations History of Present Illness HPI narrative: This is a 52 old male hx of obesity, hypertension, diabetes, depression, HLD who presents to the emergency department for evaluation for evaluation swelling to his lower lip, tongue and difficulty breathing. States that he awoke this morning with this swelling. He reports a history of angioedema yesterday because of a cookies , and lisinopril 2 years ago, he denies taking this medication any longer. He denies any other new medications or new foods. Additionally denies any new detergents soaps or facial products. He denies any chest pain, shortness of breath, difficulty breathing. Related Data Previous Rx's ?Medication ?Instructions ?Recorded pen needle, diabetic 32 gauge x #50 ea 09/01/22 (BD Leonora 2nd Gen Pen Needle) metoprolol tartrate 25 mg tablet 25 mg PO BID #180 tabs 01/26/23 blood sugar diagnostic (FreeStyle #100 ea 02/12/24 Lite Strips) blood-glucose meter (FreeStyle #1 ea 02/12/24 Lite Meter kit) efinaconazole 10 % topical 1 appl topical DAILY 48 weeks #4 mL 02/12/24 solution with applicator (Alondra) famotidine 20 mg tablet (Pepcid) 20 mg PO DAILY #4 tabs 02/12/24 furosemide 20 mg tablet 20 mg PO DAILY #90 tabs 02/12/24 lancets 28 gauge (FreeStyle #100 ea 02/12/24 Lancets) sildenafil 50 mg tablet (Viagra) 50 mg PO DAILY PRN sexual activity 02/12/24 #20 tabs citalopram 20 mg tablet 20 mg PO DAILY #90 tabs 02/15/24 sertraline 100 mg tablet 100 mg PO DAILY #90 tabs 02/15/24 zolpidem 10 mg tablet 10 mg PO BEDTIME PRN sleep #30 tabs 02/15/24 dulaglutide 3 mg/0.5 mL 3 mg (0.5 mL) subcut QWEEK 28 days 06/20/24 subcutaneous [facility] glipizide 10 mg tablet 10 mg PO DAILY 90 days #90 tabs 07/24/24 metformin 500 mg tablet 1,000 mg (2 x 500 mg) PO BID 90 07/24/24 days #360 tabs albuterol sulfate 90 mcg/actuation 2 puff inhalation Q4-6H PRN 08/13/24 aerosol inhaler Shortness Of Breath #8.5 grams ketoconazole 200 mg tablet 200 mg PO DAILY #60 tabs 10/26/24 insulin degludec 100 unit/mL (3 10 unit (0.1 mL) subcut BEDTIME 30 11/22/24 mL) subcutaneous pen (Tresiba days #15 mL FlexTouch U-100 insulin) umeclidinium 62.5 mcg-vilanterol 1 inh inhalation DAILY 60 days #60 12/30/24 25 mcg/actuation powdr for ea inhalation (Anoro Ellipta) atorvastatin 10 mg tablet 10 mg PO BEDTIME #90 tabs 02/13/25 famotidine 20 mg tablet (Pepcid) 20 mg PO BID 5 days #10 tabs 02/16/25 prednisone 20 mg tablet 60 mg (3 x 20 mg) PO DAILY 5 days 02/16/25 #15 tabs epinephrine 0.3 mg/0.3 mL 0.3 mg (0.3 mL) IM Q4H PRN 02/17/25 injection, auto-injector (EpiPen anaphylaxis #2 ea 2-Duc) Allergies Allergy/AdvReac Type Severity Reaction Status Date / Time lisinopril AdvReac Severe Angioedema Verified 02/17/25 08:11 Review of Systems Review of Systems: Yes all other systems are reviewed and are negative PMFSH Past Medical History Attestation statement: The following information was validated with the patient. Source: old records reviewed and nursing notes reviewed Medical History Diabetes mellitus with coincident hypertension Obesity due to excess calories Diabetic neuropathy associated with type 2 diabetes mellitus Obesity (BMI 30-39.9) Hypertension Diabetes type 2, uncontrolled Diabetes mellitus Surgical History History of lumbar surgery History of circumcision Family History Family History Father Diabetes Hypertension Heart disease Mother Diabetes Hypertension Heart disease Social History Social History Household Members: Significant Other Housing: House Alcohol intake: current Alcohol intake frequency: holidays/special occasions only Alcohol type: beer Patient Tobacco Use Status: Never used Tobacco e-Cigarette/Vaping Use: Never Used Second Hand Smoke Exposure: No Advance Directives: No Advance Directives Information Provided: Yes Do you have a plan to hurt others: No Plan service: No Current occupational status: employed Cognitive needs: No Hearing needs: No Vision needs: No Physical Exam ED Exam Exam: Appearance: Alert.? Oriented X3.? No acute distress.? Head: Normocephalic, atraumatic, no step-offs or deformities Eyes: Pupils equal, round and reactive to light.? ENT: + swelling/edema noted to lower lip, tongue and mild swelling to the uvula. Patient is speaking in full sentences controlling secretions Neck: Normal inspection.? Neck supple.? CVS: Normal heart rate and rhythm.? Pulses normal.? Respiratory: No respiratory distress.? Breath sounds normal.? Abdomen: Soft and nontender.? Skin: Skin warm and dry.? Normal skin color.? Normal skin turgor.? Extremities: No lower extremity edema.? No calf ttp. 5/5 strength to bilateral upper and lower extremities Back: No midline tenderness, no C-spine tenderness, full range of motion, no CVA tenderness bilaterally Neuro: Oriented X 3.? No motor deficit.? No sensory deficit. CN 2-12 intact Vital Signs: Vital Signs - 24 hr 02/17/25 08:10 02/17/25 08:46 02/17/25 10:01 Temperature 98.3 F Pulse Rate 112 H 97 102 H Respiratory Rate 17 11 L Blood Pressure 146/79 H 146/79 H 148/86 H Pulse Oximetry 94 95 Oxygen Delivery Method Room Air Room Air 02/17/25 12:03 Temperature 98.2 F Pulse Rate 97 Respiratory Rate 14 Blood Pressure 156/81 H Pulse Oximetry 94 Oxygen Delivery Method Room Air BMI result Body Mass Index 36.[address] Course Reevaluation(s) Reevaluation #1: Based off patient history of recurrent angioedema it is possible this is bradykinin in induced. I will try epinephrine for treatment of angioedema if he does not respond to it high suspicion for bradykinin and induced. This may help with treatment and diagnosis. Time: 08:28 Reevaluation #2: Epi did not make much of a difference in symptoms favoring possible mast cell mediated. Time: 10:24 Reevaluation #3: Swelling of lips, tongue much improved. Patient tells me he is breathing a little bit easier. Since this is a case of recurrent angioedema I do plan to admit patient for observation and possible IV steroids if needed. Time: 11:52 Additional Reevaluation(s): Plan hospital admission 1215' hospitalist note with patient he is unwilling to stay in the hospital for observation and possible further treatment with IV steroids. His swelling has improved he is no longer short of breath. Advised to follow-up with allergy and immunology as well as his PCP for this. I will discharge him home with an EpiPen. Medications Administered Discontinued Medications Generic Name Dose Route Start Last Admin Trade Name Freq PRN Reason Stop Dose Admin Dexamethasone Sodium Phosphate 10 mg 02/17/25 08:08 02/17/25 08:16 Dexamethasone Sod Phosphate 10 Mg/Ml Vial IVPUSH 02/17/25 08:09 10 mg ONCE ONE Administration Diphenhydramine HCl 50 mg 02/17/25 08:08 02/17/25 08:15 Diphenhydramine Hcl 50 Mg/Ml Vial IVPUSH 02/17/25 08:09 50 mg ONCE ONE Administration Epinephrine 0.3 mg 02/17/25 08:27 02/17/25 08:46 Epinephrine 1 Mg/Ml Vial IM 02/17/25 08:28 0.3 mg STAT STA Administration Famotidine 40 mg 02/17/25 08:08 02/17/25 08:15 Famotidine/Pf 20 Mg/2 Ml Vial IVPUSH 02/17/25 08:09 40 mg ONCE ONE Administration Medical Decision Making Medical Decision Making [facility] Narrative: 0815 54-year-old male presents with lip swelling, tongue swelling and difficulty swallowing since this morning when he woke up To note patient has history of angioedema in 2020 due to lisinopril 2022 thought to be from Advil and yesterday he came in with concerns that he may have reacted to a cookie. Today he tells me that he ate chocolate which may have contributed to this Physical exam + swelling/edema noted to lower lip, tongue and mild swelling to the uvula. Patient is speaking in full sentences controlling secretions History and physical exam concerning for angioedema should consider bradykinesia and induced versus mass cell mediated. Less likely anaphylaxis. I do not suspect acute threat to airway at this time. No signs of acute respiratory distress Plan will medicate with Decadron, Pepcid and Benadryl Differential Diagnosis Differential Diagnoses: The differential diagnosis associated with the presentation includes (History and physical exam concerning for angioedema should consider bradykinesia and induced versus mass cell mediated. Less likely anaphylaxis. I do not suspect acute threat to airway at this time. No signs of acute respiratory distress) Admission/Observation Consideration of admission/observation: Escalation of care including admission/observation considered External Record Review External record reviewed: Inpatient record, Office record, Outpatient record, Prior outpatient labs, Prior outpatient radiology, Primary care record and Outside ED record Critical Care Time Critical Care Time Critical Care Time: Yes Total Critical Care Time: 45 Attestation: I attest to this time spent taking care of the patient, obtaining history, physical, reviewing labs, imaging, treatment of patients condition +/- specialist/hospitalist consult +/- procedure Discharge Plan Discharge Clinical Impression: Angioedema, Shortness of breath, Left against medical advice Patient Disposition: Left Against Medical Advice Instructions: Against Medical Advice (ED) Additional Instructions: Take your medications as prescribed. If you were prescribed antibiotics today, it is important that you take your medication to their entirety, do not skip any doses, do not finish them early. Follow-up with your primary care provider this week. Return to the emergency department with new or worsening symptoms. Such as fevers, chills, chest pain, shortness of breath, nausea, vomiting, dizziness, headache, vision changes, lethargy In case of emergency call 911 Patient decided to leave against medical advice. I took the time to go over risks of leaving against medical advice including . Patient verbalizes understanding of this. Advised them to come back if they change their mind. Please continue taking your Pepcid and your prednisone How to use an EpiPen: ? Place the orange tip against the middle of the outer thigh. ? Swing and push the auto-injector firmly into the thigh until it ?clicks? ? Hold firmly in place for three seconds?count slowly, ?1, 2, 3? An EpiPen has been sent to your pharmacy this should only be used in severe emergency such as inability to breathe trouble speaking, shortness breath or any signs of anaphylaxis as discussed. If he use an EpiPen it is crucial you come in to an emergency department to be evaluated as you can have a rebound effect. Please follow-up with an allergy doctor. Prescriptions: New epinephrine [EpiPen 2-Duc] 0.3 mg/0.3 mL auto-injector 0.3 mg IM Q4H PRN (Reason: anaphylaxis) Qty: 2 0RF No Action (DME) pen needle, diabetic [BD Leonora 2nd Gen Pen Needle] 32 gauge x 5/32 needle See Rx Instructions .ROUTE .MEDSUPPLY Qty: 50 4RF Rx Instructions: once a day (DME) FreeStyle Lite Strips Strip See Rx Instructions .ROUTE .MEDSUPPLY Qty: 100 11RF Rx Instructions: 3 times a day, E11.65 (DME) blood-glucose meter [FreeStyle Lite Meter] Kit See Rx Instructions .ROUTE .MEDSUPPLY Qty: 1 0RF Rx Instructions: 3 times a day, E11.65 Jublia 10 % solution with applicator 1 appl topical DAILY 336 Days Qty: 4 1RF famotidine [Pepcid] 20 mg tablet 20 mg PO DAILY Qty: 4 0RF furosemide 20 mg tablet 20 mg PO DAILY Qty: 90 8RF (DME) lancets [FreeStyle Lancets] 28 gauge misc See Rx Instructions .ROUTE .MEDSUPPLY Qty: 100 6RF Rx Instructions: 3 times a day, E11.65 sildenafil [Viagra] 50 mg tablet 50 mg PO DAILY PRN (Reason: sexual activity) Qty: 20 3RF Rx Instructions: administer 30 minutes to 4 hours before activity citalopram 20 mg tablet 20 mg PO DAILY Qty: 90 8RF sertraline 100 mg tablet 100 mg PO DAILY Qty: 90 0RF zolpidem 10 mg tablet 10 mg PO BEDTIME PRN (Reason: sleep) Qty: 30 0RF metformin 500 mg tablet 1,000 mg PO BID 90 Days Qty: 360 3RF glipizide 10 mg tablet 10 mg PO DAILY 90 Days Qty: 90 1RF Rx Instructions: One tablet before breakfast albuterol sulfate 90 mcg/actuation HFA aerosol inhaler 2 puff inhalation Q4-6H PRN (Reason: Shortness Of Breath) Qty: 8.5 2RF insulin degludec [Tresiba FlexTouch U-100] 100 unit/mL (3 mL) insulin pen 10 unit subcut BEDTIME 30 Days Qty: 15 3RF Anoro Ellipta 62.5-25 mcg/actuation blister with device 1 inh inhalation DAILY 60 Days Qty: 60 1RF atorvastatin 10 mg tablet 10 mg PO BEDTIME Qty: 90 3RF prednisone 20 mg tablet 60 mg PO DAILY 5 Days Qty: 15 0RF famotidine [Pepcid] 20 mg tablet 20 mg PO BID 5 Days Qty: 10 0RF metoprolol tartrate 25 mg tablet 25 mg PO BID Qty: 180 8RF Trulicity 3 mg/0.5 mL pen injector 3 mg subcut QWEEK 28 Days Qty: 2 2RF ketoconazole 200 mg tablet 200 mg PO DAILY Qty: 60 1RF [facility]: [facility] [Outside] - 2 days Stand Alone Forms: Against Medical Advice Print Language: Citizen [place]
--- OUTSIDE RECORDS SUMMARY | 2025-02-17 08:38 | XMS_ITS | Patient Health Record ---
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 Name Role Phone Parul KENDRICK, John Primary Care Provider Unavaila Joel Bridges [phone] Reason For Referral No Information Encounters Encounter Location Date Provider Diagnosis [facility] [address] [place] [address] 06/20/2024 Joel Holder Plan Of Treatment No Information Insurance Providers Payer Name Payer Address Payer Phone Subscriber Number Group Number Insured Name Patient Relationship to Insured Coverage Start Date Coverage End Date [facility] [address] [place] [address] [id number] YESIKA RIVAS Self - patient is the insured
[2025-02-17 08:46] VITALS: BP 146/79; PULSE 97
[2025-02-17 10:01] VITALS: BP 148/86; PULSE 102; RESP 11; O2SAT 95
--- NOTE | 2025-02-17 11:04 | PC.NURSE ---
Pt comes to ED via EMS for suspected seizure this morning at home. Per EMS, Pt appears post ictal on arrival and quickly becomes combative: punching and biting. EMS reports placing 2 IV access in which Pt removed during combative behavior. Versed 5mg IM given in transport. On arrival to ED, Pt is disoriented and becomes combative when staff attempt to render care: Pt kicks legs, flails upper extremities, and pulls away from staff. IM Benadryl and Haldol given. This RN attempts IV access x3 without success as Pt is unable to tolerate and remain still during procedure despite multiple staff assisting. Family arrives at bedside and speaks with ED provider. At this time, Pt becomes more alert and oriented. Pt requests to use urinal. Pt continues to pulls at medical equipment, removes BP cuff, and is unable to remain still. He is unable to find a comfortable position and expresses extreme frustration with his current situation. Pt reports feeling anxious and requests additional medications for relief--Pt agreeable to for IM Valium and ED Provider aware and places order. Pt medicated per AUG. VS remain stable. Pt will proceed to CT and follow up attempts for IV access and blood work once Pt is more cooperative. ED provider aware on delay of IV access/blood work.
[2025-02-17 12:03] VITALS: BP 156/81; PULSE 97; RESP 14; TEMP 36.8; O2SAT 94
[2025-02-17 12:38] VITALS: BP 156/81; PULSE 97; RESP 14; TEMP 36.8; O2SAT 94
== END 2025-02-17 12:39 | disposition left against medical advice (07) ==
PROVIDERS: Emergency Provider Emergency Medicine; PCP Internal Medicine
DX: L50.0 Allergic urticaria (principal); T78.1XXA Other adverse food reactions, not elsewhere classified, initial encounter; R06.02 Shortness of breath; X58.XXXA Exposure to other specified factors, initial encounter; E11.9 Type 2 diabetes mellitus without complications; Z79.4 Long term (current) use of insulin; Z79.899 Other long term (current) drug therapy
CPT/HCPCS: 96372; 96374; 96375; 99284; J0165; J1100; J1200; J1308

== ENCOUNTER 2025-02-21 09:29 | Outpatient (AMB) | payer MEDICARE, SELFPAY ==
--- OUTSIDE RECORDS SUMMARY | 2024-06-20 09:20 | XMS_ITS ---
Author Organization [facility] Address [address] [place] [phone] Care Team Providers Care Ornamenter Name Role Phone Parul KENDRICK, John Primary Care Provider Unavaila Joel Bridges [phone] REASON FOR VISIT colon screening Encounters Encounter Location Date Provider Diagnosis [facility] [address] [place] [phone] 06/20/2024 Joel Holder Plan Of Treatment No Information Progress Notes * BRIANNE RIVASODOB:[birth year] (54 yo M)Acc No.[id number]:06/20/2024 Progress Notes Patient: YESIKA JOHNSON Provider: Darya Holder MD :1970 A ge:53 Y S ex:Male Date:06/20/2024 Address:[address] [place], [place] [id number] Pcp:John Teran MD Subjective: * Chief Complaints: * 1 . Colon screening. * Medical History: Objective: * Vitals: Assessment: Plan: * Treatment: * * The named appointment provid er may or may not be the originator of this progress note, and it is not deemed complete until electronically signed by the appointment provider. Sign off status: Pending * Provider: Darya Holder MD Date: 0 06/20/2024 Generated for Jesús javier/Liliam/Giovanyitting on: 0 02/21/2025 11:20 AM EDT
[2025-02-21 09:34] VITALS: BP 152/80; PULSE 91; O2SAT 94; BMI 36.3
--- NOTE | 2025-02-21 09:34 | MHC.PC.OV ---
Vital Signs 02/21/25 09:34 Height 5 ft 8 in Weight 238 lb 8 oz BMI 36.3 BP 152/80 H Blood Pressure Location Lt brachial Position Sitting Pulse 91 Pulse Source Pulse Oximeter Pulse Oximetry (%) 94 Oxygen Delivery Method Room Air Intake [place] [facility] [place] Allergic reaction Equal Employment Opportunity Officer Required: No Accompanied by: Self / Same As Patient Allergies lisinopril Adverse Reaction (Severe, Verified 02/21/25 09:53) Angioedema Medication List - Last Reconciled 02/21/25 by Sandy Alfaro MD albuterol sulfate 90 mcg/actuation 2 puffs inhalation Q4-6H PRN atorvastatin 10 mg PO BEDTIME blood sugar diagnostic (FreeStyle Lite Strips) 3 times a day, E11.65 blood-glucose meter (FreeStyle Lite Meter kit) 3 times a day, E11.65 citalopram 20 mg PO DAILY dulaglutide (Trulicity) 3 mg (0.5 mL) subcut QWEEK 28 days efinaconazole 10% (Jublia) 1 appl topical DAILY 48 weeks epinephrine (EpiPen 2-Duc) 0.3 mg (0.3 mL) IM Q4H PRN famotidine (Pepcid) 20 mg PO BID 5 days famotidine (Pepcid) 20 mg PO DAILY furosemide 20 mg PO DAILY glipizide 10 mg PO DAILY 90 days insulin degludec (Tresiba FlexTouch U-100 insulin) 10 units (0.1 mL) subcut BEDTIME 30 days ketoconazole 200 mg PO DAILY lancets (FreeStyle Lancets) 3 times a day, E11.65 metformin 1,000 mg (2 x 500 mg) PO BID 90 days metoprolol tartrate 25 mg PO BID pen needle, diabetic (BD Leonora 2nd Gen Pen Needle) once a day prednisone 60 mg (3 x 20 mg) PO DAILY 5 days sertraline 100 mg PO DAILY sildenafil (Viagra) 50 mg PO DAILY PRN umeclidinium-vilanterol 62.5-25 mcg/actuation (Anoro Ellipta) 1 inh inhalation DAILY 60 days zolpidem 10 mg PO BEDTIME PRN Tobacco use date assessed: 02/21/25 Dental Screening Dental Screen Date: 02/21/25 Did you have a dental visit in the last 12 months?: Yes Did you have a dental problem in the last 6 months where you did not have access to dental care?: No Was dental information given to patient?: Patient has dentist HPI HPI Comments History of Present Illness Details The patient is a 54-year-old male presenting with a follow-up for an allergic reaction. The allergic reaction began on February 15, characterized by swollen lips and angioedema after consuming chocolate. He had a similar reaction to lisinopril in 2020, which was subsequently discontinued. The patient has a history of diabetes mellitus type 2, managed with long-term insulin use. His A1c is currently within goal at 6.6%. Hypertension is present with a current blood pressure of 152/80 mmHg. Amlodipine 5 mg has been initiated to manage this condition. The patient also has hyperlipidemia, with the last LDL recorded at 55 mg/dL, which is within goal. He has moderate asthma, minor depression, anxiety, and insomnia, all of which are stable under psychiatric care. Thrombocytopenia has been identified, and a referral to hematology is planned. The patient is classified as having class 2 obesity with a BMI of 36.3. Diet and exercise have been advised to reduce BMI below 30. [facility] Medical History (Updated 02/21/25 @ 10:16 by Sandy Alfaro MD) Diabetes mellitus with coincident hypertension Obesity due to excess calories Diabetic neuropathy associated with type 2 diabetes mellitus Obesity (BMI 30-39.9) Hypertension Diabetes type 2, uncontrolled Diabetes mellitus Surgical History History of lumbar surgery History of circumcision Family History Father Diabetes Hypertension Heart disease Mother Diabetes Hypertension Heart disease Social History (Updated 02/21/25 @ 10:01 by Sandy Alfaro MD) Household Members: Significant Other Housing: House Alcohol intake: current Alcohol intake frequency: a few times a month Alcohol type: beer Patient Tobacco Use Status: Never used Tobacco e-Cigarette/Vaping Use: Never Used Second Hand Smoke Exposure: No service: No Current occupational status: employed Cognitive needs: No Hearing needs: No Vision needs: No Questionnaire PHQ-9 Over the last 2 weeks, how often have you been bothered by any of the following problems? 1. Little interest or pleasure in doing things: not at all 2. Feeling down, depressed, or hopeless: not at all 3. Trouble falling or staying asleep, or sleeping too much: not at all 4. Feeling tired or having little energy: not at all 5. Poor appetite or overeating: more than half the days 6. Feeling bad about yourself - or that you are a failure or have let yourself or your family down: not at all 7. Trouble concentrating on things, such as reading the newspaper or watching television: not at all 8. Moving or speaking so slowly that other people could have noticed. Or the opposite - being so fidgety or restless that you have been moving around a lot more than usual: not at all 9. Thoughts that you would be better off or of hurting yourself in some way: not at all Total score: 2 Depression Screening Interpretation: Negative Depression Screening Done: Yes 04364 - PHQ-9 Billing: Yes Source: Developed by Drs. Joel Jacob, Tricia Drake, Brian Beavers and colleagues, with an educational ayad from [email or web address]. Thrive Questionnaire Date Thrive assessed: 02/21/25 I am a: Patient What is your living situation today?: I have a steady place to live Within the past 12 months, did the food you bought not last and you didn't have the money to get more?: I choose not to answer this question Within the past 12 months, did you worry whether your food would run out before you got money to buy more?: I choose not to answer this question Do you have trouble paying for medicines?: I choose not to answer this question Do you have trouble getting transportation to medical appointments?: I choose not to answer this question Do you have trouble paying your heating and electricity bill?: I choose not to answer this question Do you have trouble taking care of your child, family member or friend?: I choose not to answer this question Do you have trouble with day-to-day activities such as bathing, preparing meals, shopping, managing finances, etc.?: I choose not to answer this question Are you currently unemployed and looking for a job?: I choose not to answer this question Are you interested in more education?: I choose not to answer this question Please select the resources that you would like help with: None Currently or been in a relationship where the following occur: I choose not to answer THRIVE Score: 0 SHAHLA-7 AMB Questionnaire SHAHLA-7 Date SHAHLA - 7 assessed: 10/26/24 Source: Developed by Drs. Joel Jacob, Tricia Drake, Brian Beavers and colleagues, with an educational ayad from [email or web address]. Review of Systems Const All systems reviewed & are unremarkable except as noted in HPI and below Card Denies chest pain at rest, Denies chest pain with activity, Denies edema, Denies irregular heart rhythm, Denies claudication, Denies dyspnea, Denies dyspnea on exertion, Denies orthopnea, Denies paroxysmal nocturnal dyspnea and Denies slow heart rate Resp Denies cough, Denies dyspnea and Denies dyspnea on exertion Musc Denies atrophy, Denies deformity and Denies limited range of motion Skin/Breast Denies bleeding lesions, Denies changing lesions and Denies rash Physical exam (Primary Care) Vital Signs: Last Vital Signs Pulse 91 02/21/25 09:34 BP 152/80 H 02/21/25 09:34 Pulse Ox 94 02/21/25 09:34 Oxygen Delivery Method Room Air 02/21/25 09:34 BMI result Body Mass Index 36.3 BMI Assessment/Plan discussion: High BMI High, discussed plan: lifestyle, weight reduction, dietary and physical activity Tobacco/Smoking Status: Tobacco use Status Tobacco use date assessed 02/21/25 02/21/25 09:38 Patient Tobacco Use Status Never used Tobacco 02/21/25 09:38 e-Cigarette/Vaping Use Never Used 02/21/25 09:38 PHQ-9: PHQ-9 Score PHQ-9: Total score 0 02/21/25 09:38 Depression Screening Interpretation: Negative Thrive Assessment: Date of Thrive Assessment Date Thrive assessed 02/21/25 02/21/25 09:38 Currently or been in a relationship where the following occur: I choose not to answer Resp Effort & Inspection: normal respiratory effort Auscultation: clear to auscultation bilaterally Cardio Jugular venous distension: no JVD Rate: regular rate Rhythm: regular rhythm Heart sounds: S1 normal heart sound present and S2 normal heart sound present Extrem General: Yes full ROM Results AMB Hemoglobin A1c AMB Hemoglobin A1c 6.6 % Last Edit by FATEMEH Lambert on 02/21/25 09:59 Coding Level of Care Code Est Pt Level 4 (89175) Complex EM visit Add On G2211 Diagnoses Allergic reaction T78.40XA Mild recurrent major depression F33.0 Essential hypertension I10 Hyperlipidemia LDL goal <70 E78.5 Thrombocytopenia D69.6 Diabetes mellitus E11.9 Class 2 drug-induced obesity with body mass index (BMI) of 36.0 to 36.9 in adult E66.812; E66.1; Z68.36 Additional Codes PHQ-9 - 96609 - PHQ-9 Billing: Yes ([id number]) Time Spent (min) 24 Assessment & Plan Assessment & Plan (1) Allergic reaction: Code(s): T78.40XA - Allergy, unspecified, initial encounter Category: Medical (2) Mild recurrent major depression: Code(s): F33.0 - Major depressive disorder, recurrent, mild Category: Medical (3) Essential hypertension: Code(s): I10 - Essential (primary) hypertension Category: Medical (4) Hyperlipidemia LDL goal <70: Code(s): E78.5 - Hyperlipidemia, unspecified Category: Medical (5) Thrombocytopenia: Code(s): D69.6 - Thrombocytopenia, unspecified Category: Medical (6) Diabetes mellitus: Code(s): E11.9 - Type 2 diabetes mellitus without complications Category: Medical (7) Class 2 drug-induced obesity with body mass index (BMI) of 36.0 to 36.9 in adult: Code(s): E66.812 - Obesity, class 2; E66.1 - Drug-induced obesity; Z68.36 - Body mass index [BMI] 36.0-36.9, adult Category: Medical Plan Plan Patient was informed and verbally consented to the use of an ambient scribe for clinic note documentation during this visit. 1. Type 2 diabetes mellitus without complications E11.9 HCC 19 The patient's diabetes mellitus type 2 is currently managed with long-term insulin therapy, and his A1c is within goal at 6.6%. 2. Essential (primary) hypertension I10 The patient's blood pressure is currently 152/80 mmHg, and amlodipine 5 mg has been prescribed to achieve better control. 3. Hyperlipidemia, unspecified E78.5 The patient's LDL was last recorded at 55 mg/dL, which is within the target range. 4. Angioneurotic edema, initial encounter T78.3XXA The patient experienced angioedema after consuming chocolate, similar to a previous reaction to lisinopril in 2020. He will be referred to an fish rod maker and has been advised to carry an Epipen. 5. Thrombocytopenia, unspecified D69.6 HCC 48 The patient has thrombocytopenia and will be referred to hematology for further evaluation. 6. Obesity, class 2 E66.812 The patient is advised to engage in diet and exercise to reduce his BMI from 36.3 to below 30. 7. Major depressive disorder, recurrent, mild F33.0 HCC 59 Continue SSRIs. Follow up with psychaitry. Orders: Orders AMB Hemoglobin A1c Today Z13.9 - Encounter for screening, unspecified Lipid Panel Today E78.5 - Hyperlipidemia, unspecified HIV Ab/Ag Today Z11.4 - Encounter for screening for human immunodeficiency virus [HIV] Comprehensive [place]. Panel Fast Today E11.9 - Type 2 diabetes mellitus without complications Microalbumin, Random (w Creat) Today R80.9 - Proteinuria, unspecified Vitamin D 25-OH Total Today E55.9 - Vitamin D deficiency, unspecified Vitamin B12 and Folate Today E53.8 - Deficiency of other specified B group vitamins Complete Blood Count Auto Diff Today D64.9 - Anemia, unspecified IRON PROFILE Today D64.9 - Anemia, unspecified Hepatitis C Antibody Today D69.6 - Thrombocytopenia, unspecified SANDY Reflex Titer and Pattern Today D69.6 - Thrombocytopenia, unspecified Thyroid Stimulating Hormone Today D69.6 - Thrombocytopenia, unspecified Referrals Allergy & Immunology Referral T78.40XA - Allergy, unspecified, initial encounter Hematology & Oncology Referral D69.6 - Thrombocytopenia, unspecified Medications: New amlodipine 5 mg PO DAILY 90 tabs 1RF 90 days I10 - Essential (primary) hypertension Refilled dulaglutide (Trulicity) 3 mg (0.5 mL) subcut QWEEK 2 mL 2RF 28 days metformin 1,000 mg (2 x 500 mg) PO BID 360 tabs 3RF 90 days glipizide One tablet before breakfast 10 mg PO DAILY 90 tabs 1RF 90 days E11.65 - Type 2 diabetes mellitus with hyperglycemia
--- OUTSIDE RECORDS SUMMARY | 2025-02-21 11:21 | XMS_ITS | Patient Health Record ---
Author Organization [facility] Address [address] [place] [address] Care Team Providers Care E Commerce Web Developer Name Role Phone Parul KENDRICK, John Primary Care Provider Unavaila Joel Bridges [phone] Reason For Referral No Information Encounters Encounter Location Date Provider Diagnosis [facility] [address] [place] [address] 06/20/2024 Joel Holder Plan Of Treatment No Information Insurance Providers Payer Name Payer Address Payer Phone Subscriber Number Group Number Insured Name Patient Relationship to Insured Coverage Start Date Coverage End Date [facility] [address] [place] [address] [id number] YESIKA RIVAS Self - patient is the insured
== END 2025-02-21 10:14 | disposition home or self-care (01) ==
LOC: HO.HMCH 09:33
PROVIDERS: PCP Internal Medicine; Visit Provider Internal Medicine
DX: E11.69 Type 2 diabetes mellitus with other specified complication (principal); T78.40XA Allergy, unspecified, initial encounter; E66.812 Obesity, class 2; Z68.36 Body mass index [BMI] 36.0-36.9, adult; F33.0 Major depressive disorder, recurrent, mild; I10 Essential (primary) hypertension; E78.5 Hyperlipidemia, unspecified; D69.6 Thrombocytopenia, unspecified; E66.1 Drug-induced obesity

== ENCOUNTER → 2025-02-21 09:29 | Outpatient (BNVA) | payer MEDICARE, SELFPAY | PROVIDERS: PCP Internal Medicine; Visit Provider Internal Medicine | DX: E11.65 Type 2 diabetes mellitus with hyperglycemia (principal); D69.6 Thrombocytopenia, unspecified; I10 Essential (primary) hypertension; J45.909 Unspecified asthma, uncomplicated; F41.9 Anxiety disorder, unspecified; G47.00 Insomnia, unspecified; E66.812 Obesity, class 2; E66.01 Morbid (severe) obesity due to excess calories; F33.0 Major depressive disorder, recurrent, mild; E78.5 Hyperlipidemia, unspecified; Z68.36 Body mass index [BMI] 36.0-36.9, adult; T78.3XXD Angioneurotic edema, subsequent encounter; X58.XXXD Exposure to other specified factors, subsequent encounter | CPT/HCPCS: 83036; 96127; 99212 ==

== ENCOUNTER 2025-03-09 10:35 | Outpatient (REF) | payer MEDICARE, SELFPAY ==
--- OUTSIDE RECORDS SUMMARY | 2024-06-20 09:20 | XMS_ITS ---
Author Organization [facility] Address [address] [place] [phone] Care Team Providers Care Speedometer Inspector Name Role Phone Parul KENDRICK, John Primary Care Provider Unavaila Joel Bridges [phone] REASON FOR VISIT colon screening Encounters Encounter Location Date Provider Diagnosis [facility] [address] [place] [phone] 06/20/2024 Joel Holder Plan Of Treatment No Information Progress Notes * BRIANNE RIVASODOB:[birth year] (54 yo M)Acc No.[id number]:06/20/2024 Progress Notes Patient: YESIKA JOHNSON Provider: Darya Holder MD :1970 A ge:53 Y S ex:Male Date:06/20/2024 Address:[address] [place], [place] [id number] Pcp:John Teran MD Subjective: * Chief Complaints: [...] 06/20/2024 Generated for Jesús javier/Liliam/Giovanyitting on: 0 03/09/2025 12:06 PM EDT
[2025-03-09 10:49] LABS: MANUAL DIFF FLAG NO
[2025-03-09 11:54] LABS: Hematocrit 40.5 % (42.0-52.0); Hemoglobin 12.4 g/dl (14.0-18.0); Imm Gran Abs Auto 0.02 X10*3/uL (0.00-0.03); Imm Gran Pct Auto 0.4 % (0.0-0.4); Lymphocytes Absolute Auto 0.9 X10*3/uL (1.2-4.9); Mean Corpuscular HGB Conc 30.6 g/dl (31.0-36.0); Mean Corpuscular Hemoglobin 26.2 pg (27.0-33.0); Mean Corpuscular Volume 85.6 fL (80.0-98.0); NRBC Abs Auto 0.000 X10*3/uL (0.0-0.012); NRBC Pct Auto 0.0 /100WBC (0.0-0.2); Platelet Count 143 X10*3/uL (160-400); Red Blood Count 4.73 X10*6/uL (4.60-5.80); White Blood Count 4.7 X10*3/uL (4.8-10.8)
--- OUTSIDE RECORDS SUMMARY | 2025-03-09 12:06 | XMS_ITS | Patient Health Record ---
Author Organization [facility] Address [address] [place] [address] Care Team Providers Care Dedenter Name Role Phone Parul KENDRICK, John Primary Care Provider Unavaila Joel Bridges [phone] Reason For Referral No Information Encounters Encounter Location Date Provider Diagnosis [facility] [address] [place] [address] 06/20/2024 Joel Holder Plan Of Treatment No Information Insurance Providers Payer Name Payer Address Payer Phone Subscriber Number Group Number Insured Name Patient Relationship to Insured Coverage Start Date Coverage End Date [facility] [address] [place] [address] [id number] YESIKA RIVAS Self - patient is the insured
[2025-03-09 12:47] LABS: Alanine Aminotransferase 32 U/L (0-40); Albumin Level 3.0 g/dL (3.5-5.0); Alkaline Phosphatase 176 U/L (39-117); Anion Gap 11 (12-20); Aspartate Amino Transferase 78 U/L (5-37); Blood Urea Nitrogen 5 mg/dL (9-16); Calcium 8.5 mg/dL (8.4-10.2); Carbon Dioxide 29 mmol/L (22-29); Chloride 101 mmol/L (96-108); Cholesterol 122 mg/dL (<200); Estimated Glomerular Filt Rate > 60; HDL Cholesterol 60 mg/dL (>40); Iron 43 mcg/dL (45-160); Percent Iron Saturation 13 % (15-50); Potassium 4.3 mmol/L (3.3-5.1); Sodium 137 mmol/L (135-145); Total Iron Binding Capacity 327 mcg/dL (228-428); Total Protein 7.6 g/dL (6.5-8.0); Triglycerides 55 mg/dL (<150); Unsaturated Iron Binding 284 ug/dL
[2025-03-09 12:50] LABS: Folate 10.5 ng/mL (> or = 4.0); Vitamin B12 995 pg/mL (200-900)
[2025-03-09 12:51] LABS: Thyroid Stimulating Hormone 1.53 uIU/mL (0.32-4.0)
[2025-03-09 12:51] LABS: Microalbum/Creatinine Ratio Ur 86.2 ug/mg cr (<30)
[2025-03-12 04:35] LABS: HIV Num 1 0.05 S/CO (0.00-0.99); ~HepC Num1 0.12 S/CO (0.00-0.79); ~Hepatitis C Antibody Nonreactive (Nonreactive)
[2025-03-15 12:52] LABS: Anti Nuclear Antibody Pattern Nuclear, Speckled; Anti Nuclear Antibody Screen POSITIVE (NEGATIVE); Anti Nuclear Antibody Titer 1:40 titer
== END 2025-03-09 10:36 | disposition home or self-care (01) ==
LOC: HO.LAB 10:35
PROVIDERS: PCP Internal Medicine; Visit Provider Internal Medicine
DX: Z11.4 Encounter for screening for human immunodeficiency virus [HIV] (principal); Z11.59 Encounter for screening for other viral diseases; E11.69 Type 2 diabetes mellitus with other specified complication; E53.8 Deficiency of other specified B group vitamins; D64.9 Anemia, unspecified; R80.9 Proteinuria, unspecified; E55.9 Vitamin D deficiency, unspecified; D69.6 Thrombocytopenia, unspecified
CPT/HCPCS: 36415; 80053; 80061; 82043; 82306; 82570; 82607; 82746; 83540; 84443; 85025; 86038; 86039; 86803; 87389

== ENCOUNTER 2025-03-14 10:47 | Outpatient (AMB) | payer OTHER, SELFPAY ==
--- OUTSIDE RECORDS SUMMARY | 2024-06-20 09:20 | XMS_ITS ---
Author Organization [facility] Address [address] [place] [phone] Care Team Providers Care Resource Manager Name Role Phone Parul KENDRICK, John Primary Care Provider Unavaila Joel Bridges [phone] REASON FOR VISIT colon screening Encounters Encounter Location Date Provider Diagnosis [facility] [address] [place] [phone] 06/20/2024 Joel Holder Plan Of Treatment No Information Progress Notes * BRIANNE RIVASODOB:[birth year] (54 yo M)Acc No.[id number]:06/20/2024 Progress Notes Patient: YESIKA JOHNSON Provider: Darya Holder MD :1970 A ge:53 Y S ex:Male Date:06/20/2024 Address:[address] [place], [place] [id number] Pcp:John Teran MD Subjective: * Chief Complaints: [...] 0 06/20/2024 Generated for Jesús javier/Liliam/Giovanyitting on: 12:24 PM EDT
[2025-03-14 10:51] VITALS: BP 150/62; PULSE 95; RESP 18; TEMP 36.3; O2SAT 90; BMI 35.6
--- NOTE | 2025-03-14 10:51 | A.OFFPC_ITS ---
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 Required: No Accompanied by: Self / Same As Patient Allergies lisinopril Adverse Reaction (Severe, Verified 03/14/25 11:16) Angioedema Medication List - Last Reconciled 03/14/25 by Sandy Alfaro MD albuterol sulfate 90 mcg/actuation 2 puffs inhalation Q4-6H PRN amlodipine 5 mg PO DAILY 90 days atorvastatin 10 mg PO BEDTIME blood sugar diagnostic (FreeStyle Lite Strips) 3 times a day, E11.65 blood-glucose meter (FreeStyle Lite Meter kit) 3 times a day, E11.65 citalopram 20 mg PO DAILY dulaglutide (Trulicity) 3 mg (0.5 mL) subcut QWEEK 28 days efinaconazole 10% (Jublia) 1 appl topical DAILY 48 weeks epinephrine (EpiPen 2-Duc) 0.3 mg (0.3 mL) IM Q4H PRN famotidine (Pepcid) 20 mg PO BID 5 days famotidine (Pepcid) 20 mg PO DAILY furosemide 20 mg PO DAILY glipizide 10 mg PO DAILY 90 days insulin degludec (Tresiba FlexTouch U-100 insulin) 10 units (0.1 mL) subcut BEDTIME 30 days ketoconazole 200 mg PO DAILY lancets (FreeStyle Lancets) 3 times a day, E11.65 metformin 1,000 mg (2 x 500 mg) PO BID 90 days metoprolol tartrate 25 mg PO BID pen needle, diabetic (BD Leonora 2nd Gen Pen Needle) once a day prednisone 60 mg (3 x 20 mg) PO DAILY 5 days sertraline 100 mg PO DAILY sildenafil (Viagra) 50 mg PO DAILY PRN umeclidinium-vilanterol 62.5-25 mcg/actuation (Anoro Ellipta) 1 inh inhalation DAILY 60 days zolpidem 10 mg PO BEDTIME PRN Tobacco use date assessed: 03/14/25 Dental Screening Dental Screen Date: 03/14/25 Did you have a dental visit in the last 12 months?: No Did you have a dental problem in the last 6 months where you did not have access to dental care?: No Was dental information given to patient?: No HPI HPI Comments History of Present Illness Details The patient is a 54-year-old male presenting with hypertension management and review of recent laboratory results. Hypertension has been a concern with a recent measurement of elevatec bp, indicating poor control despite current medication regimen. The patient is currently taking amlodipine, with a proposed increase in dosage to improve blood pressure control. The patient has a history of angioedema due to lisinopril, which necessitated a change in antihypertensive therapy. The patient is diagnosed with Major Depressive Disorder with Anxiety, managed with citalopram and sertraline, prescribed by psychiatry. The patient also uses zolpidem for sleep disturbances related to anxiety. Asthma is a chronic condition for the patient, with occasional shortness of breath noted, particularly during exacerbations. Type 2 Diabetes Mellitus is managed with glipizide, metformin, and trulicity, with no current need for additional interventions. A1c within goal. The patient is classified as having Class 2 obesity with a BMI of 35, and is advised to lose weight to improve overall health. Vitamin D deficiency is noted with a level of 10 ng/mL, significantly below the normal range, requiring supplementation. Proteinuria was identified, prompting a referral to a battery builder for further evaluation, although renal function is currently normal. Anemia is present with a slightly low iron level, but no immediate intervention is required as other parameters are stable. Has asthma and will be refer to pulmunology. [facility] Medical History (Updated 03/14/25 @ 11:27 by Sandy Alfaro MD) Diabetes mellitus with coincident hypertension Obesity due to excess calories Diabetic neuropathy associated with type 2 diabetes mellitus Obesity (BMI 30-39.9) Hypertension Diabetes type 2, uncontrolled Diabetes mellitus Surgical History History of lumbar surgery History of circumcision Family History Father Diabetes Hypertension Heart disease Mother Diabetes Hypertension Heart disease Social History Household Members: Significant Other Housing: House Alcohol intake: current Alcohol intake frequency: a few times a month Alcohol type: beer Patient Tobacco Use Status: Never used Tobacco e-Cigarette/Vaping Use: Never Used Second Hand Smoke Exposure: No service: No Current occupational status: employed Cognitive needs: No Hearing needs: No Vision needs: No Questionnaire Thrive Questionnaire Date Thrive assessed: 07/28/24 I am a: Patient What is your living situation today?: I have a steady place to live Within the past 12 months, did the food you bought not last and you didn't have the money to get more?: I choose not to answer this question Within the past 12 months, did you worry whether your food would run out before you got money to buy more?: I choose not to answer this question Do you have trouble paying for medicines?: I choose not to answer this question Do you have trouble getting transportation to medical appointments?: I choose not to answer this question Do you have trouble paying your heating and electricity bill?: I choose not to answer this question Do you have trouble taking care of your child, family member or friend?: I choose not to answer this question Do you have trouble with day-to-day activities such as bathing, preparing meals, shopping, managing finances, etc.?: I choose not to answer this question Are you currently unemployed and looking for a job?: I choose not to answer this question Are you interested in more education?: I choose not to answer this question Please select the resources that you would like help with: None Currently or been in a relationship where the following occur: I choose not to answer THRIVE Score: 0 SHAHLA-7 AMB Questionnaire SHAHLA-7 Date SHAHLA - 7 assessed: 10/26/24 Source: Developed by Drs. Joel Jacob, Tricia Drake, Brian Beavers and colleagues, with an educational ayad from [employer]. Review of Systems Const All systems reviewed & are unremarkable except as noted in HPI and below Card Denies chest pain at rest, Denies chest pain with activity, Denies edema, Denies irregular heart rhythm, Denies claudication, Denies dyspnea, Denies dyspnea on exertion, Denies orthopnea, Denies paroxysmal nocturnal dyspnea and Denies slow heart rate Resp Denies cough, Denies dyspnea and Denies dyspnea on exertion Physical exam (Primary Care) Vital Signs: Last Vital Signs Temp 97.3 F 03/14/25 10:51 Pulse 95 03/14/25 10:51 Resp 18 03/14/25 10:51 BP 150/62 H 03/14/25 10:51 Pulse Ox 90 L 03/14/25 10:51 Oxygen Delivery Method Room Air 03/14/25 10:51 BMI result Body Mass Index 35.6 BMI Assessment/Plan discussion: High BMI High, discussed plan: lifestyle, weight reduction, dietary and physical activity Tobacco/Smoking Status: Tobacco use Status Tobacco use date assessed 03/14/25 03/14/25 10:58 Patient Tobacco Use Status Never used Tobacco 03/14/25 10:58 e-Cigarette/Vaping Use Never Used 03/14/25 10:58 Thrive Assessment: Date of Thrive Assessment Date Thrive assessed 07/28/24 03/14/25 10:58 Currently or been in a relationship where the following occur: I choose not to answer Resp Effort & Inspection: normal respiratory effort Auscultation: clear to auscultation bilaterally Cardio Jugular venous distension: no JVD Rate: regular rate Rhythm: regular rhythm Heart sounds: S1 normal heart sound present and S2 normal heart sound present Extrem General: Yes full ROM Coding Level of Care Code Est Pt Level 4 (07800) Complex EM visit Add On G2211 Diagnoses Mild recurrent major depression F33.0 Essential hypertension I10 Hyperlipidemia LDL goal <70 E78.5 Thrombocytopenia D69.6 Diabetes mellitus E11.9 Microalbuminuria R80.9 Moderate asthma J45.909 Time Spent (min) 23 Assessment & Plan Assessment & Plan (1) Mild recurrent major depression: Code(s): F33.0 - Major depressive disorder, recurrent, mild Category: Medical (2) Essential hypertension: Code(s): I10 - Essential (primary) hypertension Category: Medical (3) Hyperlipidemia LDL goal <70: Code(s): E78.5 - Hyperlipidemia, unspecified Category: Medical (4) Thrombocytopenia: Code(s): D69.6 - Thrombocytopenia, unspecified Category: Medical (5) Diabetes mellitus: Code(s): E11.9 - Type 2 diabetes mellitus without complications Category: Medical (6) Microalbuminuria: Code(s): R80.9 - Proteinuria, unspecified Category: Medical (7) Moderate asthma: Code(s): J45.909 - Unspecified asthma, uncomplicated Category: Medical Plan Plan Patient was informed and verbally consented to the use of an ambient scribe for clinic note documentation during this visit. 1. Essential Hypertension The patient's blood pressure is elevated at 156.2 mmHg, indicating suboptimal control. An increase in amlodipine dosage is recommended to improve blood pressure management. 2. Angioedema Due To Lisinopril The patient has a history of angioedema associated with lisinopril, necessitating a change in antihypertensive medication. 3. Major Depressive Disorder With Anxiety The patient is managed with citalopram and sertraline for depression and anxiety, with zolpidem prescribed for sleep disturbances. 4. Asthma The patient experiences occasional dyspnea related to asthma, managed with current medications. 5. Type 2 Diabetes Mellitus Diabetes is managed with glipizide, metformin, and trulicity, with no additional interventions required at this time. 6. Obesity, Class 2 The patient is advised to lose weight to manage Class 2 obesity, with a BMI of 35. 7. Vitamin D Deficiency Vitamin D supplementation is recommended due to a deficiency with a level of 10 ng/mL. 8. Proteinuria Proteinuria is noted, and a referral to a battery builder is made for further evaluation. 9. Anemia Anemia is present with slightly low iron levels, but no immediate intervention is required. Orders: Orders Comprehensive Powell. Panel Fast 4 Months E11.9 - Type 2 diabetes mellitus without complications Lipid Panel 4 Months E78.5 - Hyperlipidemia, unspecified Microalbumin, Random (w Creat) 4 Months R80.9 - Proteinuria, unspecified Vitamin D 25-OH Total 4 Months E55.9 - Vitamin D deficiency, unspecified Referrals Pulmonology Referral J45.909 - Unspecified asthma, uncomplicated Nephrology Referral R80.9 - Proteinuria, unspecified Medications: New cholecalciferol (vitamin D3) 50 mcg PO DAILY 90 caps 1RF 90 days amlodipine 10 mg PO DAILY 90 tabs 1RF 90 days Refilled dulaglutide (Trulicity) 3 mg (0.5 mL) subcut QWEEK 2 mL 2RF 28 days Discontinued amlodipine Discontinued Reason: Patient Completed Course 5 mg PO DAILY 90 days 90 tabs 1RF I10 - Essential (primary) hypertension
--- OUTSIDE RECORDS SUMMARY | 2025-03-14 12:24 | XMS_ITS | Patient Health Record ---
Author Organization [facility] Address [address] [place] [address] Care Team Providers Care Tmr Teacher Name Role Phone Parul KENDRICK, John Primary Care Provider Unavaila Joel Bridges [phone] Reason For Referral No Information Encounters Encounter Location Date Provider Diagnosis [facility] [address] [place] [address] 06/20/2024 Joel Holder Plan Of Treatment No Information Insurance Providers Payer Name Payer Address Payer Phone Subscriber Number Group Number Insured Name Patient Relationship to Insured Coverage Start Date Coverage End Date [facility] [address] [place] [address] [id number] YESIKA RIVAS Self - patient is the insured
== END 2025-03-14 11:29 | disposition home or self-care (01) ==
LOC: HO.HMCH 10:48
PROVIDERS: PCP Internal Medicine; Visit Provider Internal Medicine
DX: E11.69 Type 2 diabetes mellitus with other specified complication (principal); F33.0 Major depressive disorder, recurrent, mild; I10 Essential (primary) hypertension; E78.5 Hyperlipidemia, unspecified; D69.6 Thrombocytopenia, unspecified; R80.9 Proteinuria, unspecified; J45.909 Unspecified asthma, uncomplicated

== ENCOUNTER → 2025-03-14 10:47 | Outpatient (BNVA) | payer MEDICARE, SELFPAY | PROVIDERS: PCP Internal Medicine; Visit Provider Internal Medicine | DX: I10 Essential (primary) hypertension (principal); F41.9 Anxiety disorder, unspecified; J45.909 Unspecified asthma, uncomplicated; E11.9 Type 2 diabetes mellitus without complications; E66.812 Obesity, class 2; E55.9 Vitamin D deficiency, unspecified; R80.9 Proteinuria, unspecified; D64.9 Anemia, unspecified; F33.0 Major depressive disorder, recurrent, mild; E78.5 Hyperlipidemia, unspecified; D69.6 Thrombocytopenia, unspecified; Z68.35 Body mass index [BMI] 35.0-35.9, adult | CPT/HCPCS: 99212 ==

== ENCOUNTER 2025-05-03 14:43 | Outpatient (AMB) | payer MEDICARE, SELFPAY ==
--- OUTSIDE RECORDS SUMMARY | 2024-06-20 08:20 | XMS_ITS ---
Author Organization [facility] Address [address] [place] [phone] Care Team Providers Care General Service Officer Name Role Phone Parul KENDRICK, John Primary Care Provider Unavaila Joel Bridges [phone] REASON FOR VISIT colon screening Encounters Encounter Location Date Provider Diagnosis [facility] [address] [place] [phone] 06/20/2024 Joel Holder Plan Of Treatment No Information Progress Notes * BRIANNE RIVASODOB:[birth year] (54 yo M)Acc No.[id number]:06/20/2024 Progress Notes Patient: YESIKA JOHNSON Provider: Darya Holder MD :1970 A ge:53 Y S ex:Male Date:06/20/2024 Address:[address] [place], [place] [id number] Pcp:John Teran MD Subjective: * Chief Complaints: * C olon screening * The named appointment provid er may or may not be the originator of this progress note, and it is not deemed complete until electronically signed by the appointment provider. Sign off status: Pending * Provider: Darya Holder MD Date: 0 06/20/2024 Generated for Jesús javier/Liliam/Giovanyitting on: 07/03/2024 08:07 PM EST
--- NOTE | 2025-05-03 14:45 | HO.NEPHOV_ITS ---
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: No Accompanied by: Self / Same As Patient Allergies lisinopril Adverse Reaction (Severe, Verified 05/03/25 14:49) Angioedema Medication List - Last Reconciled 05/03/25 by Vinay Cuenca MD albuterol sulfate 90 mcg/actuation 2 puffs inhalation Q4-6H PRN amlodipine 10 mg PO DAILY 90 days atorvastatin 10 mg PO BEDTIME blood sugar diagnostic (FreeStyle Lite Strips) 3 times a day, E11.65 blood-glucose meter (FreeStyle Lite Meter kit) 3 times a day, E11.65 cholecalciferol (vitamin D3) 50 mcg PO DAILY 90 days citalopram 20 mg PO DAILY dulaglutide (Trulicity) 3 mg (0.5 mL) subcut QWEEK 28 days efinaconazole 10% (Jublia) 1 appl topical DAILY 48 weeks epinephrine (EpiPen 2-Duc) 0.3 mg (0.3 mL) IM Q4H PRN famotidine (Pepcid) 20 mg PO BID 5 days furosemide 20 mg PO DAILY glipizide 10 mg PO DAILY 90 days insulin degludec (Tresiba FlexTouch U-100 insulin) 10 units (0.1 mL) subcut BEDTIME 30 days ketoconazole 200 mg PO DAILY lancets (FreeStyle Lancets) 3 times a day, E11.65 metformin 1,000 mg (2 x 500 mg) PO BID 90 days metoprolol tartrate 25 mg PO BID pen needle, diabetic (BD Leonora 2nd Gen Pen Needle) once a day sertraline 100 mg PO DAILY sildenafil (Viagra) 50 mg PO DAILY PRN umeclidinium-vilanterol 62.5-25 mcg/actuation (Anoro Ellipta) 1 inh inhalation DAILY 60 days zolpidem 10 mg PO BEDTIME PRN HPI Comments Details: Chucho is a 54-year-old man with a history of longstanding diabetes mellitus. He was found to have microalbuminuria and hence this referral. Urine microalbumin creatinine ratio was 86. Renal function has been stable with the recent serum creatinine of 0.63 mg/dL. As for diabetes mellitus recent A1c was 6.6%. He has a history of hypertension. He is currently on amlodipine 5 mg a day. He has significant leg edema in both the legs. He complains of shortness of breath on exertion. No chest pain. Recently amlodipine has been increased to 10 mg per day he has not picked up the new prescription yet. He was on furosemide 20 mg and it appears that he is not taking the diuretic anymore. He has a history of allergies to lisinopril which has caused angioedema. At present he is not on any JETT inhibition. Of note the liver function test is elevated. Recent bilirubin 2.2 with a AST of 78. He admits to drinking about 3 Stack slight about 3 or 4 times a week. History of back pain he has undergone back surgery in the past. He denies taking any NSAIDs at this time. [facility] Medical History Diabetes mellitus with coincident hypertension Obesity due to excess calories Diabetic neuropathy associated with type 2 diabetes mellitus Obesity (BMI 30-39.9) Hypertension Diabetes type 2, uncontrolled Diabetes mellitus Surgical History History of lumbar surgery History of circumcision Family History Father Diabetes Hypertension Heart disease Mother Diabetes Hypertension Heart disease Social History Household Members: Significant Other Housing: House Alcohol intake: current Alcohol intake frequency: a few times a month Alcohol type: beer Patient Tobacco Use Status: Never used Tobacco e-Cigarette/Vaping Use: Never Used Second Hand Smoke Exposure: No service: No Current occupational status: employed Cognitive needs: No Hearing needs: No Vision needs: No Review of Systems Const Denies fever(s) and Denies weight loss Card Denies chest pain and Reports dyspnea on exertion Resp Denies cough, Denies hemoptysis and Reports dyspnea on exertion GI Denies abdominal pain, Denies diarrhea and Denies nausea Musc Denies back pain Neuro Denies focal weakness Physical Exam Vital Signs: Last Vital Signs Pulse 93 05/03/25 14:49 BP 148/70 H 05/03/25 14:49 Pulse Ox 94 05/03/25 14:49 Oxygen Delivery Method Room Air 05/03/25 14:49 BMI result Body Mass Index 37.5 Comfortable Neck supple no JVD. Lungs entry equal - bibasal crackles Heart S1-S2 heard no gallop or rub. Abdomen soft nontender. Neuro alert awake oriented. No asterixis. Extremities 2+ edema. Results Reviewed Nephrology Results: Hgb, (14.0-18.0) 12.4 g/dl L 03/09/25 WBC, (4.8-10.8) 4.7 X10*3/uL L 03/09/25 Plt Count, (160-400) 143 X10*3/uL L Δ 03/09/25 Sodium, (135-145) 137 mmol/L 03/09/25 Potassium, (3.3-5.1) 4.3 mmol/L 03/09/25 Chloride, (96-108) 101 mmol/L 03/09/25 Carbon Dioxide, (22-29) 29 mmol/L 03/09/25 BUN, (9-16) 5 mg/dL L 03/09/25 Creatinine, (0.5-1.4) 0.63 mg/dL 03/09/25 Calcium, (8.4-10.2) 8.5 mg/dL 03/09/25 Urine Creatinine 110.16 mg/dL 03/09/25 Assessment & Plan Assessment & Plan (1) Essential hypertension: Code(s): I10 - Essential (primary) hypertension Category: Medical (2) Microalbuminuria: Code(s): R80.9 - Proteinuria, unspecified Category: Medical Plan 54-year-old man with microalbuminuria. Microalbuminuria is most likely due to underlying diabetic hypertensive kidney disease. Hypertension Blood pressure is suboptimal. He appears hypervolemic. Leg edema may be due to amlodipine as well. Diabetes mellitus Elevated LFTs Plan Keep amlodipine at 5 mg daily. I would not increase to 10 mg due to the leg edema. Check echocardiogram. Encouraged him to stay on low-sodium diet. Add Aldactazide 25/25 HALF a tablet today and can increase the dose gradually. Workup ordered as indicated below. Returned to office in the next few weeks. Orders: Orders Total Protein Urine Random Today I10 - Essential (primary) hypertension, R80.9 - Proteinuria, unspecified Creatinine Urine Today I10 - Essential (primary) hypertension, R80.9 - Proteinuria, unspecified CA echo transthoracic complete Today I10 - Essential (primary) hypertension, R06.00 - Dyspnea, unspecified Basic Metabolic Panel Today I10 - Essential (primary) hypertension, R80.9 - Proteinuria, unspecified UA and rflx microscopic Today I10 - Essential (primary) hypertension, R80.9 - Proteinuria, unspecified Medications: New spironolacton-hydrochlorothiaz 25-25 mg 0.5 tabs PO DAILY 90 tabs 0RF Changed From amlodipine 10 mg PO DAILY 90 days 90 tabs 1RF To amlodipine 5 mg PO DAILY 90 tabs 1RF 90 days Coding Level of Care Code New Pt Level 4 (71111) Diagnoses Essential hypertension I10 Microalbuminuria R80.9
[2025-05-03 14:49] VITALS: BP 148/70; PULSE 93; O2SAT 94; BMI 37.5
--- OUTSIDE RECORDS SUMMARY | 2025-05-03 20:07 | XMS_ITS | Patient Health Record ---
Author Organization [facility] Address [address] [place] [address] Care Team Providers Care Saddle Maker Name Role Phone Parul KENDRICK, John Primary Care Provider Unavaila Joel Bridges [phone] Reason For Referral No Information Encounters Encounter Location Date Provider Diagnosis [facility] [address] [place] [address] 06/20/2024 Joel Holder Plan Of Treatment No Information Insurance Providers Payer Name Payer Address Payer Phone Subscriber Number Group Number Insured Name Patient Relationship to Insured Coverage Start Date Coverage End Date [facility] [address] [place] [address] [id number] YESIKA RIVAS Self - patient is the insured
== END 2025-05-03 15:06 | disposition home or self-care (01) ==
LOC: HO.HKA 14:44
PROVIDERS: PCP Internal Medicine; Visit Provider Internal Medicine Hypertension Specialist
DX: I10 Essential (primary) hypertension (principal); R80.9 Proteinuria, unspecified
CPT/HCPCS: 99204

== ENCOUNTER → 2025-05-03 14:43 | Outpatient (BNVA) | payer MEDICARE, SELFPAY | PROVIDERS: PCP Internal Medicine; Visit Provider Internal Medicine Hypertension Specialist | DX: I10 Essential (primary) hypertension (principal); E11.42 Type 2 diabetes mellitus with diabetic polyneuropathy; Z79.4 Long term (current) use of insulin; Z79.84 Long term (current) use of oral hypoglycemic drugs; Z79.85 Long-term (current) use of injectable non-insulin antidiabetic drugs; R80.9 Proteinuria, unspecified; R60.0 Localized edema; F10.10 Alcohol abuse, uncomplicated; R79.89 Other specified abnormal findings of blood chemistry | CPT/HCPCS: 99202 ==